=== PATIENT | female | born 1930 | race Caucasian/White ===

== ENCOUNTER 2016-02-28 04:04 | Inpatient (IN) ==
[2016-02-28] MEDS ORDERED: CATAPRES PO STA (04:45)
[2016-02-28] MEDS ORDERED: ZOFRAN 4 MG/2 ML IM STA (04:50)
[2016-02-28] MEDS ORDERED: MORPHINE 2 MG/ML SYRINGE IVP STA (04:50)
--- NOTE | 2016-02-28 04:54 | ED.PDOC ---
General ED Provider: Dr. KRZYSZTOF JONES Chief Complaint: Urinary Problem Stated Complaint: Been hurting in the lower back since saturday, the pain is getting gradually worse, no recent injury or falls, having problems with BM, today morning left arm tngling so she came for the evaluation Time Seen by Physician: 04:52 Mode of Arrival: Ambulance Information Source: Patient Primary Care Provider: RANDY ZAPATA Nursing and Triage Documentation Reviewed and Agree: Yes Musculoskeletal Complaint Exam - Back Pain Complaint/Exam Mechanism of Injury: Reports: No known trauma Symptoms Are: Still present Timing: Constant Episodes Lasting: Days Initial Severity: Moderate Current Severity: Moderate Location: Reports: Discrete Character: Reports: Aching, Throbbing Aggravating: Reports: Movements Alleviating: Reports: None Associated Signs and Symptoms: Denies: Swelling, Redness, Bruising, Fever, Weakness, Numbness, Tingling, Abdominal pain, Flank pain, Bladder incontinence, Bowel incontinence, Weight loss, Pain with weight bearing TAD Risk Factors: Reports: None AAA Risk Factors: Reports: None Cauda Equina Risk Factors: Reports: None Epidural Abcess Risk Factors: Reports: None Related Surgical History: Reports: None Focal Tenderness: Yes Paraspinal Muscle Tenderness: Yes Paraspinal Muscle Spasm: Yes Scoliosis: No Lordosis: No Kyphosis: No SLR Test: Right Negative, Left Negative Hip Motion Testing Pain: Right Negative, Left Negative Focal Weakness: Present: None Focal Sensory Loss: Present: None Gait: Present: Normal Differential Diagnoses: Fracture, Renal Colic, Strain, Sprain Review of Systems - Review Of Systems Constitutional: Reports: Malaise, Weakness Eyes: Reports: No symptoms Ears, Nose, Mouth, Throat: Reports: No symptoms Respiratory: Reports: No symptoms Cardiac: Reports: No symptoms GI: Reports: No symptoms : Reports: Pain Musculoskeletal: Reports: Back pain, Joint pain Skin: Reports: No symptoms Neurological: Reports: No symptoms Endocrine: Reports: No symptoms Hematologic/Lymphatic: Reports: No symptoms All Other Systems: Reviewed and Negative Past Medical History - Past Medical History Previously Healthy: No Endocrine: Reports: Dyslipidemia Cardiovascular: Reports: CAD, Hypertension, Other (PAD s/p left thigh Fem-pop) Respiratory: Reports: None Hematological: Reports: Anemia Gastrointestinal: Reports: GERD Genitourinary: Reports: None Neuro/Psych: Reports: None Musculoskeletal: Reports: Arthritis Cancer: Reports: None Last Menstrual Period: N/A - Surgical History General Surgical History: Reports: None, CABG (200, ), Other (CEA) - Family History Family History: Reports: None - Social History Smoking Status: Former smoker Hx Substance Use: No Alcohol Screening: None - Immunizations Tetanus Shot up to Date: No (2004) Physical Exam - Physical Exam Appearance: Ill-appearing, Thin Ill-appearing: Mild Eyes: Conjunctiva clear ENT: Ears normal, Nose normal, Oropharynx normal Respiratory: Airway patent, Breath sounds clear, Breath sounds equal, Respirations nonlabored Cardiovascular: RRR, Pulses normal, No rub, No murmur GI/: Soft, Nontender, No masses, Bowel sounds normal, No Organomegaly Musculoskeletal: Normal strength, ROM intact, No edema, No calf tenderness Skin: Warm (no rash in lower back), Dry, Normal color Neurological: Sensation intact, Motor intact, Reflexes intact, Cranial nerves intact, Alert, Oriented Psychiatric: Affect appropriate, Mood appropriate Interpretation - Radiology Interpretation Radiology Interpretation By: Radiologist Radiology Results: Negative Exam Interpreted: CT Scan Re-Evaluation - Re-Evaluation Time of Re-Evaluation: 06:50 (still hurting a lot in the lower back) Status: Unchanged Critical Care Note - Critical Care Note Total Time (mins): 0 Course - Course Hematology/Chemistry: 02/28/16 05:41 02/28/16 05:41 Orders, Labs, Meds: Lab Review 02/28/16 02/28/16 05:18 05:41 WBC 10.19 RBC 4.05 L Hgb 12.0 Hct 37.4 MCV 92.3 MCH 29.6 MCHC 32.1 RDW Coeff of Alyssa 14.1 Plt Count 281 Immature Gran % (Auto) 0.4 Neut % (Auto) 83.0 Lymph % (Auto) 8.9 L [place] % (Auto) 7.2 Eos % (Auto) 0.1 Baso % (Auto) 0.4 Immature Gran # (Auto) 0.0 Neut # 8.5 H Lymph # 0.9 [place] # 0.7 Eos # 0.0 Baso # 0.0 D-Dimer 1.30 Sodium 138 Potassium 4.0 Chloride 104 Carbon Dioxide 24 Anion Gap 14.0 BUN 18 Creatinine 1.08 Estimated GFR (MDRD) 48.00 BUN/Creatinine Ratio 16.66 Glucose 141 H Calcium 9.2 Total Bilirubin 0.50 AST 19 ALT 14 Alkaline Phosphatase 82 Total Creatine Kinase 46 Troponin I 0.0140 B-Natriuretic Peptide 228 H Total Protein 7.6 Albumin 3.4 Globulin 4.2 Albumin/Globulin Ratio 0.81 Urine Color Yellow Urine Clarity Clear Urine pH 5.0 Ur Specific Triangle 1.020 Urine Protein Negative Urine Glucose (UA) Negative Urine Ketones Negative Urine Blood Negative Urine Nitrite Negative Urine Bilirubin Negative Urine Urobilinogen 0.2 Ur Leukocyte Esterase 1+ Urine Microscopic WBC 2-5 Ur Squamous Epith Cells 2-5 Urine Bacteria 1+ Orders Category Date Time Status EKG-(ED ONLY) Stat CARDIO 02/28/16 04:51 Completed Bladder Scan [ED BLADDER SCAN] .ONCE EMERGENCY 02/28/16 04:46 Active Electrician Radio [ED HI RANGER OPERATOR APPLIED] .ONCE EMERGENCY 02/28/16 05:09 Active B-TYPE NATRIURETIC PEPTIDE Stat LAB 02/28/16 05:41 Completed CBC W/ AUTO DIFF Stat LAB 02/28/16 05:41 Completed COMPREHENSIVE METABOLIC PANEL Stat LAB 02/28/16 05:41 Completed CREATINE KINASE Stat LAB 02/28/16 05:41 Completed D-DIMER Stat LAB 02/28/16 05:41 Completed TROPONIN I Stat LAB 02/28/16 05:41 Completed URINALYSIS C & S IF INDICATED Stat LAB 02/28/16 05:18 Completed URINE CULTURE Stat LAB 02/28/16 05:53 Received Clonidine HCl [Catapres] MEDS 02/28/16 04:45 Discontinued 0.2 mg PO ONCE STA Morphine Sulfate [Morphine 2 mg/ml Syringe] MEDS 02/28/16 04:50 Discontinued 2 mg IVP ONCE STA Ondansetron HCl/Pf [Zofran 4 mg/2 ml] MEDS 02/28/16 04:50 Discontinued 4 mg IM ONCE STA CHEST, 1V AP ONLY Stat RADS 02/28/16 04:[address] ABDOMEN/PELVIS WO CONTRAST Stat RADS 02/28/16 04:[address] HEAD W/O CONTRAST Stat RADS 02/28/16 04:[address] LUMBAR SPINE W/O CONTRAST Stat RADS 02/28/16 04:50 Taken Medications Discontinued Medications Generic Name Dose Route Start Last Admin Trade Name Freq PRN Reason Stop Dose Admin Clonidine 0.2 mg 02/28/16 04:45 02/28/16 05:02 Catapres PO 02/28/16 04:46 0.2 mg ONCE STA Administration Morphine Sulfate 2 mg 02/28/16 04:50 02/28/16 05:33 Morphine 2 Mg/Ml Syringe IVP 02/28/16 04:51 2 mg ONCE STA Administration Ondansetron HCl 4 mg 02/28/16 04:50 02/28/16 05:33 Zofran 4 Mg/2 Ml IM 02/28/16 04:51 4 mg ONCE STA Administration Vital Signs: Temp Pulse Resp BP Pulse Ox 02/28/16 04:07 98 F 83 20 257/102 H 97 Departure - Departure Time of Disposition: 06:51 Disposition: ADMITTED INPATIENT Discharge Problem: Hypertension Qualifiers: Hypertension type: essential hypertension Qualifier Code: (I10) Essential ( primary) hypertension Back pain Qualifiers: Back pain location: low back pain Chronicity: acute Back pain laterality: right Sciatica presence: without sciatica Qualifier Code: (M54.5) Low back pain UTI (urinary tract infection) Qualifiers: Urinary tract infection type: acute cystitis Hematuria presence: without hematuria Qualifier Code: (N30.00) Acute cystitis without hematuria Instructions: Hypertension (ED) Condition: Stable Pt referred to PMD for follow-up: Yes Allergies/Adverse Reactions: Allergies brimonidine [From Alphagan P] Adverse Reaction (Verified 02/28/16 04:33) Home Medications: Ambulatory Orders Amlodipine Besylate/Benazepril [Lotrel 5-10 mg Capsule] 5 - 10 mg PO 2 TIMES PER WEEK 01/12/13 Ascorbic Acid [Vitamin C] 500 mg PO DAILY 01/12/13 Aspirin [Aspirin EC] 1 tab PO DAILY 01/12/13 Atorvastatin Calcium [Lipitor] 1 tab PO DAILY 01/12/13 Brimonidine Tartrate/Timolol [Combigan Eye Drops] 1 drop EACHEYE BID 01/12/13 Brinzolamide [Azopt] 1 drop EACHEYE TID 01/12/13 Carvedilol 6.25 mg PO BID 01/12/13 Chlordiazepoxide/Clidinium Br [Librax 2.5/5 mg] 1 cap PO BID 01/12/13 Cholecalciferol (Vitamin D3) [Vitamin D] 1 cap PO DAILY 01/12/13 Latanoprost [Xalatan] 1 drop EACHEYE BEDTIME 01/12/13 Montelukast Sodium [Singulair] 1 tab PO DAILY 01/12/13 Omeprazole Magnesium [Prilosec Otc] 1 tab PO DAILY 01/12/13 Vitamin E 1 cap PO DAILY 01/12/13 Clopidogrel Bisulfate [Plavix] 75 mg PO DAILY 02/28/16 Disposition Discussed With: Patient, Family
[2016-02-28 05:44] LABS: BASOPHILS % (AUTO) 0.4 % (0.0-3.0); EOSINOPHILS % (AUTO) 0.1 % (0.0-7.0); HEMATOCRIT 37.4 % (37.0-47.0); IMMATURE GRANULOCYTE % (AUTO) 0.4 % (0.0-5.0); LYMPHOCYTES # (AUTO) 0.9 K/uL (0.60-3.4); LYMPHOCYTES % (AUTO) 8.9 (10.0-50.0); MEAN CORPUSCULAR HEMOGLOBIN 29.6 pg (27.0-31.0); MEAN CORPUSCULAR HGB CONC 32.1 (31.8-35.4); MEAN CORPUSCULAR VOLUME 92.3 fl (81.0-99.0); MONOCYTES # (AUTO) 0.7 K/uL (0.4-2.0); MONOCYTES % (AUTO) 7.2 (0-10); NEUTROPHILS # (AUTO) 8.5 K/ul (2.0-6.9); PLATELET COUNT 281 10^3/uL (140-440); RED BLOOD COUNT 4.05 10^6/ul (4.20-5.40); WHITE BLOOD COUNT 10.19 K/ul (4.6-10.2)
[2016-02-28 05:46] LABS: BILIRUBIN,URINE Negative (NEGATIVE); KETONES,URINE Negative (NEGATIVE); LEUKOCYTE ESTERASE ,URINE 1+ (NEGATIVE); NITRITE,URINE Negative (NEGATIVE); PROTEIN,URINE Negative (NEGATIVE); URINE, BLOOD Negative (NEGATIVE)
[2016-02-28 05:52] LABS: ADD URINE MICROSCOPIC YES; BACTERIA,URINE 1+ (NOT PRESENT)
[2016-02-28 06:10] LABS: ALBUMIN 3.4 g/dL (3.4-5.0); ALBUMIN/GLOBULIN RATIO 0.81; BILIRUBIN,TOTAL 0.5 mg/dL (0.00-1.20); BUN/CREATININE RATIO 16.66; CALCIUM 9.2 mg/dL (8.2-10.2); CREATININE 1.08 mg/dL (0.60-1.30); TOTAL PROTEIN 7.6 g/dL (5.8-8.1); TROPONIN I 0.014 ng/ml (0.0000-0.4000)
--- NOTE | 2016-02-28 06:31 | CT ---
EXAM: CT scan brain without contrast HISTORY: Headache COMPARISON: None. FINDINGS: Contiguous axial images obtained from the skull base to the convexities without contrast utilizing 5-mm collimation. Sagittal and coronal reconstructions were imaged and reviewed. The wayne tricles and CSF spaces are prominent compatible with age appropriate atrophy. There is periventricu lar hypodensity noted compatible with chronic microvascular disease. Atherosclerotic changes are se en involving the bilateral vertebral and internal carotids at the level of the cavernous sinus. Vis ualized paranasal sinuses and mastoid air cells are clear. IMPRESSION: Age appropriate atrophy with chronic microvascular disease. ASVD.
--- NOTE | 2016-02-28 06:45 | CT ---
EXAM: CT scan abdomen pelvis without contrast HISTORY: Back and flank pain COMPARISON: None. FINDINGS: Contiguous axial images obtained through the abdomen pelvis without contrast utilizing 3- mm collimation. Sagittal and coronal reconstructions were imaged and reviewed.. There are bibasila r bronchiectatic changes. There is moderate sized hiatal hernia. The gallbladder is fluid filled w ithout cholelithiasis. There is dense ASVD involving the aorta and mesenteric vessels without aneur ysm. Benign granulomatous changes are seen within the spleen. The pancreas is atrophic.. The live r and adrenal glands have normal unenhanced CT appearance. Renovascular calcification is seen withi n both kidneys. There is normal appendix. There is extensive diverticulosis without diverticulitis . There is colonic fecal stasis. . There is lumbar dextroscoliosis with extensive degenerative arya nges throughout the visualized thoracolumbar spine bilateral hips. IMPRESSION: Bibasilar bronchiectatic changes. Moderate sized hiatal hernia. Extensive ASVD without aneurysm. Extensive diverticulosis without diverticulitis. Colonic fecal stasis without obstruction or free fluid. Normal appendix.
[2016-02-28] MEDS ORDERED: MORPHINE 2 MG/ML SYRINGE IVP PRN (06:53)
[2016-02-28] MEDS ORDERED: ZOFRAN 4 MG/2 ML IVP PRN (06:53)
[2016-02-28] MEDS ORDERED: DECADRON 4 MG/ML SDV IM STA (06:53)
--- NOTE | 2016-02-28 06:54 | CT ---
EXAM: CT scan lumbar spine HISTORY: Back pain COMPARISON: None. FINDINGS: Contiguous axial images obtained through the lumbar spine utilizing 3-mm collimation. Sa gittal and coronal reconstructions were imaged and reviewed.. There is moderate dextroscoliosis valerie tered at L2-L3. Marked degenerate disc disease with endplate degenerative changes are noted at T12- L1 through L4-L5. Moderate generalized osteopenia. Segmental analysis: T12-T1: Spondylitic bulge narrows the AP dimension of the central canal. Marginal spurring narrows both neur al foramen. L1-L2: There is moderate facet arthropathy with marginal spurring narrowing the left neural foramen L2-L3: Spondylitic bulge with facet arthropathy triangulate the central canal with bilateral neural foramin al narrowing left greater than right.. L3-L4: There is a moderate spondylitic bulge with moderate facet arthropathy. Central canal and right neur al foramen are patent. There is marked narrowing left neural foramen. L4-L5: Spondylitic bulge mildly narrows the central canal. Facet t arthropathy narrowing both neural forame n. L5-S1: There is mild spondylitic bulge with facet arthropathy. . There is moderate facet arthropathy with mild right neural foraminal narrowing. IMPRESSION: Moderate dextroscoliosis centered L2-L3. Extensive multilevel degenerate disc disease with multilevel central canal and foraminal stenosis as described.
--- NOTE | 2016-02-28 07:05 | DI ---
EXAM: CHEST FRONTAL VIEW HISTORY: Cough. COMPARISON: 01/12/2013 FINDINGS: Heart size is within normal limits. There is moderate aortic atherosclerosis. Sternotom y wires are present. There is diffuse, chronic appearing interstitial accentuation. Hyperinflation is noted. No definite consolidated pneumonia. IMPRESSION: A component chronic obstructive pulmonary disease is suggested radiographically. Correl ate clinically. No definite consolidated pneumonia.]
[2016-02-28 08:32] VITALS: BMI 15.3
[2016-02-28] MEDS ORDERED: TORADOL IVP STA (08:32)
[2016-02-28] MEDS ORDERED: TORADOL ONE (08:44)
[2016-02-28] MEDS ORDERED: VITAMIN E PO SCH (09:00)
[2016-02-28] MEDS ORDERED: ATORVASTATIN CALCIUM PO SCH (09:00)
[2016-02-28] MEDS ORDERED: NON-FORMULARY MEDICATION (Cholecalciferol (Vitamin D3) [Vitamin D3] 1 CAP) PO SCH ×22 (09:00)
[2016-02-28] MEDS ORDERED: ASCORBIC ACID 500 MG PO SCH (09:00)
[2016-02-28] MEDS ORDERED: NON-FORMULARY MEDICATION (Omeprazole Magnesium [Prilosec Otc] 1 TAB) PO SCH (09:00)
[2016-02-28] MEDS: ROCEPHIN 1 GM in SODIUM CHLORIDE 50 ML IV SCH (09:01)
[2016-02-28] MEDS: LIBRAX 2.5/5 MG PO SCH ×2 (09:01→20:08)
[2016-02-28] MEDS: ZESTRIL PO SCH (09:01)
[2016-02-28] MEDS: PRILOSEC PO SCH (09:01)
[2016-02-28] MEDS: VITAMIN C PO SCH (09:01)
[2016-02-28] MEDS: VITAMIN D PO SCH (09:01)
[2016-02-28] MEDS: PLAVIX PO SCH (09:02)
[2016-02-28] MEDS: COREG PO SCH ×2 (09:02→20:08)
[2016-02-28] MEDS: SINGULAIR PO SCH (09:02)
[2016-02-28] MEDS: LIPITOR PO SCH (09:02)
[2016-02-28] MEDS: LOVENOX SUBCUT SCH (09:02)
[2016-02-28] MEDS: VITAMIN E PO SCH (09:02)
[2016-02-28] MEDS: ASPIRIN EC PO SCH (09:02)
[2016-02-28 13:28] LABS: TROPONIN I 0.054 ng/ml (0.0000-0.4000)
[2016-02-28] MEDS: TIMOLOL EACHEYE SCH ×2 (14:57→20:19)
[2016-02-28] MEDS: [UNRECOGNIZED DRUG - OTHER] EACHEYE SCH ×2 (14:57→20:19)
[2016-02-28] MEDS: BRIMONIDINE TARTRATE EACHEYE SCH ×2 (14:57→20:19)
[2016-02-28] MEDS: BRINZOLAMIDE EACHEYE SCH ×3 (14:57→20:19)
[2016-02-28] MEDS: XALATAN OP SCH (20:09)
[2016-02-28 21:15] LABS: TROPONIN I 0.029 ng/ml (0.0000-0.4000)
[2016-02-29 05:24] LABS: BASOPHILS % (AUTO) 0.3 % (0.0-3.0); EOSINOPHILS % (AUTO) 0.2 % (0.0-7.0); HEMATOCRIT 34.6 % (37.0-47.0); HEMOGLOBIN 10.9 g/dl (12.0-16.0); IMMATURE GRANULOCYTE % (AUTO) 0.4 % (0.0-5.0); LYMPHOCYTES # (AUTO) 1.4 K/uL (0.60-3.4); MEAN CORPUSCULAR HEMOGLOBIN 29.4 pg (27.0-31.0); MEAN CORPUSCULAR HGB CONC 31.5 (31.8-35.4); MEAN CORPUSCULAR VOLUME 93.3 fl (81.0-99.0); MONOCYTES # (AUTO) 1.3 K/uL (0.4-2.0); MONOCYTES % (AUTO) 11.1 (0-10); PLATELET COUNT 261 10^3/uL (140-440); RED BLOOD COUNT 3.71 10^6/ul (4.20-5.40); WHITE BLOOD COUNT 11.85 K/ul (4.6-10.2)
[2016-02-29 05:41] LABS: ALBUMIN 2.9 g/dL (3.4-5.0); ALBUMIN/GLOBULIN RATIO 0.81; BILIRUBIN,TOTAL 0.31 mg/dL (0.00-1.20); BUN/CREATININE RATIO 23.07; CALCIUM 9.1 mg/dL (8.2-10.2); CREATININE 1.04 mg/dL (0.60-1.30); TOTAL PROTEIN 6.5 g/dL (5.8-8.1)
[2016-02-29] MEDS ORDERED: PEG EACHEYE PRN (09:16)
[2016-02-29] MEDS ORDERED: PROPYLENE GLYCOL EACHEYE PRN (09:16)
[2016-02-29] MEDS ORDERED: [UNRECOGNIZED DRUG - OTHER] EACHEYE PRN (09:16)
[2016-02-29] MEDS: ZESTRIL PO SCH (09:42)
[2016-02-29] MEDS: PRILOSEC PO SCH (09:42)
[2016-02-29] MEDS: PLAVIX PO SCH (09:42)
[2016-02-29] MEDS: VITAMIN D PO SCH (09:42)
[2016-02-29] MEDS: LIPITOR PO SCH (09:42)
[2016-02-29] MEDS: VITAMIN E PO SCH (09:43)
[2016-02-29] MEDS: COREG PO SCH ×2 (09:43→18:03)
[2016-02-29] MEDS: SINGULAIR PO SCH (09:43)
[2016-02-29] MEDS: LIBRAX 2.5/5 MG PO SCH ×2 (09:44→21:10)
[2016-02-29] MEDS: ASPIRIN EC PO SCH (09:44)
[2016-02-29] MEDS: VITAMIN C PO SCH (09:44)
[2016-02-29] MEDS: LOVENOX SUBCUT SCH (09:45)
[2016-02-29] MEDS: TIMOLOL EACHEYE SCH ×3 (09:47→20:30)
[2016-02-29] MEDS: BRIMONIDINE TARTRATE EACHEYE SCH ×3 (09:47→20:30)
[2016-02-29] MEDS: [UNRECOGNIZED DRUG - OTHER] EACHEYE SCH ×3 (09:47→20:30)
[2016-02-29] MEDS: BRINZOLAMIDE EACHEYE SCH ×4 (09:48→20:19)
[2016-02-29] MEDS: ROCEPHIN 1 GM in SODIUM CHLORIDE 50 ML IV SCH (10:05)
--- NOTE | 2016-02-29 10:38 | HP ---
DATE OF SERVICE: 02/28/16 REASON FOR HOSPITALIZATION: Back pain, lower right flank going to the right lower quadrant with duration of 24 hours. HISTORY OF PRESENT ILLNESS: The patient is an 85 year old white female was seen in the emergency with urinary tract infection type of symptoms. The patient's U/A was abnormal. Showed 1+ Leukocytes, +1 urine bacteria. The patient's blood pressure also was noted to be high at 257/102. The patient also had some possibility of back pain coming from her DJD of the spine. In the emergency room the patient was given Catapres 0.2mg one dose along with Morphine sulfate and Zofran. By the time the patient came to the floor her systolic blood pressure was 180. REVIEW OF SYSTEMS: CONSTITUTIONAL: No night sweats. Fatigue and weakness. No fever or chills. HEENT: Eyes: No visual changes. No eye pain. No eye discharge. ENT: No runny nose. No epistaxis. No sinus pain. No sore throat. No odynophagia. No ear pain. No congestion. RESPIRATORY: No cough, no congestion. No hemoptysis. CARDIOVASCULAR: No angina symptoms. No CHF symptoms. No atypical chest pain for CAD. No palpitations. No shortness of breath. Left arm tingling but no chest pain. No PND. No orthopnea. GASTROINTESTINAL: No abdominal pain. Mild Nausea lately. No diarrhea or constipation. No hematemesis. No hematochezia. Right flank pain going to the right upper quadrant rated as 3 to 4 on scale of 1 to 10. The patient says that she is feeling somewhat better. Normal appetite. GENITOURINARY: No urgency. No frequency. No dysuria. No hematuria. No obstructive symptoms. No discharge. No pain. No significant abnormal bleeding. MUSCULOSKELETAL: No musculoskeletal pain. No joint swelling. No arthritis. NEUROLOGICAL: No headache. No neck pain. No syncope. No seizures. No dizziness. PSYCHIATRIC: Not anxious. No depression. No suicidal thoughts. No homicidal thoughts. SKIN: No rash. No lesions. No wounds. ENDOCRINE: No unexplained weight loss. No weight gain. HEMATOLOGIC/LYMPHATIC: No anemia. No purpura. No petechiae. No prolonged or excessive bleeding. No palpable lymph nodes. PERSONAL/FAMILY/SOCIAL HISTORY: The patient is and lives with the help of the family. Non-smoker. No alcohol abuse. Does most of the activity of daily living. PAST MEDICAL/SURGICAL PROBLEMS: History of peripheral arterial disease with left Fem Pop bypass surgery Hypertension Coronary artery disease Dyslipidemia Coronary bypass surgery MEDICATIONS: Amlodipine Benazepril 5-10mg twice a day Ascorbic acid 500mg PO daily Aspirin 81mg PO daily Atorvastatin 40mg PO daily Carvedilol 6.25mg PO twice a day Librax twice a day Singulair 10mg PO daily Prilosec 20mg PO daily Plavix 75mg PO daily ALLERGIES: Alphagan P- adverse reaction eye drops likely PHYSICAL EXAMINATION: GENERAL: The patient is oriented to time, place and person. VITAL SIGNS: Temperature 98, pulse 83, respiratory rate 20, blood pressure 257/ 102 pulse ox 97%. HEENT: Head normocephalic, atraumatic. Eyes: Extraocular muscles are intact. Pupils are equal, round and reactive to light and accommodation. Ears: No lesions. Nose appeared normal. Throat: No exudate or erythema. Face: Symmetrical NECK: Supple. No JVP, no carotid bruit. No lymphadenopathy or thyromegaly. LUNGS: Decreased breath sounds but clear to auscultation. Percussion note normal. Chest symmetrical. HEART: S1, S2, no S3. No murmurs. No cyanosis or clubbing. No ascites. Pulses: Dorsalis pedis and posterior tibial pulses +1 to +2 both sides. ABDOMEN: Soft. Nontender. Bowel sounds active. No CVA tenderness. No mass felt. EXTREMITIES: No edema. Full range of motion of all extremities, equal. NEUROLOGIC: No focal deficit. Cranial nerves II through XII are grossly intact. No headache, no double vision or headache. SKIN: Not dry. Intact. Turgor - normal. LYMPHATIC: No palpable lymph nodes/no lymphedema. MUSCULOSKELETAL: Normal joints with no swelling. Muscle tone is normal. LABS: Hgb 12, hct 37, WBC 10,000 normal differential, creatinine 1, BUN 18, ALT AST normal, D-dimer negative, BNP 228 borderline high, U/A 1+ leukocyte esterase and 1+ bacteria and Troponin normal. EKG sinus rhythm, no acute changes. Chest x -ray chronic lung disease. CT scan of the lumbar spine moderate DJD of the spine , extensive DJD of the disc. CT scan of abdomen moderate size hiatal hernia, Extensive ASVD and Extensive diverticulosis. CT of the brain age appropriate atrophy. ASSESSMENT: 1. Severe Hypertension 2. Urinary Tract Infection 3. Coronary bypass surgery 4. Left Fem Pop bypass surgery 5. Peripheral arterial disease 6. Dyslipidemia 7. Generalized Osteoarthritis PLAN: 1. Admit regular telemetry 2. Monitor blood pressure 3. Continue all BP medications 4. Vasotec IV for blood pressure over 160 Q 12 5. Rocephin 1 gram Q 24 hours. 6. Toradol 30 IV for the pain 12 hourly 7. Continue the rest of the medication as before. CONDITION: Stable TIME SPENT: More than 70 minutes. MTDD
[2016-02-29] MEDS ORDERED: DECADRON 4 MG/ML SDV IM STA (10:50)
[2016-02-29] MEDS: TORADOL IVP SCH ×2 (11:58→21:12)
[2016-02-29] MEDS: XALATAN OP SCH (21:20)
[2016-03-01 06:18] LABS: BASOPHILS # (AUTO) 0.1 K/uL (0-0.2); BASOPHILS % (AUTO) 0.6 % (0.0-3.0); EOSINOPHILS % (AUTO) 0.2 % (0.0-7.0); HEMATOCRIT 33.1 % (37.0-47.0); HEMOGLOBIN 10.7 g/dl (12.0-16.0); IMMATURE GRANULOCYTE % (AUTO) 0.4 % (0.0-5.0); LYMPHOCYTES # (AUTO) 1.8 K/uL (0.60-3.4); MEAN CORPUSCULAR HEMOGLOBIN 29.7 pg (27.0-31.0); MEAN CORPUSCULAR HGB CONC 32.3 (31.8-35.4); MEAN CORPUSCULAR VOLUME 91.9 fl (81.0-99.0); MONOCYTES # (AUTO) 1.1 K/uL (0.4-2.0); MONOCYTES % (AUTO) 9.9 (0-10); NEUTROPHILS # (AUTO) 7.8 K/ul (2.0-6.9); NEUTROPHILS % (AUTO) 71.9; PLATELET COUNT 269 10^3/uL (140-440); WHITE BLOOD COUNT 10.81 K/ul (4.6-10.2)
[2016-03-01] MEDS ORDERED: PRILOSEC PO SCH (06:30)
[2016-03-01 06:43] LABS: ALBUMIN 2.9 g/dL (3.4-5.0); ALBUMIN/GLOBULIN RATIO 0.81; BILIRUBIN,TOTAL 0.27 mg/dL (0.00-1.20); BUN/CREATININE RATIO 30.63; CALCIUM 8.9 mg/dL (8.2-10.2); CREATININE 1.11 mg/dL (0.60-1.30); TOTAL PROTEIN 6.5 g/dL (5.8-8.1)
[2016-03-01] MEDS ORDERED: ASPIRIN EC PO SCH (08:00)
[2016-03-01] MEDS ORDERED: CIPRO PO SCH (08:30)
[2016-03-01] MEDS: TORADOL IVP SCH (09:00)
[2016-03-01] MEDS: VITAMIN D PO SCH (09:08)
[2016-03-01] MEDS: ZESTRIL PO SCH (09:10)
[2016-03-01] MEDS: BRIMONIDINE TARTRATE EACHEYE SCH (09:13)
[2016-03-01] MEDS: [UNRECOGNIZED DRUG - OTHER] EACHEYE SCH (09:13)
[2016-03-01] MEDS: TIMOLOL EACHEYE SCH (09:13)
[2016-03-01] MEDS: BRINZOLAMIDE EACHEYE SCH (09:14)
[2016-03-01] MEDS: LIPITOR PO SCH (09:15)
[2016-03-01] MEDS: VITAMIN E PO SCH (09:15)
[2016-03-01] MEDS: PLAVIX PO SCH (09:15)
[2016-03-01] MEDS: VITAMIN C PO SCH (09:16)
[2016-03-01] MEDS: LIBRAX 2.5/5 MG PO SCH (09:16)
[2016-03-01] MEDS: COREG PO SCH (09:17)
[2016-03-01] MEDS: LOVENOX SUBCUT SCH (09:17)
[2016-03-01] MEDS: SINGULAIR PO SCH (09:17)
--- NOTE | 2016-03-01 11:05 | PCM.PROG ---
Attending Provider: ATTENDING PROVIDER: Dr. RANDY ZAPATA DATE OF SERVICE: 03/01/16 SUBJECTIVE: This 85 year old WHITE/ F was hospitalized 02/28/16. The patient is hospitalized with back pain. The patient's pain has resolved and she is feeling better. Blood pressure is under control. UTI was treated with Rocephin and Cipro was added. REVIEW OF SYSTEMS: CONSTITUTIONAL: No night sweats. No fatigue, malaise, lethargy. No fever or chills. HEENT: Eyes: No visual changes. No eye pain. No eye discharge. ENT: No runny nose. No epistaxis. No sinus pain. No odynophagia. No congestion. RESPIRATORY: No cough, no congestion. No hemoptysis. CARDIOVASCULAR: No angina symptoms. No CHF symptoms. No atypical chest pain for CAD. No palpitations. No shortness of breath. GASTROINTESTINAL: No abdominal pain. No nausea or vomiting. No diarrhea or constipation. No hematemesis. No hematochezia. GENITOURINARY: No urgency. No frequency. No dysuria. No hematuria. No obstructive symptoms. No discharge. No pain. No significant abnormal bleeding. MUSCULOSKELETAL: No musculoskeletal pain; no joint swelling. NEUROLOGICAL: Awake, alert, oriented to time, place and person. No headache. No neck pain. No syncope. No seizures. No dizziness. PSYCHIATRIC: Not anxious. No depression. No suicidal thoughts. No homicidal thoughts. SKIN: No rash. No lesions. No wounds. ENDOCRINE: No unexplained weight loss. No weight gain. HEMATOLOGIC/LYMPHATIC: No anemia. No purpura. No petechiae. No prolonged or excessive bleeding. No palpable lymph nodes. PHYSICAL EXAMINATION: GENERAL: The patient is awake, alert and oriented, lying in bed in no distress. VITAL SIGNS: Temperature 97.7 F, Pulse 81, Respiratory Rate 20, BP 154/71, Pulse Ox 96% HEENT: Head normocephalic, atraumatic. Eyes: Extraocular muscles are intact. Pupils are equal, round and reactive to light and accommodation. Ears: No lesions. Nose appeared normal. Throat: No exudate or erythema. NECK: Supple. No JVD, no carotid bruit. No lymphadenopathy or thyromegaly. LUNGS: Decreased breath sounds. Clear to auscultation. Percussion note normal. Chest symmetrical. HEART: S1, S2, no S3. No murmurs. No cyanosis or clubbing. No ascites. Pulses: Dorsalis pedis and posterior tibial pulses +1 to +2 both sides. ABDOMEN: Soft. Non-tender. Bowel sounds active. No CVA tenderness. No mass felt. EXTREMITIES: No edema. Full range of motion of all extremities, equal. NEUROLOGIC: No focal deficit. Cranial nerves II through XII are grossly intact. No headache, no double vision or headache. SKIN: Not dry. Intact. Turgor-normal. LYMPHATIC: No palpable lymph nodes/no lymphedema. MUSCULOSKELETAL: Normal joints with no swelling. Muscle tone is normal. LAB REVIEW: 03/01/16 05:45 03/01/16 05:45 03/01/16 05:45: WBC 10.81 H, RBC 3.60 L, Hgb 10.7 L, Hct 33.1 L, MCV 91.9, MCH 29.7, MCHC 32.3, RDW Coeff of Alyssa 14.2, Plt Count 269, Immature Gran % (Auto) 0.4, Neut % (Auto) 71.9, Lymph % (Auto) 17.0, [place] % (Auto) 9.9, Eos % (Auto) 0.2, Baso % (Auto) 0.6, Immature Gran # (Auto) 0.0, Neut # 7.8 H, Lymph # 1.8, [place] # 1.1, Eos # 0.0, Baso # 0.1, Sodium 138, Potassium 4.0, Chloride 106, Carbon Dioxide 23, Anion Gap 13.0, BUN 34 H, Creatinine 1.11, Estimated GFR ( MDRD) 47.00, BUN/Creatinine Ratio 30.63, Glucose 80 L, Calcium 8.9, Total Bilirubin 0.27, AST 21, ALT 16, Alkaline Phosphatase 74, Total Protein 6.5, Albumin 2.9 L, Globulin 3.6, Albumin/Globulin Ratio 0.81 ASSESSMENT: 1. Back pain/radiculopathy resolving 2. Hypertension controlled 3. UTI controlled 4. Cardiovascular status stable PLAN: 1. Discharge home. 2. Echo to evaluate LV function. 3. Will see back in 5 to 7 days. 4. Advised Tylenol Arthritis 650 mg two twice a day. 5. May take Ibuprofen only once in awhile; to take with meal. 6. Change Lotrel to 5/10 mg one a day. 7. Discontinue Rocephin. 8. Start Cipro 250 mg b.i.d. for 3 days. Plan and coordination of the patient's care discussed in the presence of Yeast Stacker and nurse. EDUCATION: Discussed discharge plans with the patient. Discussed medications and their side effects. The patient voiced understanding and is agreeable. CONDITION: Stable SCRIBED BY: CELSO PALAFOX Stars Coordinator scribed while in presence of service performed by Dr. RANDY ZAPATA on 03/01/16 ([id number])
--- NOTE | 2016-03-01 11:07 | DS ---
DATE OF SERVICE: 03/01/16 FINAL DIAGNOSIS: 1. HYPERTENSION 2. BACK PAIN 3. MULTILEVEL DDD LUMBAR SPINE 4. UTI 5. CAD 6. PAD WITH LEFT FEMORAL-POPLITEAL BYPASS 7. DYSLIPIDEMIA 8. CABG 9. CAROTID ENDARTERECTOMY, BILATERAL 10. OSTEOARTHRITIS DISCHARGE INSTRUCTIONS: Followup appointment has been made with Dr. Hawkins on 03/06/2016 at 11:15 a.m. MEDICATIONS AT DISCHARGE: 1. Brinzolamide (Azopt) 15 mL drops one drop each eye b.i.d. 2. Brimonidine/Timolol one drop each eye b.i.d. 3. Omeprazole (Prilosec) one tab p.o. daily 4. Cholecalciferol (Vitmain D3) one cap p.o. daily 5. Vitamin E one cap p.o. daily 6. Ascorbic Acid (Vitamin C) 500 mg p.o. daily 7. Aspirin 81 mg one tablet p.o. daily 8. Carvedilol 6.25 mg p.o. b.i.d. 9. Chlordiazepoxide/Clidinium one cap p.o. b.i.d. 10. Atorvastatin one tab p.o. daily 40 mg 11. Montelukast (Singulair) 10 mg one tab p.o. daily 12. Latanoprost (Xalatan) one drop each eye at bedtime 13. Clopidogrel (Plavix) 75 mg p.o. daily 14. Systane eyedrops one drop each eye p.r.n. MEDICATION CHANGE: 1 Take Lotrel 5-10 mg daily for hypertension 2. May take Tylenol Arthritis 2 tablets every 12 hours for pain 3. May take Ibuprofen for severe back pain but take only with food 4. May take stool softener (Colace) 1-2 daily for constipation NEW PRESCRIPTIONS: Cipro 250 mg b.i.d. for 3 days DIET INSTRUCTIONS: Regular as tolerated ACTIVITY: Gradually resume activity as tolerated. Use walker with ambulation in and out of home when needed. SMOKING: Non applicable DISEASE SPECIFIC EDUCATION: Back pain, pain medication, Lotrel administration, activity and appointment. HOSPITAL COURSE: The patient is hospitalized with severe hypertension, UTI, back pain and right flank pain. The patient's condition has improved with Toradol IV 30 mg along with Morphine. UTI was questionable and was treated with Rocephin. The patient is going to be discharged on Cipro. Blood pressure has been under control with borderlne systolic hypertension. The patient is advised to take Lotrel every day (she was taking only twice a week). Cardiovascular status is stable. CONDITION: Stable. TIME SPENT: More than 60 minutes. MTDD
--- NOTE | 2016-03-01 12:16 | CM.DICTOOL ---
ADMISSION: 02/28/16 07:46 DISCHARGE: 2016 DATE OF SERVICE: 03/01/16 FINAL DIAGNOSIS Hypertension Back pain Multi-level DDD Lumbar Spine UTI CAD PAD with Left Femoral-Popliteal Bypass Dyslipidemia CABG Carotid Endarterectomy, bilateral Osteoarthritis LAST VITALS Temp Pulse Resp BP Pulse Ox 97.7 F 81 20 154/71 H 96 03/01/16 05:25 03/01/16 05:25 03/01/16 05:25 03/01/16 05:25 03/01/16 05:25 ACTIVE MEDICATIONS Ascorbic Acid (Vitamin C) 500 mg PO DAILY [facility] Last Admin: 03/01/16 09:16 Dose: 500 mg Aspirin (Aspirin Ec) 81 mg PO DAILYWM [facility] Last Admin: 03/01/16 09:16 Dose: 81 mg Atorvastatin Calcium (Lipitor) 40 mg PO DAILY [facility] Last Admin: 03/01/16 09:15 Dose: 40 mg Carvedilol (Coreg) 6.25 mg PO BIDWM [facility] Last Admin: 03/01/16 09:17 Dose: 6.25 mg Chlordiazepoxide/Clidinium (Librax 2.5/5 Mg) 1 cap PO BID [facility] Last Admin: 03/01/16 09:16 Dose: 1 cap Cholecalciferol (Vitamin D) 1,000 unit PO DAILY [facility] Last Admin: 03/01/16 09:08 Dose: 1,000 unit Ciprofloxacin (Cipro) 250 mg PO BIDCIPRO [facility] Last Admin: 03/01/16 09:16 Dose: 250 mg ( new prescription) Clopidogrel Bisulfate (Plavix) 75 mg PO DAILY [facility] Last Admin: 03/01/16 09:15 Dose: 75 mg Latanoprost (Xalatan) 1 drop OP BEDTIME [facility] Last Admin: 02/29/16 21:20 Dose: 1 drop Amlodipine/Benazepril (Lotrel 5-10 mg) 1 Daily Last Admin: Montelukast Sodium (Singulair) 10 mg PO DAILY [facility] Last Admin: 03/01/16 09:17 Dose: 10 mg Non-Formulary Medication (Brimonidine Tartrate/Timolol [Combigan 0.2%-0.5% Eye Drops]) 1 drop EACHEYE BID [facility] Last Admin: 03/01/16 09:13 Dose: 1 drop Non-Formulary Medication (Brinzolamide [Azopt]) 1 drop EACHEYE TID [facility] Last Admin: 03/01/16 09:14 Dose: 1 drop Non-Formulary Medication (Propylene Glycol/Peg 400 [Systane Ultra 0.4-0.3% Eye Drp]) 1 drop EACHEYE PRN PRN PRN Reason: DRY EYES Omeprazole (Prilosec) 20 mg PO QDAC [facility] Last Admin: 03/01/16 07:51 Dose: 20 mg Vitamin E (Vitamin E) 400 unit PO DAILY [facility] Last Admin: 03/01/16 09:15 Dose: 400 unit ALLERGIES brimonidine [From Alphagan P] Adverse Reaction (Verified 02/28/16 04:33) NEW PRESCRIPTIONS: Cipro 250 mg BID for 3 days SMOKING: Not Applicable DISEASE SPECIFIC EDUCATION: Back Pain Pain Medication Lotrel Administration Activity Appointment LAB REVIEW: 03/01/16 05:45 03/01/16 05:45 03/01/16 05:45: WBC 10.81 H, RBC 3.60 L, Hgb 10.7 L, Hct 33.1 L, MCV 91.9, MCH 29.7, MCHC 32.3, RDW Coeff of Alyssa 14.2, Plt Count 269, Immature Gran % (Auto) 0.4, Neut % (Auto) 71.9, Lymph % (Auto) 17.0, [place]pson % (Auto) 9.9, Eos % (Auto) 0.2, Baso % (Auto) 0.6, Immature Gran # (Auto) 0.0, Neut # 7.8 H, Lymph # 1.8, Upson # 1.1, Eos # 0.0, Baso # 0.1, Sodium 138, Potassium 4.0, Chloride 106, Carbon Dioxide 23, Anion Gap 13.0, BUN 34 H, Creatinine 1.11, Estimated GFR ( MDRD) 47.00, BUN/Creatinine Ratio 30.63, Glucose 80 L, Calcium 8.9, Total Bilirubin 0.27, AST 21, ALT 16, Alkaline Phosphatase 74, Total Protein 6.5, Albumin 2.9 L, Globulin 3.6, Albumin/Globulin Ratio 0.81 PLAN: Discharge home Diet: Regular as tolerated Activity: Gradually resume as activity as tolerated. Use Walker with ambulation in and out of the home when needed. An appointment has been arranged with Dr. Hawkins on 2016 at 11:15 am. Medication change: Take Lotrel 5-10 mg daily for hypertension May take Tylenol Arthritis 2 tablets every 12 hours for pain. May take ibuprofen for severe back pain, but take only with food. May take stool softener (colace) 1-2 daily for constipation. Ms. Marquez is alert and oriented x 3. She is able to transfer from the bed to the chair without assistance. She is independent with bed mobility. She is ambulatory in the room with use of a rolling walker. Meal intakes are good at 75% of a regular diet. No abdominal pain or nausea is reported. She denies pain or burning with urination. No open areas, rashes or decubitus ulcers are present. Skin is intact. Myles Hawkins MD
--- NOTE | 2016-03-01 13:44 | PN ---
DATE OF SERVICE: 02/29/16 SUBJECTIVE: The patient is an 85 year old white female hospitalized with back pain, right flank pain and hypertension. The patient's condition has improved and the back pain is much less after considering her history it seems to be that patient has mostly back pain. Her UTI is questionably but again she is being treated for UTI. The patient's blood pressure has been brought under control and the patient 's blood pressure is now 145/61. Toradol and Decadron has helped the patient. REVIEW OF SYSTEMS: CONSTITUTIONAL: No night sweats. No fatigue, malaise, lethargy. No fever or chills. HEENT: Eyes: No visual changes. No eye pain. No eye discharge. ENT: No runny nose. No epistaxis. No sinus pain. No sore throat. No odynophagia. No congestion. RESPIRATORY: No cough, no congestion. No hemoptysis. CARDIOVASCULAR: No angina symptoms. No CHF symptoms. No atypical chest pain for CAD. No palpitations. No shortness of breath. No PND. No orthopnea. GASTROINTESTINAL: No abdominal pain. No nausea or vomiting. No diarrhea or constipation. No hematemesis. No hematochezia. Appetite has improved and she is feeling better. GENITOURINARY: No urgency. No frequency. No dysuria. No hematuria. No obstructive symptoms. No discharge. No pain. No significant abnormal bleeding. MUSCULOSKELETAL: No musculoskeletal pain; no joint swelling. Midback pain. The patient has severe DJD of the spine. NEUROLOGICAL: No headache. No neck pain. No syncope. No seizures. No dizziness. PSYCHIATRIC: Not anxious. No depression. No suicidal thoughts. No homicidal thoughts. SKIN: No rash. No lesions. No wounds. ENDOCRINE: No unexplained weight loss. No weight gain. HEMATOLOGIC/LYMPHATIC: No anemia. No purpura. No petechiae. No prolonged or excessive bleeding. No palpable lymph nodes. PHYSICAL EXAMINATION: GENERAL: The patient is oriented to time, place and person. VITAL SIGNS: Temperature 97.5, pulse 70, respiratory 16, blood pressure 145/60 and pulse ox 97%. HEENT: Head normocephalic, atraumatic. Eyes: Extraocular muscles are intact. Pupils are equal, round and reactive to light and accommodation. Ears: No lesions. Nose appeared normal. Throat: No exudate or erythema. NECK: Supple. No JVD, no carotid bruit. No lymphadenopathy or thyromegaly. LUNGS: Decreased breath sounds but clear to auscultation. Percussion note normal. Chest symmetrical. HEART: S1, S2, no S3. No murmurs. No cyanosis or clubbing. No ascites. Pulses: Dorsalis pedis and posterior tibial pulses bilaterally. ABDOMEN: Soft. Nontender. Bowel sounds active. No CVA tenderness. No mass felt. EXTREMITIES: No edema. Full range of motion of all extremities, equal. NEUROLOGIC: No focal deficit. Cranial nerves II through XII are grossly intact. No headache, no double vision or headache. SKIN: Not dry. Intact. Turgor - normal. LYMPHATIC: No palpable lymph nodes/no lymphedema. MUSCULOSKELETAL: Normal joints with no swelling. Muscle tone is normal. LABS: hgb 10.9, hct 34, WBC 11,800 normal differential, creatinine 1, BUN 24, potassium 4 and glucose 84. ASSESSMENT: 1. Back pain seems to be resolved with radiculopathy 2. Possible UTI treated with antibiotics 3. Severe hypertension, under control now. 4. Bilateral carotid and arterectomy 5. Coronary artery bypass surgery, left Fem Pop bypass PLAN: 1. The patient is advised to walk according to the son she is sedentary. 2. Continue all the medications and antibiotics. CONDITION: Stable TIME SPENT: More than 30 minutes. Plan and coordination of the patient's care discussed in the presence of nurse. CHIDI
[2016-03-01 14:41] VITALS: BP 123/57; TEMP 97.3
--- NOTE | 2016-03-05 13:35 | ECHO2D ---
Date of Exam: 03/01/16 Ordering Physician: RANDY ZAPATA Reason for Echo: HTN, HYPERLIPIDEMIA, CAD, PAD M-Mode Normal Adult Results LV Dimensions Normal Adult Results AoV Opening excursions >1.6 >1.6 LVEDD-base- 3.5-5.8 3.9 Ao root dimensions 2.0-3.7 2.7 LVESD-base- 3.1-4.6 L. Atrium dimensions 1.9-3.8 3.3 Post. Wall thickness 0.8-1.1 1.0 IV septum (thickness) 0.7-1.2 1.0 Post. Wall excursion 0.72-1.3 NORMAL Septal motion NORMAL Systolic motion R. Ventricular cavity 1.5-2.0 NORMAL LVEF 60% 72% Paradoxical septal wall motion NORMAL 2-D : 2-D M Mode Echocardiogram was performed using apical four chamber and left parasternal long and short axis views. Mitral, tricuspid and aortic valves appear to be normal. Contractility of the left ventricle seems to be normal, so is the cavity size. Left atrial cavity size and aortic root appear to be normal. There is no pericardial effusion. There is no thrombus noted in the left ventricular or left aortic cavity. No mitral valve prolapse noted. M-MODE: MV: NORMAL AV: NORMAL TV: NORMAL PV: CHAMBER SIZE: NORMAL WALL MOTION: NORMAL PERICARDIUM: NORMAL INTERPRETATION: 1. NORMAL 2 "D" "M" MODE ECHO MTDD
== END 2016-03-01 14:40 | disposition home or self-care (01) | DRG 690 ==
LOC: ED 04:04 → MEDSURG A 07:46
PROVIDERS: ADMIT Internal Medicine; ATTEND Internal Medicine
DX: N30.00 Acute cystitis without hematuria (principal); I10 Essential (primary) hypertension; M54.5 Low back pain; M51.36 Other intervertebral disc degeneration, lumbar region; I25.10 Atherosclerotic heart disease of native coronary artery without angina pectoris; I73.9 Peripheral vascular disease, unspecified; E78.5 Hyperlipidemia, unspecified; M19.90 Unspecified osteoarthritis, unspecified site; Z95.1 Presence of aortocoronary bypass graft; Z95.820 Peripheral vascular angioplasty status with implants and grafts; Z79.899 Other long term (current) drug therapy
CPT/HCPCS: 36415; 51798; 80053; 81001; 82550; 83880; 84484; 85025; 85379; 87086; 93005; 93010; 96372; 96374; 99284

== ENCOUNTER 2016-08-23 21:14 | Emergency (ER) ==
[2016-08-23 21:33] VITALS: BP 148/41; TEMP 97.8; BMI 20.1
--- NOTE | 2016-08-23 21:40 | ED.PDOC ---
General ED Provider: Dr. SCOTTY HERNÁNDEZ Chief Complaint: Dizziness Stated Complaint: patient is an 86 year old female who is brought to ER per [facility]. Pt. c/o dizziness/light headedness with onset at 7:15 pm Denies any nausea states that she has some bluring of vision. Time Seen by Physician: 21:37 Mode of Arrival: Ambulance Information Source: Patient, EMT Exam Limitations: No limitations Primary Care Provider: RANDY ZAPATA Nursing and Triage Documentation Reviewed and Agree: Yes Neurological Complaint Exam - Dizziness Complaint/Exam Last Known Well: Onset: Gradual Duration: 1 day Symptoms Are: Still present (mild) Timing: Intermittent (with position changes) Initial Severity: Moderate Current Severity: Mild Character: Reports: Lightheaded Aggravating: Reports: Position change Alleviating: Reports: Lying down Associated Signs and Symptoms: Denies: Nausea, Vomiting, Diaphoresis, Tinnitus, Chest pain, Short of air, Palpitations, Unsteady gait, GI blood loss, Visual changes, Decreased oral intake, Change in medication, Change in diet, OTC meds, Loss of balance Cardiac Risk Factors: Reports: Hypertension CVA Risk Factors: Reports: Hypertension, PVD Related Surgical History: Reports: None JVD Present: No Carotid Bruit Present: No Rectal Heme Positive: No Glascow Coma Scale (see protocol): 15 Nystagmus Present: No Gag Reflex Present: No Meningeal Signs Positive: No Focal Weakness: Present: None Focal Sensory Loss: Present: None Gait: Normal [id number]-xa-[id number]: Normal Findings Romberg Test Positive: No Babinski Sign: Negative Right, Negative Left Heel to Toe Normal: Yes Magnolia-Hallpike Test Positive: No Differential Diagnoses: Anxiety, CAD, WA, BPPV, Hypovolemia Quality Indicators for Cardiac Chest Pain: EKG in 10min. Quality Indicators for AMI: EKG in 10min. Quality Indicator For Non-Traumatic Chest Pain/Syncope: EKG Performed Review of Systems - Review Of Systems Constitutional: Reports: Weakness (mild), Loss of appetite Eyes: Reports: No symptoms Ears, Nose, Mouth, Throat: Reports: No symptoms Respiratory: Reports: No symptoms Cardiac: Reports: Lightheadedness. Denies: Chest pain, Syncope GI: Reports: No symptoms : Reports: No symptoms Musculoskeletal: Reports: No symptoms Skin: Reports: No symptoms Neurological: Reports: Anxiety Endocrine: Reports: Unexplained weight loss All Other Systems: Reviewed and Negative Past Medical History - Past Medical History Endocrine: Reports: Dyslipidemia Cardiovascular: Reports: CAD, Hypertension, Other (PAD s/p left thigh Fem-pop) Respiratory: Reports: COPD Hematological: Reports: Anemia Gastrointestinal: Reports: GERD Genitourinary: Reports: None Neuro/Psych: Reports: None Musculoskeletal: Reports: Arthritis Cancer: Reports: None Last Menstrual Period: at 45 y/o - Surgical History General Surgical History: Reports: None, CABG (1999, ), Other (CEA) - Family History Family History: Reports: None - Social History Smoking Status: Former smoker Hx Substance Use: No Alcohol Screening: None - Immunizations Tetanus Shot up to Date: No Physical Exam - Physical Exam Appearance: Ill-appearing, No pain distress, Thin Ill-appearing: Mild Eyes: SO, EOMI, Conjunctiva clear ENT: Ears normal, Nose normal, Oropharynx normal Neck: Supple Respiratory: Airway patent, Breath sounds clear, Breath sounds equal, Respirations nonlabored, Rhonchi (Anteriorly, clear posterioly ) Cardiovascular: RRR, Pulses normal, No rub, No murmur GI/: Soft, Nontender, No masses, Bowel sounds normal, No Organomegaly Musculoskeletal: Normal strength, ROM intact, No edema, No calf tenderness Skin: Warm, Dry, Normal color Neurological: Sensation intact, Motor intact, Reflexes intact, Cranial nerves intact, Alert, Oriented Psychiatric: Affect appropriate, Mood appropriate Interpretation - EKG Interpretation Time of EKG #1: 22:00 Rate: Balaji Rhythm: Sinus [place]: NL ST Segment: Normal Interpretation: old septal infact Critical Care Note - Critical Care Note Total Time (mins): 0 Course - Course Hematology/Chemistry: 08/23/16 22:00 08/23/16 22:00 Orders, Labs, Meds: Lab Review 08/23/16 22:00 WBC 7.22 RBC 3.43 L Hgb 9.2 L Hct 29.5 L MCV 86.0 MCH 26.8 L MCHC 31.2 L RDW Coeff of Alyssa 15.9 H Plt Count 289 Immature Gran % (Auto) 0.3 Neut % (Auto) 63.4 Lymph % (Auto) 21.3 [place] % (Auto) 11.2 H Eos % (Auto) 3.0 Baso % (Auto) 0.8 Immature Gran # (Auto) 0.0 Neut # 4.6 Lymph # 1.5 [place] # 0.8 Eos # 0.2 Baso # 0.1 Sodium 140 Potassium 3.4 L Chloride 107 Carbon Dioxide 24 Anion Gap 12.4 BUN 17 Creatinine 0.94 Estimated GFR (MDRD) 56.00 BUN/Creatinine Ratio 18.08 Glucose 127 H Lactic Acid 6.3 Calcium 8.6 Total Bilirubin 0.24 AST 18 ALT 12 Alkaline Phosphatase 80 Troponin I 0.0150 Total Protein 6.4 Albumin 2.7 L Globulin 3.7 Albumin/Globulin Ratio 0.73 Procalcitonin < 0.05 Orders Category Date Time Status EKG-(ED ONLY) Stat CARDIO 08/23/16 21:40 Completed Telemetry [TELEMETRY MONITORING] TELE CARE 08/23/16 21:41 Active BLOOD CULTURE Stat LAB 08/23/16 22:00 Received CBC W/ AUTO DIFF Stat LAB 08/23/16 22:00 Completed COMPREHENSIVE METABOLIC PANEL Stat LAB 08/23/16 22:00 Completed LACTIC ACID Stat LAB 08/23/16 22:00 Completed PROCALCITONIN Stat LAB 08/23/16 22:00 Completed TROPONIN I Stat LAB 08/23/16 22:00 Completed CHEST, 1V AP ONLY Stat RADS 08/23/16 22:[address] HEAD W/O CONTRAST Stat RADS 08/23/16 21:40 Completed Vital Signs: Temp Pulse Resp BP Pulse Ox 08/23/16 21:16 97.8 F 65 25 H 148/41 H 100 Departure - Departure Time of Disposition: 23:14 Disposition: HOME SELF-CARE Discharge Problem: Dizziness, Dehydration symptoms, Hypokalemia Anemia Qualifiers: Anemia type: other cause Other causes of anemia: chronic disease, other Qualifier Code: (D63.8) Anemia in other chronic diseases classified elsewhere Instructions: Dehydration (ED), Dizziness (ED) Condition: Stable Pt referred to PMD for follow-up: Yes Additional Instructions: Push fluids Follow up with PCP in 3 days Return if worse Allergies/Adverse Reactions: Allergies brimonidine [From Alphagan P] Adverse Reaction (Verified 08/23/16 21:27) Home Medications: Ambulatory Orders Ascorbic Acid [Vitamin C] 500 mg PO DAILY 01/12/13 Aspirin [Aspirin EC] 1 tab PO DAILY 01/12/13 Atorvastatin Calcium [Lipitor] 1 tab PO DAILY 01/12/13 Brimonidine Tartrate/Timolol [Combigan Eye Drops] 1 drop EACHEYE BID 01/12/13 Brinzolamide [Azopt] 1 drop EACHEYE TID 01/12/13 Carvedilol 6.25 mg PO BID 01/12/13 Cholecalciferol (Vitamin D3) [Vitamin D] 1 cap PO DAILY 01/12/13 Latanoprost [Xalatan] 1 drop EACHEYE BEDTIME 01/12/13 Montelukast Sodium [Singulair] 1 tab PO DAILY 01/12/13 Omeprazole Magnesium [Prilosec Otc] 1 tab PO DAILY 01/12/13 Vitamin E 1 cap PO DAILY 01/12/13 Clopidogrel Bisulfate [Plavix] 75 mg PO DAILY 02/28/16 Propylene Glycol/Peg 400 [Systane Ultra 0.4-0.3% Eye Drp] 1 drop EACHEYE PRN PRN 02/29/16 Atorvastatin Calcium 40 mg PO DAILY 08/23/16 Chlordiazepoxide HCl [Librium] 5 mg PO BID 08/23/16 Disposition Discussed With: Patient, Family
[2016-08-23 22:11] LABS: BASOPHILS # (AUTO) 0.1 K/uL (0-0.2); BASOPHILS % (AUTO) 0.8 % (0.0-3.0); EOSINOPHILS # (AUTO) 0.2 K/ul (0.0-0.7); HEMATOCRIT 29.5 % (37.0-47.0); HEMOGLOBIN 9.2 g/dl (12.0-16.0); IMMATURE GRANULOCYTE % (AUTO) 0.3 % (0.0-5.0); LYMPHOCYTES # (AUTO) 1.5 K/uL (0.60-3.4); LYMPHOCYTES % (AUTO) 21.3 (10.0-50.0); MEAN CORPUSCULAR HEMOGLOBIN 26.8 pg (27.0-31.0); MEAN CORPUSCULAR HGB CONC 31.2 (31.8-35.4); MONOCYTES # (AUTO) 0.8 K/uL (0.4-2.0); MONOCYTES % (AUTO) 11.2 (0-10); NEUTROPHILS # (AUTO) 4.6 K/ul (2.0-6.9); NEUTROPHILS % (AUTO) 63.4; PLATELET COUNT 289 10^3/uL (140-440); RED BLOOD COUNT 3.43 10^6/ul (4.20-5.40); WHITE BLOOD COUNT 7.22 K/ul (4.6-10.2)
[2016-08-23 22:36] LABS: ALBUMIN 2.7 g/dL (3.4-5.0); ALBUMIN/GLOBULIN RATIO 0.73; ANION GAP 12.4; BILIRUBIN,TOTAL 0.24 mg/dL (0.00-1.20); BUN/CREATININE RATIO 18.08; CALCIUM 8.6 mg/dL (8.2-10.2); CREATININE 0.94 mg/dL (0.60-1.30); POTASSIUM 3.4 mmol/L (3.5-5.10); TOTAL PROTEIN 6.4 g/dL (5.8-8.1); TROPONIN I 0.015 ng/ml (0.0000-0.4000)
--- NOTE | 2016-08-23 22:42 | CT ---
EXAM: CT head without contrast 08/23/2016. Sagittal and coronal reformatted images obtained HISTORY: Dizziness COMPARISON: 02/28/2016 FINDINGS: There is no evidence of intracranial hemorrhage. The midline is maintained. There is no hydrocephalus. Generalized atrophy. Chronic microvascular ischemic changes. No cerebellar tonsill ar ectopia. Evaluation of the calvarium shows no fracture. The mastoid air cells are normally pneu matized. IMPRESSION: No acute intracranial abnormality.
[2016-08-23] MEDS ORDERED: K-DUR PO STA (23:12)
--- NOTE | 2016-08-24 07:40 | DI ---
EXAM: Chest one view, frontal view only. HISTORY: Dizziness. COMPARISON: 02/28/2016. FINDINGS: Median sternotomy wires are present. Heart size at the upper limits of normal. Increase d interstitial markings noted throughout both lungs which are stable. There is mild left basilar co nsolidation. No large pleural effusion or pneumothorax identified. No acute osseous abnormality de tected. IMPRESSION: Some left basilar atelectasis or pneumonia.
== END 2016-08-23 23:30 | disposition home or self-care (01) ==
LOC: ED 21:14
DX: R42 Dizziness and giddiness (principal); E87.6 Hypokalemia; E86.0 Dehydration; D64.9 Anemia, unspecified; I25.810 Atherosclerosis of coronary artery bypass graft(s) without angina pectoris; E78.5 Hyperlipidemia, unspecified; I73.9 Peripheral vascular disease, unspecified; I11.9 Hypertensive heart disease without heart failure; Z79.899 Other long term (current) drug therapy
CPT/HCPCS: 36415; 80053; 83605; 84145; 84484; 85025; 87040; 93005; 93010; 99284

== ENCOUNTER 2016-12-23 01:48 | Emergency (ER) ==
--- NOTE | 2016-12-23 01:54 | ED.PDOC ---
General ED Provider: Dr. SCOTTY HERNÁNDEZ Chief Complaint: Wound Check Stated Complaint: Nuha gallo she had a skin biopsy 2 days ago on the dorsum of left hand. Since the bandage came off today, it has been bleeding and pressure has not stopped it. Also report some mild pain. Time Seen by Physician: 01:45 Mode of Arrival: Wheelchair Information Source: Patient, Family Exam Limitations: No limitations Primary Care Provider: RANDY ZAPATA Seen Within Last 72 Hours for Same Complaint By: PCP (for biopsy surgery ) Nursing and Triage Documentation Reviewed and Agree: Yes Skin Complaint Exam - Laceration/Abrasion/Hand Complaint/Exam Location of Injury: Left, Hand Mechanism of Injury: Puncture (biopsy ) Onset/Duration: 3 days Symptoms Are: Still present Initial Severity: Moderate Current Severity: Moderate Aggravating: Movement Alleviating: Compression Associated Signs and Symptoms: Denies: Fever, Chills, Erythema, Numbness, Tingling Related History: Reports: Right hand dominant Hand Picture: 1 - 1 cm round wound bleeding. Differential Diagnoses: Laceration Review of Systems - Review Of Systems Constitutional: Reports: No symptoms Eyes: Reports: No symptoms Ears, Nose, Mouth, Throat: Reports: No symptoms Respiratory: Reports: No symptoms Cardiac: Reports: No symptoms GI: Reports: No symptoms : Reports: No symptoms Musculoskeletal: Reports: No symptoms Skin: Reports: Other (Left hand bleeding. ) Neurological: Reports: No symptoms Endocrine: Reports: No symptoms Hematologic/Lymphatic: Reports: No symptoms All Other Systems: Reviewed and Negative Past Medical History - Past Medical History Endocrine: Reports: Dyslipidemia Cardiovascular: Reports: CAD, Hypertension, Other (PAD s/p left thigh Fem-pop) Respiratory: Reports: COPD Hematological: Reports: Anemia Gastrointestinal: Reports: GERD Genitourinary: Reports: None Neuro/Psych: Reports: None Musculoskeletal: Reports: Arthritis Cancer: Reports: None - Surgical History General Surgical History: Reports: None, CABG (1999, ), Other (CEA) - Family History Family History: Reports: None - Social History Smoking Status: Former smoker Hx Substance Use: No Alcohol Screening: None Physical Exam - Physical Exam Appearance: No pain distress, Well-nourished, Thin Ill-appearing: Mild Pain Distress: Moderate Eyes: SO, EOMI, Conjunctiva clear ENT: Oropharynx normal Neck: Supple Respiratory: Airway patent, Breath sounds clear, Breath sounds equal, Respirations nonlabored Cardiovascular: RRR, Pulses normal, No rub, No murmur GI/: No Organomegaly Musculoskeletal: Normal strength, ROM intact, No edema, No calf tenderness Skin: Warm, Dry Neurological: Sensation intact, Motor intact, Alert, Oriented Psychiatric: Anxious Procedures - Additional Procedures Additional Procedures: Other (Left bleeding wound on the dorsum of hand controlled with use of surgiceal and wrapped with 2 x 2 and coband) Critical Care Note - Critical Care Note Total Time (mins): 0 Course - Course Orders, Labs, Meds: Orders Category Date Time Status Acetaminophen [Tylenol] MEDS 12/23/16 02:00 Discontinued 1,000 mg PO ONCE STA Medications Discontinued Medications Generic Name Dose Route Start Last Admin Trade Name Freq PRN Reason Stop Dose Admin Acetaminophen 1,000 mg 12/23/16 02:00 12/23/16 02:04 Tylenol PO 12/23/16 02:01 1,000 mg ONCE STA Administration Vital Signs: Temp Pulse Resp BP Pulse Ox 12/23/16 01:50 98.5 F 64 20 178/73 H 95 Departure - Departure Time of Disposition: 02:00 Disposition: HOME SELF-CARE Discharge Problem: Bleeding from wound Instructions: Acute Wound Care (ED) Condition: Fair Pt referred to PMD for follow-up: Yes Additional Instructions: Do not touch the dressing for at least 2 days Follow up with PCP in 2 days Allergies/Adverse Reactions: Allergies brimonidine [From Alphagan P] Adverse Reaction (Verified 12/23/16 01:59) Home Medications: Ambulatory Orders Ascorbic Acid [Vitamin C] 500 mg PO DAILY 01/12/13 Aspirin [Aspirin EC] 1 tab PO DAILY 01/12/13 Atorvastatin Calcium [Lipitor] 1 tab PO DAILY 01/12/13 Brimonidine Tartrate/Timolol [Combigan Eye Drops] 1 drop EACHEYE BID 01/12/13 Brinzolamide [Azopt] 1 drop EACHEYE TID 01/12/13 Carvedilol 6.25 mg PO BID 01/12/13 Cholecalciferol (Vitamin D3) [Vitamin D] 1 cap PO DAILY 01/12/13 Latanoprost [Xalatan] 1 drop EACHEYE BEDTIME 01/12/13 Montelukast Sodium [Singulair] 1 tab PO DAILY 01/12/13 Omeprazole Magnesium [Prilosec Otc] 1 tab PO DAILY 01/12/13 Vitamin E 1 cap PO DAILY 01/12/13 Clopidogrel Bisulfate [Plavix] 75 mg PO DAILY 02/28/16 Propylene Glycol/Peg 400 [Systane Ultra 0.4-0.3% Eye Drp] 1 drop EACHEYE PRN PRN 02/29/16 Atorvastatin Calcium 40 mg PO DAILY 08/23/16 Chlordiazepoxide HCl [Librium] 5 mg PO BID 08/23/16 Disposition Discussed With: Patient, Family
[2016-12-23 01:57] VITALS: BP 178/73; TEMP 98.5; BMI 19.5
[2016-12-23] MEDS ORDERED: TYLENOL PO STA (02:00)
== END 2016-12-23 02:19 | disposition home or self-care (01) ==
LOC: ED 01:48
DX: L76.22 Postprocedural hemorrhage of skin and subcutaneous tissue following other procedure (principal)
CPT/HCPCS: 99282

== ENCOUNTER 2018-09-14 02:50 | Emergency (ER) | payer OTHER ==
[2018-09-14] MEDS ORDERED: TRANDATE IVP STA (03:01)
[2018-09-14] MEDS ORDERED: SODIUM CHLORIDE 1,000 ML IV STA (03:01)
[2018-09-14 03:06] VITALS: BMI 20.7
--- NOTE | 2018-09-14 03:21 | ED.PDOC ---
General ED Provider: Dr. SCOTTY HERNÁNDEZ Chief Complaint: Dizziness Stated Complaint: Patient states she has been dizzy for the last few hours. Thought that she had some palpiations. Has been taking her home medications including lotrel and Coreg twice a day. Time Seen by Physician: 03:00 Mode of Arrival: Ambulance Information Source: Patient, EMT Primary Care Provider: RANDY ZAPATA Nursing and Triage Documentation Reviewed and Agree: Yes Does patient meet sepsis criteria?: No System Inflammatory Response Syndrome: Not Applicable Sepsis Protocol: For patient's 13 years and over: Temp is 96.8 and below OR 101 and greater Pulse >90 BPM Resp >20/minute Acutely Altered Mental Status Are patient's symptoms suggestive of a new infection, such as: -Pneumonia -Skin, Soft Tissue -Endocarditis -UTI -Bone, Joint Infection -Implantable Device -Acute Abdominal Infection -Wound Infection -Meningitis -Blood Stream Catheter Infection -Unknown Review of Systems - Review Of Systems Constitutional: Reports: No symptoms Eyes: Reports: No symptoms Ears, Nose, Mouth, Throat: Reports: No symptoms Respiratory: Reports: No symptoms Cardiac: Reports: Lightheadedness, Palpitations GI: Reports: No symptoms : Reports: No symptoms Musculoskeletal: Reports: No symptoms Skin: Reports: No symptoms Neurological: Reports: Anxiety Endocrine: Reports: No symptoms Hematologic/Lymphatic: Reports: No symptoms All Other Systems: Reviewed and Negative Past Medical History - Past Medical History Endocrine: Reports: Dyslipidemia Cardiovascular: Reports: CAD, Hypertension, Other (PAD s/p left thigh Fem-pop) Respiratory: Reports: COPD Hematological: Reports: Anemia Gastrointestinal: Reports: GERD Genitourinary: Reports: None Neuro/Psych: Reports: None Musculoskeletal: Reports: Arthritis Cancer: Reports: Skin Last Menstrual Period: post menopausal - Surgical History General Surgical History: Reports: CABG (1999, ), Stent Placement (on lower extremities ), Other (CEA) - Family History Family History: Reports: None - Social History Smoking Status: Former smoker Hx Substance Use: No Alcohol Screening: None - Immunizations Tetanus Shot up to Date: No Physical Exam - Physical Exam Appearance: Ill-appearing, Thin Ill-appearing: Moderate Pain Distress: None Eyes: SO, EOMI, Conjunctiva clear Neck: Supple Respiratory: Breath sounds diminished, Rhonchi (scartterd ) Musculoskeletal: Normal strength, ROM intact, No edema, No calf tenderness Skin: Warm, Dry, Normal color Neurological: Alert, Oriented Psychiatric: Anxious Interpretation - Radiology Interpretation Radiology Interpretation By: Radiologist Radiology Results: Positive (interstital Infiltrate, chronic changes.) Exam Interpreted: Portable CXR Radiology Interpretation By: Radiologist Radiology Results: No acute changes Exam Interpreted: CT Scan - EKG Interpretation Rate: Normal Rhythm: Sinus Ectopy: None Interpretation: no ischemic changes Re-Evaluation - Re-Evaluation Time of Re-Evaluation: 07:03 Status: Improved Vital Signs Stable: Yes (blood pressure improved. less dizzy. ) Critical Care Note - Critical Care Note Total Time (mins): 36 Course - Course Hematology/Chemistry: 09/14/18 03:22 09/14/18 03:22 Orders, Labs, Meds: Lab Review 09/14/18 09/14/18 03:22 03:22 WBC 5.91 RBC 3.79 L Hgb 10.5 L Hct 33.7 L MCV 88.9 MCH 27.7 MCHC 31.2 L RDW Coeff of Alyssa 16.9 H Plt Count 278 Immature Gran % (Auto) 0.2 Neut % (Auto) 55.9 Lymph % (Auto) 30.1 [place] % (Auto) 10.7 H Eos % (Auto) 2.4 Baso % (Auto) 0.7 Immature Gran # (Auto) 0.0 Neut # (Auto) 3.3 Lymph # (Auto) 1.8 [place] # (Auto) 0.6 Eos # (Auto) 0.1 Baso # (Auto) 0.0 Sodium 140.0 Potassium 4.06 Chloride 103.9 Carbon Dioxide 28.5 Anion Gap 11.66 BUN 20.9 H Creatinine 0.93 Estimated GFR (MDRD) 57.00 BUN/Creatinine Ratio 22.47 Glucose 110.8 H Calcium 8.90 Total Bilirubin 0.42 AST 32.1 ALT 19.0 Alkaline Phosphatase 82.0 Total Creatine Kinase 26.6 L Troponin I < 0.012 Total Protein 7.23 Albumin 3.77 Globulin 3.46 Albumin/Globulin Ratio 1.08 Orders Category Date Time Status EKG-(ED ONLY) Stat CARDIO 09/14/18 03:01 Completed ED CERTIFIED NURSES AIDE APPLIED .ONCE EMERGENCY 09/14/18 03:01 Active ED IV/MEDIPORT/POWERPORT .ONCE EMERGENCY 09/14/18 03:01 Active Orthostatic [ED ORTHOSTATIC VITAL SIGNS] .ONCE EMERGENCY 09/14/18 03:22 Active CBC W/ AUTO DIFF Stat LAB 09/14/18 03:22 Completed COMPREHENSIVE METABOLIC PANEL Stat LAB 09/14/18 03:22 Completed CREATINE KINASE Stat LAB 09/14/18 03:22 Completed TROPONIN I Stat LAB 09/14/18 03:22 Completed 0.9 % Sodium Chloride [Saline Flush] MEDS 09/14/18 03:01 Active 1 syr IVF PRN PRN Labetalol HCl [Trandate] MEDS 09/14/18 03:01 Discontinued 20 mg IVP ONCE STA Sodium Chloride 0.9% [Sodium Chloride] 1,000 ml MEDS 09/14/18 03:01 Active IV 125 mls/hr CHEST, 1V AP ONLY Stat RADS 09/14/18 03:[address] HEAD W/O CONTRAST Stat RADS 09/14/18 03:01 Completed Medications Generic Name Dose Route Start Last Admin Trade Name Freq PRN Reason Stop Dose Admin Sodium Chloride 1,000 mls @ 125 mls/hr 09/14/18 03:01 09/14/18 03:28 Sodium Chloride IV 09/14/18 11:00 125 mls/hr .Q8H STA Administration Sodium Chloride 1 syr 09/14/18 03:01 09/14/18 03:27 Saline Flush IVF 1 syr PRN PRN Administration To flush IV Discontinued Medications Generic Name Dose Route Start Last Admin Trade Name Freq PRN Reason Stop Dose Admin Labetalol HCl 20 mg 09/14/18 03:01 09/14/18 03:28 Trandate IVP 09/14/18 03:02 20 mg ONCE STA Administration Vital Signs: Temp Pulse Resp BP Pulse Ox 09/14/18 06:29 97.5 F L 82 16 191/67 H 97 09/14/18 04:00 78 139/68 09/14/18 02:52 97.4 F L 75 20 220/88 H 96 Departure - Departure Time of Disposition: 07:01 Disposition: HOME SELF-CARE Discharge Problem: Dizziness, Hypovolemia, Malignant hypertension Instructions: Lightheadedness (ED), Dizziness (ED), Hypertension (ED) Condition: Stable Pt referred to PMD for follow-up: Yes IPMP verified?: No Additional Instructions: Push fluids Follow up with PCP in 2-3 days Allergies/Adverse Reactions: Allergies brimonidine [From Alphagan P] Adverse Reaction (Verified 09/14/18 03:40) Home Medications: Ambulatory Orders Aspirin [Aspirin EC] 1 tab PO DAILY 01/12/13 Brimonidine Tartrate/Timolol [Combigan Eye Drops] 1 drop EACHEYE BID 01/12/13 Brinzolamide [Azopt] 1 drop EACHEYE TID 01/12/13 Carvedilol 6.25 mg PO BID 01/12/13 Cholecalciferol (Vitamin D3) [Vitamin D] 1 cap PO DAILY 01/12/13 Latanoprost [Xalatan] 1 drop EACHEYE BEDTIME 01/12/13 Montelukast Sodium [Singulair] 10 mg PO DAILY 01/12/13 Omeprazole Magnesium [Prilosec Otc] 20 mg PO DAILY PRN 01/12/13 Vitamin E 400 unit PO DAILY 01/12/13 Clopidogrel Bisulfate [Plavix] 75 mg PO DAILY 02/28/16 Propylene Glycol/Peg 400 [Systane Ultra 0.4-0.3% Eye Drp] 1 drop EACHEYE PRN PRN 02/29/16 Atorvastatin Calcium 40 mg PO DAILY 08/23/16 Chlordiazepoxide HCl [Librium] 5 mg PO BID 08/23/16 Beta-Carotene(A)-Vits C,E/Mins [Vision Vitamins] 1 tab PO DAILY 09/14/18
--- NOTE | 2018-09-14 04:25 | CT ---
EXAM: CT head without contrast 09/14/2018. Sagittal and coronal reformatted images obtained HISTORY: Dizziness COMPARISON: 08/23/2016 FINDINGS: There is no evidence of intracranial hemorrhage. The midline is maintained. There is no h ydrocephalus. Generalized atrophy. Chronic small vessel ischemic changes. No cerebellar tonsillar ectopia. Evaluation of the calvarium shows no fracture. The mastoid air cells are normally pneumati zed. IMPRESSION: No acute intracranial abnormality.
--- NOTE | 2018-09-14 04:40 | DI ---
EXAM: Chest, single view 09/14/2018 HISTORY: Dizziness COMPARISON: 08/23/2016 FINDINGS / IMPRESSION: Emphysematous configuration of the chest. Postoperative changes of the media stinum. Atherosclerotic vascular disease. Interstitial infiltrate within both lungs. This may relate to areas of chronic atelectasis and scarr ing. Bronchitis/bronchiolitis not excluded. Blunting of the lateral costophrenic angles. Trace pleural effusions not excluded. This could also be due to atelectasis/scarring. No pneumothorax.
[2018-09-14 06:29] VITALS: BP 191/67; TEMP 97.5
== END 2018-09-14 08:15 | disposition home or self-care (01) ==
LOC: ED 02:50
DX: R42 Dizziness and giddiness (principal); E86.1 Hypovolemia; I10 Essential (primary) hypertension; I25.810 Atherosclerosis of coronary artery bypass graft(s) without angina pectoris; D64.9 Anemia, unspecified; E78.5 Hyperlipidemia, unspecified; Z79.899 Other long term (current) drug therapy; Z95.5 Presence of coronary angioplasty implant and graft; J44.9 Chronic obstructive pulmonary disease, unspecified
CPT/HCPCS: 36415; 80053; 81001; 82550; 84484; 85025; 93005; 93010; 96361; 96374; 99283

== ENCOUNTER 2019-11-09 09:48 | Inpatient (IN) ==
[2019-11-09 11:10] LABS: ABG BASE EXCESS 2 (-2.0-2.0); ABG HCO3 26.8 (22.0-26.0); ABG PCO2 42.1 mmHg (35-45); ABG PH 7.42 (7.35-7.45); ABG TCO2 28 (22.0-28.0)
--- NOTE | 2019-11-09 11:23 | ED.PDOC ---
General ED Provider: Dr. MEI SANCHEZ MD Chief Complaint: Shortness of Air Stated Complaint: shortness of breath Time Seen by Physician: 11:18 Mode of Arrival: Wheelchair Information Source: Patient and Family Primary Care Provider: RANDY ZAPATA Nursing and Triage Documentation Reviewed and Agree: Yes Does patient meet sepsis criteria?: No System Inflammatory Response Syndrome: Not Applicable Sepsis Protocol: For patient's 13 years and over: Temp is 96.8 and below OR 101 and greater Pulse >90 BPM Resp >20/minute Acutely Altered Mental Status Are patient's symptoms suggestive of a new infection, such as: -Pneumonia -Skin, Soft Tissue -Endocarditis -UTI -Bone, Joint Infection -Implantable Device -Acute Abdominal Infection -Wound Infection -Meningitis -Blood Stream Catheter Infection -Unknown Respiratory Complaint Exam Shortness of Air Complaint/Exam Onset/Duration: 3-4 days Symptoms Are: Worse Timing: Intermittent Initial Severity: Mild Current Severity: Moderate Character: Reports Dyspnea at rest Aggravating: Denies None (worse in the morning) Alleviating: Reports None Associated Signs and Symptoms: Reports Cough; Denies Fever, Chills, Diaphoresis and Nasal congestion Related History: Denies Similar episode and Obesity History of Healthcare-Acquired Pneumonia: No Pulmonary Embolism Risk Factors: Reports None Cardiac Risk Factors: Reports None Pseudomonas Risk Factors: Reports None Tuberculosis Risk Factors: Reports None Home Oxygen Use: No Respiratory Distress: None Stridor Present: No Tracheal Deviation: No Subcutaneous Emphysema: No Accessory Muscle Use: No Retractions: Not Present Diminished Breath Sounds: No Prolonged Expiratory Phase: No Unable to Speak Full Sentences: No Leg Swelling: No Review of Systems Review Of Systems Constitutional: Reports No symptoms All Other Systems: Reviewed and Negative [facility] Medical History (Updated 11/09/19 @ 14:49 by FESTUS MCKEON RN) COPD (chronic obstructive pulmonary disease) Coronary artery disease Degenerative disk disease Depression Dyslipidemia GERD (gastroesophageal reflux disease) Glaucoma Hiatal hernia Hypertension Hypertension Iron deficiency anemia Osteoarthritis Peripheral artery disease Family History (Updated 11/09/19 @ 14:49 by FESTUS MCKEON RN) Mother Heart attack UNCLE Heart attack BROTHER Heart problem Social History Smoking and tobacco status: Former smoker Female Reproductive History Menstrual Hx Hysterectomy: No Hx Tubal Ligation: No Physical Exam Physical Exam Appearance: Reports Well-appearing Interpretation EKG Interpretation Time of EKG #1: 10:50 Rate: Normal (68) Rhythm: Sinus Ectopy: None [place]: Right ST Segment: Other (non-specific ST abnormality) Interpretation: nothing acute Critical Care Note Critical Care Note Total Time (mins): 0 Course Course Hematology/Chemistry: 11/10/19 04:50 11/10/19 04:50 Orders, Labs, Meds: Lab Review 11/09/19 11/09/19 11/09/19 10:30 10:30 10:30 WBC 6.66 RBC 3.19 L Hgb 9.0 L Hct 30.1 L MCV 94.4 MCH 28.2 MCHC 29.9 L RDW Coeff of Alyssa 15.6 H Plt Count 390 Immature Gran % (Auto) 0.3 Neut % (Auto) 72.9 Lymph % (Auto) 15.5 [place] % (Auto) 8.6 Eos % (Auto) 1.8 Baso % (Auto) 0.9 Neut # (Auto) 4.9 Lymph # (Auto) 1.0 [place] # (Auto) 0.6 Eos # (Auto) 0.1 Baso # (Auto) 0.1 Immature Gran # (Auto) 0.0 ESR Puncture Site O2 Saturation ABG pH ABG pCO2 ABG pO2 ABG HCO3 ABG Total CO2 ABG Base Excess John Test O2 Delivery Device FiO2 % Sodium 138.2 Potassium 3.71 Chloride 102.3 Carbon Dioxide 32.9 H Anion Gap 6.71 BUN 10.5 Creatinine 0.72 Estimated GFR (MDRD) 76.00 BUN/Creatinine Ratio 14.58 Glucose 109.3 H Lactic Acid Calcium 9.06 Magnesium 2.07 Total Bilirubin 0.19 L AST 42.7 H ALT 15.4 Alkaline Phosphatase 80.6 Total Creatine Kinase 32.1 Troponin I 0.015 NT-Pro-B Natriuret Pep Total Protein 6.97 Albumin 3.64 Globulin 3.33 Albumin/Globulin Ratio 1.09 Procalcitonin Urine Color Urine Clarity Urine pH Ur Specific [place] Urine Protein Urine Glucose (UA) Urine Ketones Urine Blood Urine Nitrite Urine Bilirubin Urine Urobilinogen Ur Leukocyte Esterase Urine Microscopic WBC Ur Squamous Epith Cells Influ A Molecular Assay Negative by naat Influ B Molecular Assay Negative by naat RSV Antigen Negative by naat 11/09/19 11/09/19 11/09/19 10:30 10:30 10:30 WBC RBC Hgb Hct MCV MCH MCHC RDW Coeff of Alyssa Plt Count Immature Gran % (Auto) Neut % (Auto) Lymph % (Auto) [place] % (Auto) Eos % (Auto) Baso % (Auto) Neut # (Auto) Lymph # (Auto) [place] # (Auto) Eos # (Auto) Baso # (Auto) Immature Gran # (Auto) ESR 22 H Puncture Site O2 Saturation ABG pH ABG pCO2 ABG pO2 ABG HCO3 ABG Total CO2 ABG Base Excess John Test O2 Delivery Device FiO2 % Sodium Potassium Chloride Carbon Dioxide Anion Gap BUN Creatinine Estimated GFR (MDRD) BUN/Creatinine Ratio Glucose Lactic Acid 1.46 Calcium Magnesium Total Bilirubin AST ALT Alkaline Phosphatase Total Creatine Kinase Troponin I NT-Pro-B Natriuret Pep Total Protein Albumin Globulin Albumin/Globulin Ratio Procalcitonin < 0.05 Urine Color Urine Clarity Urine pH Ur Specific [place] Urine Protein Urine Glucose (UA) Urine Ketones Urine Blood Urine Nitrite Urine Bilirubin Urine Urobilinogen Ur Leukocyte Esterase Urine Microscopic WBC Ur Squamous Epith Cells Influ A Molecular Assay Influ B Molecular Assay RSV Antigen 11/09/19 11/09/19 11/09/19 10:30 11:09 12:25 WBC RBC Hgb Hct MCV MCH MCHC RDW Coeff of Alyssa Plt Count Immature Gran % (Auto) Neut % (Auto) Lymph % (Auto) [place] % (Auto) Eos % (Auto) Baso % (Auto) Neut # (Auto) Lymph # (Auto) [place] # (Auto) Eos # (Auto) Baso # (Auto) Immature Gran # (Auto) ESR Puncture Site R rad O2 Saturation 93.0 L ABG pH 7.42 ABG pCO2 42.1 ABG pO2 68.0 L ABG HCO3 26.8 H ABG Total CO2 28 ABG Base Excess 2 John Test + O2 Delivery Device Ra FiO2 % 21.0 Sodium Potassium Chloride Carbon Dioxide Anion Gap BUN Creatinine Estimated GFR (MDRD) BUN/Creatinine Ratio Glucose Lactic Acid Calcium Magnesium Total Bilirubin AST ALT Alkaline Phosphatase Total Creatine Kinase Troponin I NT-Pro-B Natriuret Pep 1180.000 H Total Protein Albumin Globulin Albumin/Globulin Ratio Procalcitonin Urine Color Yellow Urine Clarity Clear Urine pH 6.0 Ur Specific [place] 1.020 Urine Protein Negative Urine Glucose (UA) Negative Urine Ketones Negative Urine Blood Negative Urine Nitrite Negative Urine Bilirubin Negative Urine Urobilinogen 0.2 Ur Leukocyte Esterase 1+ H Urine Microscopic WBC 2-5 Ur Squamous Epith Cells 0-2 Influ A Molecular Assay Influ B Molecular Assay RSV Antigen Orders Category Date Time Status ABG DRAW REQUEST Stat CARDIO 11/09/19 11:08 Completed EKG-(ED ONLY) Stat CARDIO 11/09/19 11:07 Completed ABG Stat LAB 11/09/19 11:07 Ordered ABG Stat LAB 11/09/19 11:09 Completed BLOOD CULTURE (ED ONLY) Stat LAB 11/09/19 10:30 Stop Req C-REACTIVE PROTEIN Stat LAB 11/09/19 10:30 Received CBC W/ AUTO DIFF Stat LAB 11/09/19 10:30 Completed COMPREHENSIVE METABOLIC PANEL Stat LAB 11/09/19 10:30 Completed COVID19, PCR IDPH Stat LAB 11/09/19 10:30 Received CREATINE KINASE Stat LAB 11/09/19 10:30 Completed ESR Stat LAB 11/09/19 10:30 Completed FLU A/B MOLECULAR Stat LAB 11/09/19 10:30 Completed LACTIC ACID Stat LAB 11/09/19 10:30 Completed MAGNESIUM Stat LAB 11/09/19 10:30 Completed MOLECULAR GROUP A STREP Stat LAB 11/09/19 10:30 Completed NT-PROBNP Stat LAB 11/09/19 10:30 Completed PROCALCITONIN Stat LAB 11/09/19 10:30 Completed RSV Stat LAB 11/09/19 10:30 Completed TROPONIN I Stat LAB 11/09/19 10:30 Completed CHEST, 1V AP ONLY Stat RADS 11/09/19 11:07 Completed Medications Generic Name Dose Route Start Last Admin Trade Name Freq PRN Reason Stop Dose Admin Aspirin 81 mg 11/10/19 08:30 Aspirin Ec PO DAILYWM [facility] Atorvastatin Calcium 40 mg 11/10/19 09:00 Lipitor PO DAILY [facility] Azithromycin 500 mg 11/09/19 15:03 11/09/19 15:23 Zithromax PO 11/11/19 15:02 500 mg DAILY KARTIK Administration Carvedilol 12.5 mg 11/09/19 17:00 11/09/19 17:27 Coreg PO 12.5 mg BIDWM KARTIK Administration Chlordiazepoxide HCl 5 mg 11/09/19 21:00 11/09/19 20:16 Librium PO 5 mg BID KARTIK Administration Cholecalciferol 1,000 unit 11/10/19 09:00 Vitamin D PO DAILY KARTIK Clopidogrel Bisulfate 75 mg 11/10/19 09:00 Plavix PO DAILY KARTIK Dexamethasone Sodium Phosphate 4 mg 11/10/19 09:00 Decadron 4 Mg/Ml Sdv IM DAILY KARTIK Ferrous Sulfate 324 mg 11/10/19 09:00 Ferrous Sulfate PO DAILY KARTIK Sodium Chloride 1,000 mls @ 83 mls/hr 11/09/19 14:00 11/10/19 04:18 Sodium Chloride IV 83 mls/hr .Q12H3M KARTIK Administration CEFTRIAXONE/D5W 1 GM PREMIX 1 gm in 50 mls @ 75 mls/hr 11/10/19 09:00 Rocephin 1 Gm/50 Ml D5w IV 11/13/19 08:59 DAILY KARTIK Latanoprost 1 drop 11/09/19 21:00 11/09/19 20:16 Xalatan EACHEYE 1 drop BEDTIME KARTIK Administration Montelukast Sodium 10 mg 11/10/19 09:00 Singulair PO DAILY KARTIK Non-Formulary Medication 1 drop 11/09/19 17:00 11/09/19 17:37 Brimonidine-Timolol [Combigan] EACHEYE Not Given 0800,1700 KARTIK Non-Formulary Medication 1 drop 11/09/19 17:00 11/09/19 17:37 Brinzolamide [Azopt] EACHEYE Not Given 0800,1200,1700 KARTIK Non-Formulary Medication 1 drop 11/09/19 15:56 Peg 400-Propylene Glycol [Systane Ultra] EACHEYE PRN PRN dry eyes Non-Formulary Medication 1 tab 11/10/19 09:00 Vitamin A-Vitamin C-Vit E-Min [Vision] PO DAILY KARTIK Omeprazole 20 mg 11/09/19 16:21 Prilosec PO QDAC PRN HEARTBURN Vitamin E 400 unit 11/10/19 09:00 Vitamin E PO DAILY KARTIK Discontinued Medications Generic Name Dose Route Start Last Admin Trade Name Freq PRN Reason Stop Dose Admin Dexamethasone Sodium Phosphate 4 mg 11/09/19 13:40 11/09/19 13:54 Decadron 4 Mg/Ml Sdv IM 11/09/19 13:41 4 mg ONCE STA Administration CEFTRIAXONE/D5W 1 GM PREMIX 1 gm in 50 mls @ 75 mls/hr 11/09/19 13:38 11/09/19 13:54 Rocephin 1 Gm/50 Ml D5w IV 11/09/19 14:17 75 mls/hr ONCE STA Administration Labs/ECG/Radiographs posted. Patient's PCP is Dr Zapata. The workup was relayed to her PCP, who admitted her (full) for pneumonia. She was in good condition when transported from the ED to the floor. Vital Signs: Temp Pulse Resp BP Pulse Ox 11/09/19 09:49 98.1 F 81 24 177/90 H 96 Discharge Plan Discharge Patient Disposition: ADMITTED INPATIENT Discharge Problem: Pneumonia ED Provider: MEI SANCHEZ Condition: Stable
[2019-11-09 11:25] LABS: BASOPHILS # (AUTO) 0.1 K/uL (0-0.2); BASOPHILS % (AUTO) 0.9 % (0.0-3.0); EOSINOPHILS # (AUTO) 0.1 K/ul (0.0-0.7); EOSINOPHILS % (AUTO) 1.8 % (0.0-7.0); HEMATOCRIT 30.1 % (37.0-47.0); IMMATURE GRANULOCYTE % (AUTO) 0.3 % (0.0-5.0); LYMPHOCYTES % (AUTO) 15.5 (10.0-50.0); MEAN CORPUSCULAR HGB CONC 29.9 (31.8-35.4); MEAN CORPUSCULAR VOLUME 94.4 fl (81.0-99.0); MONOCYTES # (AUTO) 0.6 K/uL (0.4-2.0); MONOCYTES % (AUTO) 8.6 (0-10); NEUTROPHILS # (AUTO) 4.9 K/ul (2.0-6.9); NEUTROPHILS % (AUTO) 72.9 % (42.2-75.2); PLATELET COUNT 390 10^3/uL (140-440); RDW COEFFICIENT OF VARIATION 15.6 % (11.6-14.8); RED BLOOD COUNT 3.19 10^6/ul (4.20-5.40); WHITE BLOOD COUNT 6.66 K/ul (4.6-10.2)
[2019-11-09 11:28] LABS: ALANINE AMINOTRANSFERASE 15.4 U/L (0-35); ALBUMIN 3.64 g/dL (3.5-5.0); ALKALINE PHOSPHATASE 80.6 U/L (53-141); ASPARTATE AMINO TRANSFERASE 42.7 U/L (14-36); BILIRUBIN,TOTAL 0.19 mg/dL (0.2-1.3); BLOOD UREA NITROGEN 10.5 mg/dL (7-17); CALCIUM 9.06 mg/dL (8.4-10.2); CARBON DIOXIDE 32.9 mmol/L (22-30.0); CHLORIDE 102.3 mmol/L (98-107); CREATINE KINASE 32.1 U/L (30-135); CREATININE 0.72 mg/dL (0.60-1.30); GLUCOSE 109.3 mg/dL (74-106); MAGNESIUM 2.07 mg/dL (1.6-2.3); SODIUM 138.2 mmol/L (134.5-145); TOTAL PROTEIN 6.97 g/dL (6.3-8.2)
--- NOTE | 2019-11-09 11:36 | DI ---
EXAM: Chest one view, frontal view only. HISTORY: Shortness of breath. COMPARISON: 09/25/2018, 09/14/2018 the. FINDINGS: Post CABG changes noted. The heart size is normal. Peribronchial thickening noted with r eticulonodular opacities throughout both lungs, most notably in the right upper and left lower lungs which appears similar to the 09/14/2018 examination. No pleural effusion or pneumothorax identified. No acute osseous abnormalities seen. IMPRESSION: Stable appearance of the chest suggesting chronic airways inflammation. Difficult to exclude superim posed pneumonia.
[2019-11-09 11:59] LABS: ERYTHROCYTE SEDIMENTATION RATE 22 mm/hr (0-20)
[2019-11-09 12:08] LABS: MOLECULAR FLU A NEGATIVE BY NAAT (NEGATIVE); MOLECULAR FLU B NEGATIVE BY NAAT (NEGATIVE); RSV MOLECULAR NEGATIVE BY NAAT (NEGATIVE)
[2019-11-09] MEDS ORDERED: ROCEPHIN 1 GM/50 ML D5W 1 GM/50 ML BAG IV STA (13:38)
[2019-11-09] MEDS ORDERED: DECADRON 4 MG/ML SDV IM STA (13:40)
[2019-11-09 15:01] VITALS: BMI 17.6
[2019-11-09] MEDS: ZITHROMAX PO SCH (15:23)
[2019-11-09] MEDS: SODIUM CHLORIDE 1,000 ML IV SCH (15:25)
[2019-11-09] MEDS ORDERED: NON-FORMULARY MEDICATION (Omeprazole Magnesium [Prilosec Otc] 20 MG) PO PRN (15:56)
[2019-11-09] MEDS ORDERED: PRILOSEC PO PRN (16:21)
[2019-11-09] MEDS: COREG PO SCH (17:27)
[2019-11-09] MEDS: NON-FORMULARY MEDICATION (Brimonidine-Timolol [Combigan] 1 DROP) EACHEYE SCH (17:37)
[2019-11-09] MEDS: BRINZOLAMIDE EACHEYE SCH (17:37)
[2019-11-09 17:44] LABS: BILIRUBIN,URINE Negative (NEGATIVE); CLARITY,URINE Clear (CLEAR); COLOR,URINE Yellow (YELLOW); GLUCOSE, URINE (UA) Negative (NEGATIVE); KETONES,URINE Negative (NEGATIVE); LEUKOCYTE ESTERASE ,URINE 1+ (NEGATIVE); NITRITE,URINE Negative (NEGATIVE); URINE, BLOOD Negative (NEGATIVE); UROBILINOGEN,URINE 0.2 (0.2)
[2019-11-09 17:47] LABS: SQUAMOUS EPITHELIAL CELL,UR 0-2 (0-5)
[2019-11-09] MEDS: LIBRIUM PO SCH (20:16)
[2019-11-09] MEDS ORDERED: COREG PO SCH (21:00)
[2019-11-09] MEDS ORDERED: XALATAN EACHEYE SCH (21:00)
[2019-11-10] MEDS: SODIUM CHLORIDE 1,000 ML IV SCH (04:18)
[2019-11-10 04:59] LABS: HEMATOCRIT 27.2 % (37.0-47.0); MEAN CORPUSCULAR HGB CONC 29.4 (31.8-35.4); MEAN CORPUSCULAR VOLUME 95.1 fl (81.0-99.0); PLATELET COUNT 321 10^3/uL (140-440); RDW COEFFICIENT OF VARIATION 15.9 % (11.6-14.8); RED BLOOD COUNT 2.86 10^6/ul (4.20-5.40); WHITE BLOOD COUNT 6.41 K/ul (4.6-10.2)
[2019-11-10 05:10] LABS: ALANINE AMINOTRANSFERASE 13.4 U/L (0-35); ALBUMIN 3.05 g/dL (3.5-5.0); ALKALINE PHOSPHATASE 70.1 U/L (53-141); ASPARTATE AMINO TRANSFERASE 39.5 U/L (14-36); BILIRUBIN,TOTAL 0.14 mg/dL (0.2-1.3); BLOOD UREA NITROGEN 16.2 mg/dL (7-17); CALCIUM 8.41 mg/dL (8.4-10.2); CARBON DIOXIDE 32.1 mmol/L (22-30.0); CHLORIDE 105.3 mmol/L (98-107); CREATININE 0.71 mg/dL (0.60-1.30); GLUCOSE 120.4 mg/dL (74-106); SODIUM 137.8 mmol/L (134.5-145); TOTAL PROTEIN 6.03 g/dL (6.3-8.2)
[2019-11-10 05:11] LABS: ANISOCYTOSIS NOT PRESENT (NOT PRESENT)
[2019-11-10 05:13] LABS: HYPOCHROMASIA 1+ (NOT PRESENT); MICROCYTOSIS 1+ (NOT PRESENT)
[2019-11-10] MEDS: PEG PROPYLENE GLYCOL EACHEYE PRN ×2 (07:45→16:58)
--- NOTE | 2019-11-10 08:02 | HP ---
DATE OF SERVICE: 11/09/19 HISTORY OF PRESENT ILLNESS: 89-year-old white female who presented to the emergency room with shortness and breath and cough. PAST MEDICAL HISTORY: Generalized weakness Dizziness Anemia Hypertension Allergic rhinitis Diabetes mellitus Type 2 (last A1C was 5.5 on 07/14) Coronary artery disease Peripheral arterial disease Cervical radiculopathy COPD Dyslipidemia Forgetfulness Glaucoma - sees Dr. Hernandez Polyarthritis History of pulmonary nodules, seeing Dr. Brown Chronic anemia - she states she is unable to take iron PAST SURGICAL HISTORY: CABG, status post FEM/POP bypass by Dr. Capone Bilateral carotid endarterectomy, 1999 REVIEW OF SYSTEMS: CONSTITUTIONAL: Weakness. No night sweats. No fatigue, malaise, lethargy. No fever or chills. HEENT: Eyes: No visual changes. No eye pain. No eye discharge. ENT: No runny nose. No epistaxis. No sinus pain. No sore throat. No odynophagia. No ear pain. No congestion. Pallor positive. RESPIRATORY: Cough, shortness of breath. No hemoptysis. CARDIOVASCULAR: No angina symptoms. No CHF symptoms. No atypical chest pain for CAD. No palpitations. No PND. No orthopnea. GASTROINTESTINAL: No abdominal pain. No nausea or vomiting. No diarrhea or constipation. No hematemesis. No hematochezia. GENITOURINARY: No urgency. No frequency. No dysuria. No hematuria. No obstructive symptoms. No discharge. No pain. No significant abnormal bleeding. MUSCULOSKELETAL: No musculoskeletal pain. No joint swelling. No arthritis. NEUROLOGICAL: No headache. No neck pain. No syncope. No seizures. No dizziness. PSYCHIATRIC: Not anxious. No depression. No suicidal thoughts. No homicidal thoughts. SKIN: No rash. No lesions. No wounds. ENDOCRINE: No unexplained weight loss. No weight gain. HEMATOLOGIC/LYMPHATIC: Anemia. No purpura. No petechiae. No prolonged or excessive bleeding. No palpable lymph nodes. PERSONAL/FAMILY/SOCIAL HISTORY: She is , lives at home by herself however she lives close to both of her sons which visit her on a daily basis. She is a nonsmoker. No alcohol or illicit drug use. MEDICATIONS: (Home) Brinzolamide (Azopt) one drop ophthalmic Omeprazole 20 mg p.o. daily p.r.n. Cholecalciferol one cap p.o. daily Vitamin E 400 unit p.o. daily Aspirin 81 mg one p.o. daily Carvedilol 12.5 mg p.o. b.i.d. Montelukast 10 mg p.o. daily Latanoprost one drop ophthalmic bedtime Clopidogrel 75 mg p.o. daily Peg 400-propylene glycol one drop ophthalmic eye Chlordiazepoxide 5 mg p.o. b.i.d. Atorvastatin 40 mg p.o. daily Vitamin A-Vitamin C-Vitamin E-min one tablet p.o. daily Ferrous Sulfate 325 mg p.o. daily ALLERGIES: BRIMONIDINE (METHAPLAMED) PHYSICAL EXAMINATION: VITAL SIGNS: Temperature 98.1, heart rate 81, respirations 24, BP 177/90, pulse ox 96% on 2L. HEENT: Pallor. Head normocephalic, atraumatic. Eyes: Extraocular muscles are intact. Pupils are equal, round and reactive to light and accommodation. Ears: No lesions. Nose appeared normal. Throat: No exudate or erythema. NECK: Supple. No JVD, no carotid bruit. No lymphadenopathy or thyromegaly. LUNGS: Diminished breath sounds bilaterally. Clear to auscultation. Percussion note normal. Chest symmetrical. HEART: S1, S2, no S3. No murmur. No cyanosis or clubbing. No ascites. Pulses: Dorsalis pedis and posterior tibial pulses +1 to +2 bilaterally. ABDOMEN: Soft. Nontender. Bowel sounds active. No CVA tenderness. No mass felt. EXTREMITIES: No leg edema. Full range of motion of all extremities, equal. NEUROLOGIC: No focal deficit. Cranial nerves II through XII are grossly intact. No headache, no double vision or headache. SKIN: Not dry. Intact. Turgor - normal. LYMPHATIC: No palpable lymph nodes/no lymphedema. MUSCULOSKELETAL: Normal joints with no swelling. Muscle tone is normal. IMAGING/LABS: Chest x-ray shows stable appearance of the chest suggesting chronic airway inflammation, possible superimposed pneumonia, reticulonodular opacities throughout both lungs, most notably in right upper and left lower. White count 6.66, hemoglobin 9.0, hematocrit 30.1, platelets 390. ABGs on room air: pH 7.42, pc02 42, p02 68, base excess of 2, bicarb 26.8, TC02 28, 02 sat 93. Sodium 138, potassium 3.7, BUN 10.5, creatinine 0.72. Covid test is pending. ASSESSMENT: 1. SHORTNESS OF BREATH 2. BILATERAL PNEUMONIA 3. CHRONIC ANEMIA 4. CORONARY ARTERY DISEASE 5. SEVERE PERIPHERAL ARTERIAL DISEASE 6. GENERALIZED WEAKNESS. PLAN: 1. We will admit. 2. Routine telemetry orders. 3. Covid test is pending. The patient is in isolation until results are received. 4. Oxygen at 1 to 2L as needed per nasal cannula. 5. Zithromax 500 mg p.o. daily for three days. 6. 1 cc Decadron IM today and then daily. 7. CBC, CMP daily. 8. Rocephin 1 gm IV daily. 9. Regular diet. 10. Anemia profile. 11. Normal Saline at 75 cc/hr. 12. Albuterol inhaler two puffs t.i.d. 13. Continue all home medications. 14. Will follow closely. TIME SPENT: More than 70 minutes. MTDD
--- NOTE | 2019-11-10 08:04 | PCM.PROG ---
Attending Provider: ATTENDING PROVIDER: Dr. RANDY ZAPATA This patient is seen with Melody Deleon, Nurse Practitioner. DATE OF SERVICE: 11/10/19 SUBJECTIVE: This 89 year old /WHITE F was hospitalized 11/09/19. The patient is resting comfortably in bed. She has been up with assist of one. She has con tinued to complain of shortness of breath and cough with productive yellow sputum. COVID test is pending. No fevers. REVIEW OF SYSTEMS: CONSTITUTIONAL: No night sweats. No fatigue, malaise, lethargy. No fever or chills. Weakness. HEENT: Eyes: No visual changes. No eye pain. No eye discharge. ENT: No runny nose. No epistaxis. No sinus pain. No odynophagia. No congestion. RESPIRATORY: Cough, no congestion. No hemoptysis. Shortness of breath. CARDIOVASCULAR: No angina symptoms. No CHF symptoms. No atypical chest pain for CAD. No palpitations. No orthopnea.. GASTROINTESTINAL: No abdominal pain. No nausea or vomiting. No diarrhea or constipation. No hematemesis. No hematochezia. GENITOURINARY: No urgency. No frequency. No dysuria. No hematuria. No obstructive symptoms. No discharge. No pain. No significant abnormal bleeding. MUSCULOSKELETAL: No musculoskeletal pain; no joint swelling. NEUROLOGICAL: Awake, alert, oriented to time, place and person. No headache. No neck pain. No syncope. No seizures. No dizziness. PSYCHIATRIC: Not anxious. No depression. No suicidal thoughts. No homicidal thoughts. SKIN: No rash. No lesions. No wounds. ENDOCRINE: No unexplained weight loss. No weight gain. HEMATOLOGIC/LYMPHATIC: No anemia. No purpura. No petechiae. No prolonged or excessive bleeding. No palpable lymph nodes. PHYSICAL EXAMINATION: GENERAL: The patient is awake, alert and oriented, sitting in bed in no distress. VITAL SIGNS: Temperature 97.6 F, Pulse 69, Respiratory Rate 20, BP 136/52, Pulse Ox 100% HEENT: Head normocephalic, atraumatic. Eyes: Extraocular muscles are intact. Pupils are equal, round and reactive to light and accommodation. Ears: No lesions. Nose appeared normal. Throat: No exudate or erythema. NECK: Supple. No JVD, no carotid bruit. No lymphadenopathy or thyromegaly. LUNGS: Diminished breath sounds, inspiratory rales. Clear to auscultation. Percussion note normal. Chest symmetrical. HEART: S1, S2, no S3. No murmurs. No cyanosis or clubbing. No ascites. Pulses: Dorsalis pedis and posterior tibial pulses +1 to +2 both sides. ABDOMEN: Soft. Non-tender. Bowel sounds active. No CVA tenderness. No mass felt. EXTREMITIES: No edema. Full range of motion of all extremities, equal. NEUROLOGIC: No focal deficit. Cranial nerves II through XII are grossly intact. No headache, no double vision or headache. SKIN: Not dry. Intact. Turgor-normal. LYMPHATIC: No palpable lymph nodes/no lymphedema. MUSCULOSKELETAL: Normal joints with no swelling. Muscle tone is normal. LAB REVIEW: 11/10/19 04:50 11/10/19 04:50 11/10/19 04:50: Sodium 137.8, Potassium 4.07, Chloride 105.3, Carbon Dioxide 32.1 H, Anion Gap 4.47, BUN 16.2, Creatinine 0.71, Estimated GFR (MDRD) 78.00, BUN/Creatinine Ratio 22.81, Glucose 120.4 H, Calcium 8.41, Total Bilirubin 0.14 L, AST 39.5 H, ALT 13.4, Alkaline Phosphatase 70.1, Total Protein 6.03 L, Albumin 3.05 L, Globulin 2.98, Albumin/Globulin Ratio 1.02 11/10/19 04:50: WBC 6.41, RBC 2.86 L, Hgb 8.0 L, Hct 27.2 L, MCV 95.1, MCH 28.0, MCHC 29.4 L, RDW Coeff of Alyssa 15.9 H, Plt Count 321, Neutrophils % (Manual) 92.0 H, Lymphocytes % (Manual) 3.0 L, Monocytes % (Manual) 5.0, Hypochromasia 1+, Anisocytosis Not present, Microcytosis 1+ 11/09/19 12:25: Urine Color Yellow, Urine Clarity Clear, Urine pH 6.0, Ur Specific [place] 1.020, Urine Protein Negative, Urine Glucose (UA) Negative, Urine Ketones Negative, Urine Blood Negative, Urine Nitrite Negative, Urine Doug irubin Negative, Urine Urobilinogen 0.2, Ur Leukocyte Esterase 1+ H, Urine Microscopic WBC 2-5, Ur Squamous Epith Cells 0-2 11/09/19 11:09: Puncture Site R rad, O2 Saturation 93.0 L, ABG pH 7.42, ABG pCO2 42.1, ABG pO2 68.0 L, ABG HCO3 26.8 H, ABG Total CO2 28, ABG Base Excess 2, John Test +, O2 Delivery Device Ra, FiO2 % 21.0 11/09/19 10:30: NT-Pro-B Natriuret Pep 1180.000 H 11/09/19 10:30: Procalcitonin < 0.05 11/09/19 10:30: C-Reactive Prot, Quant < 1 11/09/19 10:30: Lactic Acid 1.46 11/09/19 10:30: ESR 22 H 11/09/19 10:30: Influ A Molecular Assay Negative by naat, Influ B Molecular Assay Negative by naat, RSV Antigen Negative by naat 11/09/19 10:30: Sodium 138.2, Potassium 3.71, Chloride 102.3, Carbon Dioxide 32.9 H, Anion Gap 6.71, BUN 10.5, Creatinine 0.72, Estimated GFR (MDRD) 76.00, BUN/Creatinine Ratio 14.58, Glucose 109.3 H, Calcium 9.06, Magnesium 2.07, Total Bilirubin 0.19 L, AST 42.7 H, ALT 15.4, Alkaline Phosphatase 80.6, Total Creatine Kinase 32.1, Troponin I 0.015, Total Protein 6.97, Albumin 3.64, Globulin 3.33, Albumin/Globulin Ratio 1.09 11/09/19 10:30: WBC 6.66, RBC 3.19 L, Hgb 9.0 L, Hct 30.1 L, MCV 94.4, MCH 28.2, MCHC 29.9 L, RDW Coeff of Alyssa 15.6 H, Plt Count 390, Immature Gran % (Auto) 0.3, Neut % (Auto) 72.9, Lymph % (Auto) 15.5, [place] % (Auto) 8.6, Eos % (Auto) 1.8, Baso % (Auto) 0.9, Neut # (Auto) 4.9, Lymph # (Auto) 1.0, [place] # (Auto) 0.6, Eos # (Auto) 0.1, Baso # (Auto) 0.1, Immature Gran # (Auto) 0.0 ASSESSMENT: Please see below. 1. Shortness of breath 2. Bilateral pneumonia 3. Chronic anemia 4. Coronary artery disease 5. Severe peripheral arterial disease 6. Generalized weakness. PLAN: 1. Discontinue IV fluids 2. Albuterol inhaler TID scheduled 3. Continue IV antibiotics 4. CBC and CMP in the morning 5. Fall precautions. SCRIBED BY: JAVON KIRAN, [employer] scribed while in presence of service performed by Dr. Zapata/Melody Deleon APRN on 11/10/19 ([id number])
[2019-11-10 08:28] LABS: RETICULOCYTE % 2.8 %; RETICULOCYTE HEMOGLOBIN 33.2
[2019-11-10 08:35] LABS: IRON 23.2 ug/dL (37-170)
[2019-11-10] MEDS: NON-FORMULARY MEDICATION (Brimonidine-Timolol [Combigan] 1 DROP) EACHEYE SCH ×2 (08:41→17:22)
[2019-11-10] MEDS: VITAMIN A VITAMIN C VIT E MIN PO SCH (08:48)
[2019-11-10] MEDS: ROCEPHIN 1 GM/50 ML D5W 1 GM/50 ML BAG IV SCH (08:50)
[2019-11-10] MEDS: ZITHROMAX PO SCH (08:51)
[2019-11-10] MEDS: ASPIRIN EC PO SCH (08:51)
[2019-11-10] MEDS: LIBRIUM PO SCH ×2 (08:51→20:56)
[2019-11-10] MEDS: LIPITOR PO SCH (08:51)
[2019-11-10] MEDS: SINGULAIR PO SCH (08:52)
[2019-11-10] MEDS: FERROUS SULFATE PO SCH (08:52)
[2019-11-10] MEDS: PLAVIX PO SCH (08:52)
[2019-11-10] MEDS: VITAMIN E PO SCH (08:52)
[2019-11-10] MEDS: COREG PO SCH ×2 (08:52→17:23)
[2019-11-10] MEDS: DECADRON 4 MG/ML SDV IM SCH (08:53)
[2019-11-10] MEDS: VITAMIN D PO SCH (08:53)
[2019-11-10] MEDS: BRINZOLAMIDE EACHEYE SCH ×3 (08:54→17:27)
[2019-11-10] MEDS ORDERED: NON-FORMULARY MEDICATION (Ferrous Sulfate [Iron (Ferrous Sulfate)] 325 MG) PO SCH (09:00)
[2019-11-10] MEDS ORDERED: NON-FORMULARY MEDICATION (Vitamin E 400 UNIT) PO SCH (09:00)
[2019-11-10 09:10] LABS: FERRITIN 42.4 ng/mL (11.1-264.0)
[2019-11-10 09:41] LABS: FOLATE 12.2 ng/mL
[2019-11-10] MEDS: VENTOLIN HFA (PER PUFF-WITH SPACER) IH SCH ×2 (14:12→20:38)
[2019-11-10] MEDS: XALATAN EACHEYE SCH (20:57)
[2019-11-11 04:50] LABS: BASOPHILS % (AUTO) 0.3 % (0.0-3.0); HEMATOCRIT 24.5 % (37.0-47.0); HEMOGLOBIN 7.4 g/dl (12.0-16.0); IMMATURE GRANULOCYTE # (AUTO) 0.1 (0.0-1.0); IMMATURE GRANULOCYTE % (AUTO) 0.5 % (0.0-5.0); LYMPHOCYTES # (AUTO) 1.1 K/uL (0.60-3.4); LYMPHOCYTES % (AUTO) 11.4 (10.0-50.0); MEAN CORPUSCULAR HGB CONC 30.2 (31.8-35.4); MONOCYTES # (AUTO) 0.9 K/uL (0.4-2.0); MONOCYTES % (AUTO) 9.6 (0-10); NEUTROPHILS # (AUTO) 7.4 K/ul (2.0-6.9); NEUTROPHILS % (AUTO) 78.2 % (42.2-75.2); PLATELET COUNT 302 10^3/uL (140-440); RDW COEFFICIENT OF VARIATION 16.5 % (11.6-14.8); RED BLOOD COUNT 2.58 10^6/ul (4.20-5.40); WHITE BLOOD COUNT 9.48 K/ul (4.6-10.2)
[2019-11-11] MEDS: VENTOLIN HFA (PER PUFF-WITH SPACER) IH SCH ×3 (04:50→19:15)
[2019-11-11 05:02] LABS: ALANINE AMINOTRANSFERASE 12.4 U/L (0-35); ALBUMIN 2.83 g/dL (3.5-5.0); ALKALINE PHOSPHATASE 59.9 U/L (53-141); ASPARTATE AMINO TRANSFERASE 30.7 U/L (14-36); BLOOD UREA NITROGEN 19.7 mg/dL (7-17); CARBON DIOXIDE 31.7 mmol/L (22-30.0); CHLORIDE 106.7 mmol/L (98-107); CREATININE 0.79 mg/dL (0.60-1.30); GLUCOSE 107.9 mg/dL (74-106); SODIUM 139.2 mmol/L (134.5-145); TOTAL PROTEIN 5.68 g/dL (6.3-8.2)
[2019-11-11 05:03] LABS: BILIRUBIN,TOTAL < 0.10 mg/dL (0.2-1.3)
[2019-11-11] MEDS: PEG PROPYLENE GLYCOL EACHEYE PRN ×2 (05:39→18:25)
[2019-11-11] MEDS: ROCEPHIN 1 GM/50 ML D5W 1 GM/50 ML BAG IV SCH (08:06)
[2019-11-11] MEDS: DECADRON 4 MG/ML SDV IM SCH (08:06)
[2019-11-11] MEDS: FERROUS SULFATE PO SCH (08:06)
[2019-11-11] MEDS: SINGULAIR PO SCH (08:06)
[2019-11-11] MEDS: LIBRIUM PO SCH ×2 (08:07→20:14)
[2019-11-11] MEDS: VITAMIN E PO SCH (08:07)
[2019-11-11] MEDS: ASPIRIN EC PO SCH (08:07)
[2019-11-11] MEDS: ZITHROMAX PO SCH (08:07)
[2019-11-11] MEDS: LIPITOR PO SCH (08:07)
[2019-11-11] MEDS: BRINZOLAMIDE EACHEYE SCH ×3 (08:08→16:36)
[2019-11-11] MEDS: PLAVIX PO SCH (08:08)
[2019-11-11] MEDS: COREG PO SCH ×2 (08:08→16:35)
[2019-11-11] MEDS: NON-FORMULARY MEDICATION (Brimonidine-Timolol [Combigan] 1 DROP) EACHEYE SCH ×2 (08:09→16:34)
[2019-11-11] MEDS: VITAMIN A VITAMIN C VIT E MIN PO SCH (08:10)
[2019-11-11] MEDS: VITAMIN D PO SCH (08:18)
[2019-11-11] MEDS ORDERED: PEPTO-BISMOL SUSP PO PRN (14:14)
--- NOTE | 2019-11-11 16:20 | RS.SLPCNOT ---
Speech Case Note Date of Note: 11/11/19 Title: Swallow consult Note: RN called CENTRAL SUPPLY WORKER at lunchtime. She reported pt was getting choked on meal. Pt recovered, but required assistance and verbal education. CENTRAL SUPPLY WORKER discussed with RN about swallow education, and RN requested CENTRAL SUPPLY WORKER discuss safe swallowing with pt at the bedside. CENTRAL SUPPLY WORKER began discussing safe swallowing, medication administration, and pt had multiple questions and concerns. CENTRAL SUPPLY WORKER determined pt could be a candidate for skilled ST due to pt living independent at home, hx of frequent pneumonia episodes, current weakness/fatigue, and dentition status. CENTRAL SUPPLY WORKER provided pt with verbal education on mechanical soft diet texture, medication administration techniques, universal choking sign, and Heimlich maneuver. MD to determine if MBSS vs BSE is required to begin skilled therapy.
[2019-11-11 18:44] LABS: HEMATOCRIT 35.9 % (37.0-47.0)
[2019-11-11 18:45] LABS: HEMOGLOBIN 11.4 g/dl (12.0-16.0)
[2019-11-11] MEDS: XALATAN EACHEYE SCH (20:12)
[2019-11-11] MEDS: MULTIVITAMIN WITH MINERALS PO SCH (20:13)
[2019-11-11] MEDS ORDERED: MULTIVITAMIN WITH MINERALS PO SCH (21:00)
[2019-11-12] MEDS: PEG PROPYLENE GLYCOL EACHEYE PRN ×3 (05:14→22:16)
[2019-11-12] MEDS: VENTOLIN HFA (PER PUFF-WITH SPACER) IH SCH (05:15)
[2019-11-12 05:21] LABS: BASOPHILS % (AUTO) 0.2 % (0.0-3.0); HEMATOCRIT 38.7 % (37.0-47.0); HEMOGLOBIN 12.2 g/dl (12.0-16.0); IMMATURE GRANULOCYTE % (AUTO) 0.3 % (0.0-5.0); LYMPHOCYTES # (AUTO) 0.9 K/uL (0.60-3.4); LYMPHOCYTES % (AUTO) 8.5 (10.0-50.0); MEAN CORPUSCULAR HGB CONC 31.5 (31.8-35.4); MEAN CORPUSCULAR VOLUME 93.7 fl (81.0-99.0); MONOCYTES # (AUTO) 0.9 K/uL (0.4-2.0); MONOCYTES % (AUTO) 8.9 (0-10); NEUTROPHILS # (AUTO) 8.3 K/ul (2.0-6.9); NEUTROPHILS % (AUTO) 82.1 % (42.2-75.2); PLATELET COUNT 283 10^3/uL (140-440); RDW COEFFICIENT OF VARIATION 15.4 % (11.6-14.8); RED BLOOD COUNT 4.13 10^6/ul (4.20-5.40); WHITE BLOOD COUNT 10.14 K/ul (4.6-10.2)
[2019-11-12 05:34] LABS: ALANINE AMINOTRANSFERASE 17.7 U/L (0-35); ALBUMIN 3.16 g/dL (3.5-5.0); ALKALINE PHOSPHATASE 68.8 U/L (53-141); ASPARTATE AMINO TRANSFERASE 35.4 U/L (14-36); BILIRUBIN,TOTAL 0.49 mg/dL (0.2-1.3); CALCIUM 8.54 mg/dL (8.4-10.2); CARBON DIOXIDE 30.5 mmol/L (22-30.0); CHLORIDE 103.3 mmol/L (98-107); CREATININE 0.71 mg/dL (0.60-1.30); GLUCOSE 111.4 mg/dL (74-106); TOTAL PROTEIN 6.22 g/dL (6.3-8.2)
[2019-11-12] MEDS ORDERED: PROTONIX PO PRN (08:18)
[2019-11-12] MEDS ORDERED: LASIX IVP STA (08:19)
[2019-11-12] MEDS: PLAVIX PO SCH (08:41)
[2019-11-12] MEDS: ASPIRIN EC PO SCH (08:42)
[2019-11-12] MEDS: LIPITOR PO SCH (08:42)
[2019-11-12] MEDS: DECADRON 4 MG/ML SDV IM SCH (08:42)
[2019-11-12] MEDS: SINGULAIR PO SCH (08:42)
[2019-11-12] MEDS: VITAMIN D PO SCH (08:43)
[2019-11-12] MEDS: COREG PO SCH ×2 (08:43→16:40)
[2019-11-12] MEDS: LIBRIUM PO SCH ×2 (08:43→20:21)
[2019-11-12] MEDS: FERROUS SULFATE PO SCH (08:43)
[2019-11-12] MEDS: VITAMIN E PO SCH (08:43)
[2019-11-12] MEDS: BRINZOLAMIDE EACHEYE SCH ×3 (08:44→16:40)
[2019-11-12] MEDS: NON-FORMULARY MEDICATION (Brimonidine-Timolol [Combigan] 1 DROP) EACHEYE SCH ×2 (08:44→16:40)
[2019-11-12] MEDS: PROTONIX PO SCH (08:48)
[2019-11-12] MEDS: ROCEPHIN 1 GM/50 ML D5W 1 GM/50 ML BAG IV SCH (08:48)
[2019-11-12] MEDS: MULTIVITAMIN WITH MINERALS PO SCH ×2 (09:27→20:21)
--- NOTE | 2019-11-12 09:32 | PCM.PROG ---
Attending Provider: ATTENDING PROVIDER: Dr. RANDY ZAPATA This patient is seen with Melody Deleon, Nurse Practitioner. DATE OF SERVICE: 11/12/19 SUBJECTIVE: This 89 year old /WHITE F was hospitalized 11/09/19. The patient is in the bed resting comfortably. The patient is still complaining of cough and weakness. She reports having difficulty with eating. Speech saw the patient and recommended mechanical soft diet and further evaluation. We will followup on that today. Physical therapy is consulted for weakness. Continue IV antibiotics. We will start DUO NEBS today scheduled. Hgb is stable today and will continue to monitor. REVIEW OF SYSTEMS: CONSTITUTIONAL: No night sweats. No fatigue, malaise, lethargy. No fever or chills. Weakness. HEENT: Eyes: No visual changes. No eye pain. No eye discharge. ENT: No runny nose. No epistaxis. No sinus pain. No odynophagia. No congestion. RESPIRATORY:Cough, no congestion. No hemoptysis. Shortness of breath. CARDIOVASCULAR: No angina symptoms. No CHF symptoms. No atypical chest pain for CAD. No palpitations. No orthopnea.. GASTROINTESTINAL: No abdominal pain. No nausea or vomiting. No diarrhea or constipation. No hematemesis. No hematochezia. GENITOURINARY: No urgency. No frequency. No dysuria. No hematuria. No obstr uctive symptoms. No discharge. No pain. No significant abnormal bleeding. MUSCULOSKELETAL: No musculoskeletal pain; no joint swelling. NEUROLOGICAL: Awake, alert, oriented to time, place and person. No headache. No neck pain. No syncope. No seizures. No dizziness. PSYCHIATRIC: Not anxious. No depression. No suicidal thoughts. No homicidal thoughts. SKIN: No rash. No lesions. No wounds. ENDOCRINE: No unexplained weight loss. No weight gain. HEMATOLOGIC/LYMPHATIC: No anemia. No purpura. No petechiae. No prolonged or excessive bleeding. No palpable lymph nodes. PHYSICAL EXAMINATION: GENERAL: The patient is awake, alert and oriented, lying in bed in no distress. VITAL SIGNS: Temperature 98.1 F, Pulse 65, Respiratory Rate 20, BP 154/59, Pulse Ox 99% HEENT: Head normocephalic, atraumatic. Eyes: Extraocular muscles are intact. Pupils are equal, round and reactive to light and accommodation. Ears: No lesions. Nose appeared normal. Throat: No exudate or erythema. NECK: Supple. No JVD, no carotid bruit. No lymphadenopathy or thyromegaly. LUNGS: Diminished breath sounds with coarse bilaterally. Clear to auscultation. Percussion note normal. Chest symmetrical. HEART: S1, S2, no S3. No murmurs. No cyanosis or clubbing. No ascites. Pulses: Dorsalis pedis and posterior tibial pulses +1 to +2 both sides. ABDOMEN: Soft. Non-tender. Bowel sounds active. No CVA tenderness. No mass felt. EXTREMITIES: No edema. Full range of motion of all extremities, equal. NEUROLOGIC: No focal deficit. Cranial nerves II through XII are grossly intact. No headache, no double vision or headache. SKIN: Not dry. Intact. Turgor-normal. LYMPHATIC: No palpable lymph nodes/no lymphedema. MUSCULOSKELETAL: Normal joints with no swelling. Muscle tone is normal. LAB REVIEW: 11/12/19 05:00 11/12/19 05:00 11/12/19 05:00: Sodium 136.0, Potassium 4.02, Chloride 103.3, Carbon Dioxide 30.5 H, Anion Gap 6.22, BUN 18.0 H, Creatinine 0.71, Estimated GFR (MDRD) 78.00, BUN/Creatinine Ratio 25.35, Glucose 111.4 H, Calcium 8.54, Total Bilirubin 0.49, AST 35.4, ALT 17.7, Alkaline Phosphatase 68.8, Total Protein 6.22 L, Albumin 3.16 L, Globulin 3.06, Albumin/Globulin Ratio 1.03 11/12/19 05:00: WBC 10.14, RBC 4.13 L D, Hgb 12.2, Hct 38.7, MCV 93.7, MCH 29.5, MCHC 31.5 L, RDW Coeff of Alyssa 15.4 H, Plt Count 283, Immature Gran % (Auto) 0.3, Neut % (Auto) 82.1 H, Lymph % (Auto) 8.5 L, [place] % (Auto) 8.9, Eos % (Auto) 0.0, Baso % (Auto) 0.2, Neut # (Auto) 8.3 H, Lymph # (Auto) 0.9, [place] # (Auto) 0.9, Eos # (Auto) 0.0, Baso # (Auto) 0.0, Immature Gran # (Auto) 0.0 11/11/19 18:37: Hgb 11.4 L D, Hct 35.9 L D 11/11/19 09:32: Blood Type AB POSITIVE, Antibody Screen Negative, Crossmatch (AHG) See Detail 11/11/19 04:41: Blood Type AB POSITIVE ASSESSMENT: Please see below. 1. Shortness of breath 2. Bilateral pneumonia 3. Chronic anemia 4. Coronary artery disease 5. Severe peripheral arterial disease 6. Generalized weakness. PLAN: 1. DUO NEBS Scheduled TID 2. Continue IV Rocephin 2. Speech for swallow evaluation 4. [employer] soft diet per speech recommendation 5. Physical therapy. Plan and coordination of the patient's care discussed in the presence of Office Worker and nurse. SCRIBED BY: JAVON KIRAN Sql Tech scribed while in presence of service performed by Dr. Zapata/Melody Deleon APRN on 11/12/19 ([id number])
--- NOTE | 2019-11-12 12:47 | RS.BEDDYS ---
Subjective Date of Evaluation: 11/12/19 Diagnosis: pneumonia, SOB Current Level of Function: This 89 year old female lives in her home. She has no previous medical hx of swallowing difficulty. She has reported multiple episodes of pneumonia and increased general weakness. She has risk for aspirat ion/penetration due to pnuemonia, low hemoglobin, age, and general weakness. Current Diet: Thin liquids and regular diet upon admit. Changed to chopped meats after difficulty observed from nursing staff. Current Subjective/complaints:: Nursing referred pt for BSE due to choking incident at dinner yesterday this date. AIR COMPRESSOR MECHANIC had consulted with nursing and patient about possible risks for aspiration. Pt was provided education and safe swallow precautions, however still had an episode with dinner. She reported, "feels like I breathed some of the crust down." she went on to discuss "i've been very careful about what I try to eat." She discussed having a poor appetite and did not consume but a few bites of breakfast due weakness and fear with swallowing. She went on to report that she feels, "very weak, and I could not eat much." She also reported having loose BM and frequent movements that are interferring with her PO intake. She also discussed concerns with her SOB, and wearing her nasal cannula due to ear feeling sore. She was however cooperative to wear the nasal cannula and compelte breathing exercises to decrease SOB sensation. Medical History Comments:: COPD, HTN, pneumonia, GERD. per pt report hiatal hernia Hx Home Medications: Refer to medications for complete list. Patient's Goals: To increase safety with PO intake. AIR COMPRESSOR MECHANIC to provide pt with safest and least restrictive diet. AIR COMPRESSOR MECHANIC to improve pt's swallow strength. General Information - General Denture Type: Full- Upper, Partial- Lower (Pt does not have lower partial at this time due to recent brake of tooth.) Patient Orientation: Person, Place, Time, Situation Ability to Follow Directions: Excellent Is Patient able to Repeat Directions?: Yes Oral-Facial Assessment - Face Facial Symmetry: Left Droop (Slight, but AIR COMPRESSOR MECHANIC noticed.) - Dental/Labial Teeth Characteristics: Missing Teeth Comment: Dentition impacts mastication. Lip Protrusion: Weak - Lingual Protrusion: Weak Retraction: Weak Tip Lateralization: Weak Repeated Tip Lateralization: Weak Tip Elevation: Weak Repeated Tip Elevation: Weak Comments: Right deviation with protrusion. Over-exageration with lateralization, but weak. Pt stated, tongue feels weak. Food Presentation - Solids Food Presented: Mechanical Soft (finger foods, pt self fed.) Behaviors/Comments: Pt demonstrated prolonged mastication. She reported yun cracker was dry and difficult to manipulate bolus. Bolus formation was uncoordinated, but pt verbalized sensation of lingual residuals. Resiude on top denture plate and under denture plate was verbalized and observed. Pt required liquid wash to clear oral cavity. No overt s/s of aspiration. Food Presented: Chopped (Meat with gravy via spoon.) Behaviors/Comments: Pt self-fed. Pt had prolonged mastication and moderate difficulty with bolus manipulation. AIR COMPRESSOR MECHANIC provided verbal cues with bolus formation and effortful swallow technqiue. AIR COMPRESSOR MECHANIC also verbalized use of liquid wash and read pt safe swallow precautions and compensatory swallow techniques listed in room. No overt s/s of aspiration. - Liquids Liquid Presented: Thin (Via straw and open cup.) Behaviors/Comments: Pt had delayed swallow initation, audible swallow, watery eyes, and vocal change. Post swallow throat clear or immediate cough was demonstrated. Pt reported feeling need to cough with thin water. Pt has risks for aspiration/penetration. Liquid Presented: [place] (Via straw and open cup.) Behaviors/Comments: Pt took liquids via straw and reported difficulty with pulling liquids into oral cavity. Open cup was presented. Pt demonstrated no difficulty with cup to mouth, no leakage of liquids and no overt s/s of aspiration. Pt took multiple sips without verbal cues to swallow. - Recommendations: Dysphagia Evaluation Dietary Recommendations: Dysphagia Mechanical Soft, [place]- thick liquids Comments:: All mechanical soft items need to be extra soft. No bread or bread textures provided to pt. All items on plate need to be fork mashable. No skins on fruits or vegetables. All meats covered in gravy or condiments. [place] thick liquids with all PO intake and between meals. Open cup only. Dysphagia Swallow Precautions/Strategies: Sitting Upright (90 deg), No Straw, Liquids from Cup, Small Bites and Sips, Alternate Liquids/Solids Comments:: Pt has a list of recommended strategies and safe swallow precautions by the bedside. All staff/family whom feeds or assists with PO intake is required to follow instructions for safest swallow and to decrease aspiration risks. - Summary Dysphagia Evaluation Summary: Pt presents with moderate oropharyngeal dysphagia. She presents with lingual and labial weakness and discoordination. Difficulty with bolus formation, clearing oral cavity residuals, as well as poor fitting dentures all attribute to risks for aspiration of PO intake. Pharyngeal phase is characterized with swallow delay, and overt s/s of aspiration with thin liquids including eyes watering, vocal change, throat clear and coughing. Pt has a risk for aspiration/penetration and aspiration pneumonia. Further Therapy Indicated?: Yes Comments: AIR COMPRESSOR MECHANIC to provide pt with education re-education and strengthening to improve swallow function and safety with PO intake. Rehab Potential: Good Functional Reporting G Codes: n/a Severity Impairment Rationale: n/a Short Term Goals Problem: Oral weakness Goal #1: Complete 10/10 lingual strength exercises given verbal/written cues. Goal to be met by: 11/19/19 Problem: Laryngeal elevation Goal #2: Complete 10/10 reps of high /e/ sustain 10 secs w/ verbal/written cues. Goal to be met by: 11/19/19 Problem: Safety awareness Goal #3: Pt verbalize and demonstrate safe swallow precautions 100% Goal to be met by: 11/19/19 Problem: swallow strength Goal #4: Pt complete effortful swallow 10x over 5 trials independently. Goal to be met by: 11/19/19 Coding And Reimbursement Specialist Goals Problem: Aspiration risks Goal #1: Pt to consume thin liquids w/o overt s/s of aspiration 12/04. Goal to be met by: 11/19/19 Problem: Aspiration risk Goal #2: Consume mechanical soft diet texture w/ compen. swallow strat 12/04. Goal to be met by: 11/19/19 Plan Duration of Treatment: 1 Week Frequency of Treatment: 2-3x/week Anticipated Discharge Destination: Home (Pt plans to go home alone with intermittent supervision from son during meal times.) Comments: AIR COMPRESSOR MECHANIC recommends pt be able to demonstrate safe swallowing and improve swallow strength prior to d/c home. If pt can not improve swallowing function with skilled ST; diet and liquid modifications needs to be continued in the home environment. - Treatment Code (1) Oropharyngeal dysphagia Code(s): R13.12 - Dysphagia, oropharyngeal phase
--- NOTE | 2019-11-12 13:57 | PN ---
DATE OF SERVICE: 11/09/2019 SUBJECTIVE: The patient was hospitalized to [facility]. When she came to the emergency room complaining of shortness of breath and cough with possible pneumonia. She was tested for COVID. She is going to be on antibiotics Rocephin, Zithromax and steroids. The patient is up and about. She is oriented to time, place and person. Saturation is more than 90% on room air. Condition seems to be stable. The patient's history and physical was done with Nursing Practitioner which she is going to do it later one. TIME SPENT: More than 30 minutes. Plan and coordination of the patient's care discussed in the presence of nurse. CHIDI
[2019-11-12] MEDS: DUONEB NEB SCH ×2 (14:10→19:00)
--- NOTE | 2019-11-12 16:04 | RS.PTINEVL ---
Subjective - Patient information Date of Evaluation: 11/12/19 Date of Arrival on Unit: 11/09/19 Admitted From:: Home Diagnosis: B pneumonia, chronic anemia, Usual Living Arrangement: Alone Living Arrangement Comments: lives alone, family is very supportive and help with groceries, meals, transportation etc. Home Environment: House, Stairs (few), Rail Medical History: Hypertension, COPD, Diabetes Medical History Comments:: PAD, CAD, Cervical radiculopathy, LATEX ALLERGY?: No Surgical History: CABG Surgical History Comments:: fem/pop bypass Medications: see chart Subjective Information/ Patient Comments:: pt states that she is tired but she would like to try to walk. pt reports that she has been up and down to bathroom several times today. - Level of function Prior to this admission, the patient could do the following:: Independent Selfcare, Independent Ambulation Current Level of Function: Partially Dependent Current Equipment Used at Home: TeleCommunication Systems NECKLACE, ROLLATOR WALKER, CANE, WHEELCHAIR Interventions - Objective Patient Orientation: Person, Place, Time, Situation Current Interventions: IV's, Oxygen (2 liters), Telemetry Observation: pt with increased thoracic kyphosis, rounded shlds, forward head. Range of Motion - ROM Right Upper Extremity AROM: WFL's Left Upper Extremity AROM: WFL's Right Lower Extremity AROM: WFL's Left Lower Extremity AROM: WFL's Muscle Strength - Muscle Strength Right Upper Extremity Strength: Mild Weakness (shld flex 3+/5, elbow flex/ext 4- /5) Left Upper Extremity Strength: Mild Weakness (shld flex 3+/5, elbow flex/ext 4- /5) Right Lower Extremity Strength: Mild Weakness (hip flex 3+/5, knee flex/ext 4- /5, ankle DF/PF 4-/5) Left Lower Extremity Strength: Mild Weakness (hip flex 3+/5, knee flex/ext 4-/5, ankle DF/PF 4-/5) Sensation - Sensation Right Upper Extremity Sensation: Intact/Normal Left Upper Extremity Sensation: Intact/Normal Right Lower Extremity Sensation: Intact/Normal Left Lower Extremity Sensation: Intact/Normal Palpation Palpation Findings: None/Normal Balance - Sitting Balance and Reactions Static Sitting Balance: Good Dynamic Sitting Balance: Good - Standing Balance and Reactions Static Standing Balance: Good Dynamic Standing Balance: Fair Functional Mobility - Bed Mobility Scooting: CGA Sit to Supine: CGA - Transfers Sit to Stand: CGA Stand to Sit: CGA - Safety Awareness Safety Awareness: Fair JAVIER INDEX SCORE: n/a Ambulation - Ambulation Assistive Device Used: Rolling Walker Orthotic/Prosthetic Device: No Distance: 44ft Assistance needed with Ambulation: CGA Quality of Ambulation: pt amb with decreased step length, flexed posture. pt amb with 2 liters O2. Gait Deviations: Forward posture, Short stride Factors Affecting Ambulation: Decreased Balance, Breathing/O2 Saturation, Weakness, Decreased Safety Treatment time - Time with patient Length of Evaluation: 22 Total treatment time: 27 Patient Education - Education Patient Education: Activity Modification, Education of Plan of Care Teaching Recipient: Patient Teaching Methods: Discussion, Demonstration Comments: discussion regarding POC and safety. Assessment - Assessment Problem List:: Decreased level of function, Requires training/education, Decreased safety/Risk of falls, Weakness Rehab Potential: Good Further Therapy Indicated?: Yes Evaluation Complexity: HISTORY: Medium, EXAM OF BODY SYSTEMS: Medium, CLINICAL PRESENTATION: Medium, CLINICAL DECISION MAKING: Medium Patient's Goal(s): get stronger and go home Short Term Goals GOAL #1: pt transfer sup to/from sit SBA Goal to be met by: 11/14/19 GOAL #2: pt transfer sit to stand with SBA Goal to be met by: 11/14/19 GOAL #3: pt amb with rwx 70ft with CGA and O2. Goal to be met by: 11/14/19 GOAL #4: Improve BLE strength 4 /5 Goal to be met by: 11/14/19 Longterm Goals GOAL #1: pt transferred sup to/from sit to/from stand independently Goal to be met by: 11/17/19 GOAL #2: pt amb with rwx functional household distances independently. Goal to be met by: 11/17/19 GOAL #3: ascend/descend 2-3 steps with HR CGA Goal to be met by: 11/17/19 Plan Plan of Care: Therapeutic EX, Therapeutic Activity, Self-Care/Home Management Frequency of Treatment: 1-2 X day, as tolerated Duration of Treatment: 5 days Anticipated Discharge Destination: Home (with home health) Treatment Diagnosis (ICD 10 Codes): difficulty walking R26.2. balance impaired R 26.81. falls Z91.81 Has the Physician been added for Co-signature?: Yes
[2019-11-12] MEDS: XALATAN EACHEYE SCH (20:21)
[2019-11-13] MEDS: DUONEB NEB SCH ×2 (05:18→14:06)
[2019-11-13] MEDS: PROTONIX PO SCH (05:31)
[2019-11-13] MEDS: PEG PROPYLENE GLYCOL EACHEYE PRN ×2 (05:32→09:04)
[2019-11-13 05:45] LABS: BASOPHILS % (AUTO) 0.1 % (0.0-3.0); EOSINOPHILS % (AUTO) 0.1 % (0.0-7.0); HEMATOCRIT 39.1 % (37.0-47.0); HEMOGLOBIN 12.6 g/dl (12.0-16.0); IMMATURE GRANULOCYTE % (AUTO) 0.3 % (0.0-5.0); LYMPHOCYTES % (AUTO) 11.3 (10.0-50.0); MEAN CORPUSCULAR HGB CONC 32.2 (31.8-35.4); MONOCYTES # (AUTO) 0.9 K/uL (0.4-2.0); MONOCYTES % (AUTO) 10.4 (0-10); NEUTROPHILS # (AUTO) 6.9 K/ul (2.0-6.9); NEUTROPHILS % (AUTO) 77.8 % (42.2-75.2); PLATELET COUNT 283 10^3/uL (140-440); RDW COEFFICIENT OF VARIATION 15.6 % (11.6-14.8); RED BLOOD COUNT 4.25 10^6/ul (4.20-5.40); WHITE BLOOD COUNT 8.88 K/ul (4.6-10.2)
[2019-11-13 05:56] LABS: ALBUMIN 3.05 g/dL (3.5-5.0); ALKALINE PHOSPHATASE 68.8 U/L (53-141); ASPARTATE AMINO TRANSFERASE 30.5 U/L (14-36); BILIRUBIN,TOTAL 0.44 mg/dL (0.2-1.3); CALCIUM 8.71 mg/dL (8.4-10.2); CARBON DIOXIDE 33.6 mmol/L (22-30.0); CREATININE 0.66 mg/dL (0.60-1.30); GLUCOSE 91.7 mg/dL (74-106); SODIUM 135.4 mmol/L (134.5-145); TOTAL PROTEIN 6.1 g/dL (6.3-8.2)
--- NOTE | 2019-11-13 08:19 | PCM.PROG ---
Attending Provider: ATTENDING PROVIDER: Dr. RANDY ZAPATA This patient is seen with Melody Deleon, Nurse Practitioner. DATE OF SERVICE: 11/13/19 SUBJECTIVE: This 89 year old /WHITE F was hospitalized 11/09/19. The patient is resting in the bed comfortably. The patient is feeling some better. Continues to complain of cough. She was evaluated again by speech therapy. They did document some weakness with her swallowing which will need further education training. They changed her diet to mechanical soft necture thick. Still complaining of weakness up with assist. Physical therapy is working with her. The patient would benefit greatly from swing bed placement for therapy. REVIEW OF SYSTEMS: CONSTITUTIONAL: No night sweats. No fatigue, malaise, lethargy. No fever or c hills. Weakness HEENT: Eyes: No visual changes. No eye pain. No eye discharge. ENT: No runny nose. No epistaxis. No sinus pain. No odynophagia. No congestion. RESPIRATORY: Cough, no congestion. No hemoptysis. Shortness of breath, improved. CARDIOVASCULAR: No angina symptoms. No CHF symptoms. No atypical chest pain for CAD. No palpitations. No orthopnea.. GASTROINTESTINAL: No abdominal pain. No nausea or vomiting. No diarrhea or constipation. No hematemesis. No hematochezia. GENITOURINARY: No urgency. No frequency. No dysuria. No hematuria. No obstructive symptoms. No discharge. No pain. No significant abnormal bleeding. MUSCULOSKELETAL: No musculoskeletal pain; no joint swelling. NEUROLOGICAL: Awake, alert, oriented to time, place and person. No headache. No neck pain. No syncope. No seizures. No dizziness. PSYCHIATRIC: Not anxious. No depression. No suicidal thoughts. No homicidal tho ughts. SKIN: No rash. No lesions. No wounds. ENDOCRINE: No unexplained weight loss. No weight gain. HEMATOLOGIC/LYMPHATIC: No anemia. No purpura. No petechiae. No prolonged or excessive bleeding. No palpable lymph nodes. PHYSICAL EXAMINATION: GENERAL: The patient is awake, alert and oriented, lying in bed in no distress. VITAL SIGNS: Temperature 98.0 F, Pulse 61, Respiratory Rate 18, BP 162/70, Pulse Ox 95% HEENT: Head normocephalic, atraumatic. Eyes: Extraocular muscles are intact. Pupils are equal, round and reactive to light and accommodation. Ears: No le sions. Nose appeared normal. Throat: No exudate or erythema. NECK: Supple. No JVD, no carotid bruit. No lymphadenopathy or thyromegaly. LUNGS: Diminished breath sounds with coarse bilaterally. Clear to auscultation. Percussion note normal. Chest symmetrical. HEART: S1, S2, no S3. No murmurs. No cyanosis or clubbing. No ascites. Pulses: Dorsalis pedis and posterior tibial pulses +1 to +2 both sides. ABDOMEN: Soft. Non-tender. Bowel sounds active. No CVA tenderness. No mass felt. EXTREMITIES: No edema. Full range of motion of all extremities, equal. NEUROLOGIC: No focal deficit. Cranial nerves II through XII are grossly intact. No headache, no double vision or headache. SKIN: Not dry. Intact. Turgor-normal. LYMPHATIC: No palpable lymph nodes/no lymphedema. MUSCULOSKELETAL: Normal joints with no swelling. Muscle tone is normal. LAB REVIEW: 11/13/19 05:15 11/13/19 05:15 11/13/19 05:15: Sodium 135.4, Potassium 3.50, Chloride 100.0, Carbon Dioxide 33.6 H, Anion Gap 5.30, BUN 16.0, Creatinine 0.66, Estimated GFR (MDRD) 84.00, BUN/Creatinine Ratio 24.24, Glucose 91.7, Calcium 8.71, Total Bilirubin 0.44, AST 30.5, ALT 19.0, Alkaline Phosphatase 68.8, Total Protein 6.10 L, Albumin 3.05 L, Globulin 3.05, Albumin/Globulin Ratio 1.00 11/13/19 05:15: WBC 8.88, RBC 4.25, Hgb 12.6, Hct 39.1, MCV 92.0, MCH 29.6, MCHC 32.2, RDW Coeff of Alyssa 15.6 H, Plt Count 283, Immature Gran % (Auto) 0.3, Neut % (Auto) 77.8 H, Lymph % (Auto) 11.3, Keith % (Auto) 10.4 H, Eos % (Auto) 0.1, Baso % (Auto) 0.1, Neut # (Auto) 6.9, Lymph # (Auto) 1.0, Keith # (Auto) 0.9, Eos # (Auto) 0.0, Baso # (Auto) 0.0, Immature Gran # (Auto) 0.0 ASSESSMENT: Please see below. 1. Shortness of breath 2. Bilateral pneumonia 3. Chronic anemia 4. Coronary artery disease 5. Severe peripheral arterial disease 6. Generalized weakness. PLAN: 1. Consult for swing bed 2. Continue Rocephin IV 3. Prednisone 20mg daily 4. Continue physical therapy 5. Continue speech therapy 6. Fall precautions 7. Norvasc 2.5mg twice a day Plan and coordination of the patient's care discussed in the presence of Household Manager and nurse. SCRIBED BY: JAVON KIRAN District Manager scribed while in presence of service performed by Dr. Zapata/Melody Deleon APRN on 11/13/19 ([id number])
[2019-11-13] MEDS ORDERED: PREDNISONE PO SCH (08:30)
[2019-11-13] MEDS: ROCEPHIN 1 GM/50 ML D5W 1 GM/50 ML BAG IV SCH (08:56)
[2019-11-13] MEDS: PLAVIX PO SCH (08:57)
[2019-11-13] MEDS: VITAMIN E PO SCH (08:57)
[2019-11-13] MEDS: LIPITOR PO SCH (08:57)
[2019-11-13] MEDS: LIBRIUM PO SCH (08:57)
[2019-11-13] MEDS: ASPIRIN EC PO SCH (08:57)
[2019-11-13] MEDS: COREG PO SCH (08:57)
[2019-11-13] MEDS: FERROUS SULFATE PO SCH (08:57)
[2019-11-13] MEDS: SINGULAIR PO SCH (08:58)
[2019-11-13] MEDS ORDERED: NORVASC PO SCH (09:00)
[2019-11-13] MEDS: VITAMIN D PO SCH (09:00)
[2019-11-13] MEDS: MULTIVITAMIN WITH MINERALS PO SCH (09:00)
[2019-11-13] MEDS: BRINZOLAMIDE EACHEYE SCH ×2 (09:03→13:15)
[2019-11-13] MEDS: NON-FORMULARY MEDICATION (Brimonidine-Timolol [Combigan] 1 DROP) EACHEYE SCH (09:04)
--- NOTE | 2019-11-13 11:13 | PN ---
DATE OF SERVICE: 11/11/2019 SUBJECTIVE: 89 year old white female hospitalized with pneumonia and weakness. The patient was COVID negative so she has been moved out to the floor. REVIEW OF SYSTEMS: CONSTITUTIONAL: No night sweats. No fatigue, malaise, lethargy. No fever or chills. Mild weakness. HEENT: Eyes: No visual changes. No eye pain. No eye discharge. ENT: No runny nose. No epistaxis. No sinus pain. No sore throat. No odynophagia. No congestion. RESPIRATORY: No cough, no congestion. No hemoptysis. No shortness of breath. CARDIOVASCULAR: No angina symptoms. No CHF symptoms. No atypical chest pain for CAD. No palpitations. No PND. No orthopnea. GASTROINTESTINAL: No abdominal pain. No nausea or vomiting. No diarrhea or constipation. No hematemesis. No hematochezia. Appetite seems to be improving. GENITOURINARY: No urgency. No frequency. No dysuria. No hematuria. No obstructive symptoms. No discharge. No pain. No significant abnormal bleeding. MUSCULOSKELETAL: No musculoskeletal pain; no joint swelling. NEUROLOGICAL: No headache. No neck pain. No syncope. No seizures. No dizziness. PSYCHIATRIC: Not anxious. No depression. No suicidal thoughts. No homicidal thoughts. SKIN: No rash. No lesions. No wounds. ENDOCRINE: No unexplained weight loss. No weight gain. HEMATOLOGIC/LYMPHATIC: No anemia. No purpura. No petechiae. No prolonged or excessive bleeding. No palpable lymph nodes. PHYSICAL EXAMINATION: VITAL SIGNS: Temperature 97.4, pulse 56, respiratory rate 16, blood pressure 150/60 and pulse ox 100%. HEENT: Head normocephalic, atraumatic. Eyes: Extraocular muscles are intact. Pupils are equal, round and reactive to light and accommodation. Ears: No lesions. Nose appeared normal. Throat: No exudate or erythema. NECK: Supple. No JVD, no carotid bruit. No lymphadenopathy or thyromegaly. LUNGS: Decreased breath sounds. Clear to auscultation. Percussion note normal. Chest symmetrical. HEART: S1, S2, no S3. No murmurs. No cyanosis or clubbing. No ascites. Pulses: Dorsalis pedis and posterior tibial pulses +1 to +2 bilaterally. ABDOMEN: Soft. Nontender. Bowel sounds active. No CVA tenderness. No mass felt. EXTREMITIES: No edema. Full range of motion of all extremities, equal. NEUROLOGIC: No focal deficit. Cranial nerves II through XII are grossly intact. No headache, no double vision or headache. SKIN: Not dry. Intact. Turgor - normal. Looks pale. LYMPHATIC: No palpable lymph nodes/no lymphedema. MUSCULOSKELETAL: Normal joints with no swelling. Muscle tone is normal. LABS: Hgb 7.4, hct 24, WBC 9,400 normal differential, creatinine 0.7, BUN 19, potassium 4. PRO BNP 1180. Anemia profile shows anemia of chronic with serum iron level low. ASSESSMENT: 1. Pneumonia, clinically seems to be resolving 2. Anemia, no evidence of active GI bleed PLAN: 1. Type and cross match two units and transfuse them slowly. Transfusion is because the patient has symptomatic anemia with shortness of breath on minimal exertion with poor appetite and failure to thrive. The patient is living by herself and she says that she has no plan of changing it. The patient would be better off with blood transfusion. The patient's son lives three blocks from patient, Missael and two daughters live nearby within few miles. Missael does the cooking. CONDITION: Stable. TIME SPENT: More than 30 minutes. Plan and coordination of the patient's care discussed in the presence of nurse. CHIDI
--- NOTE | 2019-11-13 13:56 | PN ---
DATE OF SERVICE: 11/13/2019 SUBJECTIVE: The patient was seen and examined with the Nurse Practitioner. The patient's condition is stable and improving. She is going to be in swing bed because of further antibiotic treatment and physical therapy and swallowing also needs to be worked on with thickened liquids. CONDITION: Stable, Improving. TIME SPENT: More than 30 minutes. Plan and coordination of the patient's care discussed in the presence of nurse. CHIDI
[2019-11-13 14:07] VITALS: BP 153/53; TEMP 98.6
--- NOTE | 2019-11-13 15:31 | CM.DICTOOL ---
ADMISSION: 11/09/19 13:30 FINAL DIAGNOSIS BILATERAL PNEUMONIA- SERRATIA MARCESCENS OROPHARYNGEAL DYSPHAGIA CHRONIC ANEMIA CORONARY ARTERY DISEASE SEVERE PERIPHERAL ARTERIAL DISEASE GENERALIZED WEAKNESS DIFFICULTY WALKING BALANCE IMPAIRED FALLS MEDICAL HISTORY: GENERALIZED WEAKNESS DIZZINESS ANEMIA HYPERTENSION ALLERGIC RHINITIS DIABETES MELLITUS TYPE 2 ( A1C -5.5 ON 07/14) CORONARY ARTERY DISEASE PERIPHERAL ARTERY DISEASE CERVICAL RADICULOPATHY COPD DYSLIPIDEMIA FORGETFULNESS GLAUCOMA - SEES DR. JOE POLYARTHRITIS PULMONARY NODULES, SEES DR. ASENCIO CHRONIC ANEMIA - HAS REPORTED UNABLE TO TAKE IRON IN THE PAST PROCEDURES: CABG FEM/POP BYPASS - DR. TAN BILATERAL CAROTID ENDARTERECTOMY, 1999 LAST VITALS Temp Pulse Resp BP Pulse Ox 98.0 F 61 16 162/70 H 98 11/13/19 05:49 11/13/19 05:49 11/13/19 08:00 11/13/19 05:49 11/13/19 14:00 TAKE THESE MEDICATIONS AT HOME Albuterol/Ipratropium (Ipratropium/Albuterol Vial.Neb) 3 ml NEB RTTID [facility] Last Admin: 11/13/19 05:18 Dose: 3 ml Documented by: Amlodipine Besylate (Amlodipine Besylate 5 Mg Tablet) 2.5 mg PO DAILY [facility] -- ( NEW) Last Admin: 11/13/19 08:58 Dose: 2.5 mg Documented by: Aspirin (Aspirin Ec) 81 mg PO DAILYWM [facility] Last Admin: 11/13/19 08:57 Dose: 81 mg Documented by: Atorvastatin Calcium (Lipitor) 40 mg PO DAILY [facility] Last Admin: 11/13/19 08:57 Dose: 40 mg Documented by: Bismuth Subsalicylate (Bismuth Subsalicylate Susp 30 Ml/524 Mg Btl) 30 ml PO Q30MIN PRN PRN Reason: UPSET STOMACH Last Admin: 11/11/19 15:07 Dose: 30 ml Documented by: Carvedilol (Coreg) 12.5 mg PO BIDWM [facility] Last Admin: 11/13/19 08:57 Dose: 12.5 mg Documented by: Chlordiazepoxide HCl (Librium) 5 mg PO BID [facility] Last Admin: 11/13/19 08:57 Dose: 5 mg Documented by: Cholecalciferol (Vitamin D) 1,000 unit PO DAILY [facility] Last Admin: 11/13/19 09:00 Dose: 1,000 unit Documented by: Clopidogrel Bisulfate (Plavix) 75 mg PO DAILY [facility] Last Admin: 11/13/19 08:57 Dose: 75 mg Documented by: Ferrous Sulfate (Ferrous Sulfate) 324 mg PO DAILY [facility] Last Admin: 11/13/19 08:57 Dose: 324 mg Documented by: CEFTRIAXONE/D5W 1 GM PREMIX (Rocephin 1 Gm/50 Ml D5w) 1 gm in 50 mls @ 75 mls/hr IV DAILY [facility] Stop: 11/16/19 10:00 Last Admin: 11/13/19 08:56 Dose: 75 mls/hr Documented by: Latanoprost (Latanoprost 2.5 Ml Opth Luisa) 1 drop EACHEYE BEDTIME [facility] Last Admin: 11/12/19 20:21 Dose: 1 drop Documented by: Montelukast Sodium (Singulair) 10 mg PO DAILY [facility] Last Admin: 11/13/19 08:58 Dose: 10 mg Documented by: Non-Formulary Medication (Brimonidine-Timolol [Combigan]) 1 drop EACHEYE 0800,1700 [facility] Last Admin: 11/13/19 09:04 Dose: 1 drop Documented by: Non-Formulary Medication (Brinzolamide [Azopt]) 1 drop EACHEYE 0800,1200,1700 [facility] Last Admin: 11/13/19 13:15 Dose: 1 drop Documented by: Non-Formulary Medication (Peg 400-Propylene Glycol [Systane Ultra]) 1 drop EACHEYE PRN PRN PRN Reason: dry eyes Last Admin: 11/13/19 09:04 Dose: 1 drop Documented by: Non-Formulary Medication (Multivitamin With Minerals) 1 tab PO BID [facility] Last Admin: 11/13/19 09:00 Dose: 1 tab Documented by: Omeprazole (Prilosec) 20 mg PO QDAC PRN PRN Reason: HEARTBURN Pantoprazole Sodium (Pantoprazole Sodium 40 Mg Tablet.Dr) 40 mg PO QDAC [facility] Last Admin: 11/13/19 05:31 Dose: 40 mg Documented by: Prednisone (Prednisone 20 Mg Tablet) 20 mg PO DAILYWM [facility] Last Admin: 11/13/19 08:57 Dose: 20 mg Documented by: Sodium Chloride (0.9% Sodium Chloride 10 Ml Disp.Syrin) 1 syr IVF Q8HR [facility] Last Admin: 11/13/19 05:32 Dose: 1 syr Documented by: Sodium Chloride (0.9% Sodium Chloride 10 Ml Disp.Syrin) 1 syr IVF PRN PRN PRN Reason: MAINTAIN IV PATENCY Last Admin: 11/12/19 08:49 Dose: 1 syr Documented by: Vitamin E (Vitamin E) 400 unit PO DAILY [facility] Last Admin: 11/13/19 08:57 Dose: 400 unit Documented by: ALLERGIES brimonidine [From Alphagan P] Adverse Reaction (Verified 11/09/19 16:09) METHAPLAMED Adverse Reaction (Uncoded 11/09/19 16:10) DISCONTINUED MEDICATIONS NONE NEW PRESCRIPTIONS: NONE SMOKING: NON- APPLICABLE LAB REVIEW: 11/13/19 05:15 11/13/19 05:15 11/13/19 05:15: Sodium 135.4, Potassium 3.50, Chloride 100.0, Carbon Dioxide 33.6 H, Anion Gap 5.30, BUN 16.0, Creatinine 0.66, Estimated GFR (MDRD) 84.00, BUN/Creatinine Ratio 24.24, Glucose 91.7, Calcium 8.71, Total Bilirubin 0.44, AST 30.5, ALT 19.0, Alkaline Phosphatase 68.8, Total Protein 6.10 L, Albumin 3.05 L, Globulin 3.05, Albumin/Globulin Ratio 1.00 11/13/19 05:15: WBC 8.88, RBC 4.25, Hgb 12.6, Hct 39.1, MCV 92.0, MCH 29.6, MCHC 32.2, RDW Coeff of Alyssa 15.6 H, Plt Count 283, Immature Gran % (Auto) 0.3, Neut % (Auto) 77.8 H, Lymph % (Auto) 11.3, [place] % (Auto) 10.4 H, Eos % (Auto) 0.1, Baso % (Auto) 0.1, Neut # (Auto) 6.9, Lymph # (Auto) 1.0, [place] # (Auto) 0.9, Eos # (Auto) 0.0, Baso # (Auto) 0.0, Immature Gran # (Auto) 0.0 PLAN: DISCHARGE TO [facility] 2019 CONTINUE SAME MEDICATIONS CBC AND CMP EVERY 3 DAYS, START 11/16/2019 WEIGH EVERY 3 DAYS, START 11/16/2019 NO TELEMETRY V/S EVERY 12 HOURS ACTIVITY: UP WITH ASSIST OF ONE AND WALKER PT AND OT TO FOLLOW UP DIET: MECHANICAL SOFT WITH NECTAR THICKENED LIQUIDS BRIDGE MECHANIC EVAL AND TREAT DR. ZAPATA/BERNIE PHELPS APRN/ SASHA DUNNE APRN WILL SEE ON ROUNDS CODE STATUS: DO NOT INTUBATE, CPR ONLY MRS HINES IS ALERT AND ORIENTED X 4. SHE REMAINS PLEASANT. SHE HAS BEEN TREATED FOR PNEUMONIA AND WEAKNESS. SHE IS BREATHING BETTER AND NOW HER LUNG SOUNDS ARE COURSE. SHE IS COUGHING UP CLEAR SPUTUM NOW. SHE DOES GET OUT OF BREATH WITH MINIMAL EXERTION. SHE HAS BEEN UTILIZING OXYGEN AT 2 L/M PER N/C. NEEDS TO CONTINUE IV ANTIBIOTICS DUE TO SPUTUM C/S REPORTING SERRATIA MARCESCENS AND WILL SWING FOR THIS PURPOSE. SHE REMAINS WEAK BUT ABLE TO GET UP WITH ASSIST OF ONE AND AT TIMES SBA. SHE DOES REQUIRE A WHEELED WALKER. WILL CONTINUE PHYSICAL THERAPY. HAS HAD PROBLEMS COUGHING WITH MEALS AND SWALLOWING DIFFICULTY. BRIDGE MECHANIC DID EVAL AND CHANGED HER DIET TO MECHANICAL SOFT AND TO NECTAR THICK LIQUIDS. NUTRITIONAL AND FLUID INTAKE HAS BEEN POOR TO FAIR. SHE HAS BEEN CONSUMING ENSURE 5 OZ TID. SHE WEARS PADS DUE TO DRIBBLING OF URINE, CONTINENT OF BOWELS. LAST BM 11/13/2019. SHE IS PALE AND HER HEELS HAVE BEEN RED. CONTINUE TO ELEVATE HER FEET ON PILLOWS. SHE HAS A SMALL SKIN TEAR TO HER LT UPPER ARM. NUTRITIONAL AND FLUID INTAKE HAS BEEN FAIR. DISCHARGE TO SWING BED. HAS FAMILY THAT VISITS FREQUENTLY. MD BERNIE HINES APRN ALYCE HANNAN, APRN
--- NOTE | 2019-11-16 08:55 | DS ---
DATE OF SERVICE: 11/13/2019 FINAL DIAGNOSIS: BILATERAL PNEUMONIA- SERRATIA MARCESCENS OROPHARYNGEAL DYSPHAGIA CHRONIC ANEMIA CORONARY ARTERY DISEASE SEVERE PERIPHERAL ARTERIAL DISEASE GENERALIZED WEAKNESS DIFFICULTY WALKING BALANCE IMPAIRED FALLS MEDICAL HISTORY: GENERALIZED WEAKNESS DIZZINESS ANEMIA HYPERTENSION ALLERGIC RHINITIS DIABETES MELLITUS TYPE 2 ( A1C -5.5 ON 07/14) CORONARY ARTERY DISEASE PERIPHERAL ARTERY DISEASE CERVICAL RADICULOPATHY COPD DYSLIPIDEMIA FORGETFULNESS GLAUCOMA - SEES DR. JOE POLYARTHRITIS PULMONARY NODULES, SEES DR. ASENCIO CHRONIC ANEMIA - HAS REPORTED UNABLE TO TAKE IRON IN THE PAST PROCEDURES: CABG FEM/POP BYPASS - DR. TAN BILATERAL CAROTID ENDARTERECTOMY, 1999 LAST VITALS: Temp Pulse Resp BP Pulse Ox 98.0 F 61 16 162/70 H 98 11/13/19 05:49 11/13/19 05:49 11/13/19 08:00 11/13/19 05:49 11/13/19 14:00 DISCHARGE INSTRUCTIONS: DISCHARGE TO SWING BED @ [facility] 2019. CONTINUE SAME MEDICATIONS, CBC AND CMP EVERY 3 DAYS, START 11/16/2019, WEIGH EVERY 3 DAYS, STAR T 11/16/2019, NO TELEMETRY and V/S EVERY [address] HAWKINS/BERNIE PHELPS APRN/ SASHA DUNNE APRN WILL SEE ON ROUNDS. CODE STATUS: DO NOT INTUBATE, CPR ONLY. TAKE THESE MEDICATIONS AT HOME: Albuterol/Ipratropium (Ipratropium/Albuterol Vial.Neb) 3 ml NEB RTTID [facility] Last Admin: 11/13/19 05:18 Dose: 3 ml Documented by: Amlodipine Besylate (Amlodipine Besylate 5 Mg Tablet) 2.5 mg PO DAILY [facility] -- ( NEW) Last Admin: 11/13/19 08:58 Dose: 2.5 mg Documented by: Aspirin (Aspirin Ec) 81 mg PO DAILYWM [facility] Last Admin: 11/13/19 08:57 Dose: 81 mg Documented by: Atorvastatin Calcium (Lipitor) 40 mg PO DAILY [facility] Last Admin: 11/13/19 08:57 Dose: 40 mg Documented by: Bismuth Subsalicylate (Bismuth Subsalicylate Susp 30 Ml/524 Mg Btl) 30 ml PO Q30MIN PRN PRN Reason: UPSET STOMACH Last Admin: 11/11/19 15:07 Dose: 30 ml Documented by: Carvedilol (Coreg) 12.5 mg PO BIDWM [facility] Last Admin: 11/13/19 08:57 Dose: 12.5 mg Documented by: Chlordiazepoxide HCl (Librium) 5 mg PO BID [facility] Last Admin: 11/13/19 08:57 Dose: 5 mg Documented by: Cholecalciferol (Vitamin D) 1,000 unit PO DAILY [facility] Last Admin: 11/13/19 09:00 Dose: 1,000 unit Documented by: Clopidogrel Bisulfate (Plavix) 75 mg PO DAILY [facility] Last Admin: 11/13/19 08:57 Dose: 75 mg Documented by: Ferrous Sulfate (Ferrous Sulfate) 324 mg PO DAILY [facility] Last Admin: 11/13/19 08:57 Dose: 324 mg Documented by: CEFTRIAXONE/D5W 1 GM PREMIX (Rocephin 1 Gm/50 Ml D5w) 1 gm in 50 mls @ 75 mls/hr IV DAILY [facility] Stop: 11/16/19 10:00 Last Admin: 11/13/19 08:56 Dose: 75 mls/hr Documented by: Latanoprost (Latanoprost 2.5 Ml Opth Luisa) 1 drop EACHEYE BEDTIME [facility] Last Admin: 11/12/19 20:21 Dose: 1 drop Documented by: Montelukast Sodium (Singulair) 10 mg PO DAILY [facility] Last Admin: 11/13/19 08:58 Dose: 10 mg Documented by: Non-Formulary Medication (Brimonidine-Timolol [Combigan]) 1 drop EACHEYE 0800,1700 [facility] Last Admin: 11/13/19 09:04 Dose: 1 drop Documented by: Non-Formulary Medication (Brinzolamide [Azopt]) 1 drop EACHEYE 0800,1200,1700 [facility] Last Admin: 11/13/19 13:15 Dose: 1 drop Documented by: Non-Formulary Medication (Peg 400-Propylene Glycol [Systane Ultra]) 1 drop EACHEYE PRN PRN PRN Reason: dry eyes Last Admin: 11/13/19 09:04 Dose: 1 drop Documented by: Non-Formulary Medication (Multivitamin With Minerals) 1 tab PO BID [facility] Last Admin: 11/13/19 09:00 Dose: 1 tab Documented by: Omeprazole (Prilosec) 20 mg PO QDAC PRN PRN Reason: HEARTBURN Pantoprazole Sodium (Pantoprazole Sodium 40 Mg Tablet.) 40 mg PO QDAC [facility] Last Admin: 11/13/19 05:31 Dose: 40 mg Documented by: Prednisone (Prednisone 20 Mg Tablet) 20 mg PO DAILYWM [facility] Last Admin: 11/13/19 08:57 Dose: 20 mg Documented by: Sodium Chloride (0.9% Sodium Chloride 10 Ml Disp.Syrin) 1 syr IVF Q8HR [facility] Last Admin: 11/13/19 05:32 Dose: 1 syr Documented by: Sodium Chloride (0.9% Sodium Chloride 10 Ml Disp.Syrin) 1 syr IVF PRN PRN PRN Reason: MAINTAIN IV PATENCY Last Admin: 11/12/19 08:49 Dose: 1 syr Documented by: Vitamin E (Vitamin E) 400 unit PO DAILY [facility] Last Admin: 11/13/19 08:57 Dose: 400 unit Documented by: ALLERGIES: brimonidine [From Alphagan P] Adverse Reaction (Verified 11/09/19 16:09) METHAPLAMED Adverse Reaction (Uncoded 11/09/19 16:10) DISCONTINUED MEDICATIONS: NONE NEW PRESCRIPTIONS: NONE SMOKING: NON- APPLICABLE LAB REVIEW: 11/13/19 05:15 11/13/19 05:15 11/13/19 05:15: Sodium 135.4, Potassium 3.50, Chloride 100.0, Carbon Dioxide 33.6 H, Anion Gap 5.30, BUN 16.0, Creatinine 0.66, Estimated GFR (MDRD) 84.00, BUN/Creatinine Ratio 24.24, Glucose 91.7, Calcium 8.71, Total Bilirubin 0.44, AST 30.5, ALT 19.0, Alkaline Phosphatase 68.8, Total Protein 6.10 L, Albumin 3.05 L, Globulin 3.05, Albumin/Globulin Ratio 1.00 11/13/19 05:15: WBC 8.88, RBC 4.25, Hgb 12.6, Hct 39.1, MCV 92.0, MCH 29.6, MCHC 32.2, RDW Coeff of Alyssa 15.6 H, Plt Count 283, Immature Gran % (Auto) 0.3, Neut % (Auto) 77.8 H, Lymph % (Auto) 11.3, [place] % (Auto) 10.4 H, Eos % (Auto) 0.1, Baso % (Auto) 0.1, Neut # (Auto) 6.9, Lymph # (Auto) 1.0, [place] # (Auto) 0.9, Eos # (Auto) 0.0, Baso # (Auto) 0.0, Immature Gran # (Auto) 0.0 ACTIVITY: UP WITH ASSIST OF ONE AND WALKER PT AND OT TO FOLLOW UP DIET: MECHANICAL SOFT WITH NECTAR THICKENED LIQUIDS COLLECTION SYSTEMS MODELER EVAL AND TREAT HOSPITAL COURSE: 89 year old white female presented initially to the emergency room with shortness of breath and cough. Chest x-ray showed stable appearance of the chest suggesting chronic air way inflammation with possible superimposed pneumonia, reticulonodular opacities throughout both lungs most notably in the right upper and left lower. The patient was admitted with bilateral pneumonia, shortness of breath, chronic anemia, coronary artery disease, severe PAD, generalized weakness, difficulty walking, balance impaired and falls. She was initially tested for COVID which during her hospital stay came back negative. She was started on admission on Zithromax and Rocephin IV. She was also given steroids and inhalers. At one point her hgb dropped to 7.4. She was symptomatic with her anemia. She was transfused two units of packed red blood cells. Blood counts have been stable since. After COVID test was resulted as negative. DUO NEBS were started. IV antibiotics were continued. She has slowly improved throughout her hospital stay. She did have some episodes with difficulty swallowing and possibly choking. Speech was consulted for swallow evaluation. Diet was adjusted per speech therapy recommendations. The patient also has been receiving physical therapy. She is getting up but usually with the assist of one. She continues to have cough and weakness with sputum culture resulting as Serratia Marcescens. She will require continued IV antibiotic therapy and therefore would benefit greatly from swing bed placement. The patient is candidate and will be discharged to swing bed today. The patient was seen and examined with Dr. Hawkins and plan was discussed. TIME SPENT: More than 60 minutes. CHIDI
--- NOTE | 2019-11-16 09:50 | PN ---
DATE OF SERVICE: 11/10/2019 SUBJECTIVE: The patient was seen and examined with the Nurse Practitioner. The patient's condition is improving. Her appetite has improved. PHYSICAL EXAMINATION: HEENT: Head normocephalic, atraumatic. Eyes: Extraocular muscles are intact. Pupils are equal, round and reactive to light and accommodation. Ears: No lesions. Nose appeared normal. Throat: No exudate or erythema. NECK: Supple. No JVD, no carotid bruit. No lymphadenopathy or thyromegaly. LUNGS: Less wheezing. More air entry. Clear to auscultation. Percussion note normal. Chest symmetrical. HEART: S1, S2, no S3. No murmurs. No cyanosis or clubbing. No ascites. Pulses: Dorsalis pedis and posterior tibial pulses +1 to +2 bilaterally. ABDOMEN: Soft. Nontender. Bowel sounds active. No CVA tenderness. No mass felt. EXTREMITIES: No edema. Full range of motion of all extremities, equal. NEUROLOGIC: No focal deficit. Cranial nerves II through XII are grossly intact. No headache, no double vision or headache. SKIN: Not dry. Intact. Turgor - normal. LYMPHATIC: No palpable lymph nodes/no lymphedema. MUSCULOSKELETAL: Normal joints with no swelling. Muscle tone is normal. CONDITION: Stable. History of peripheral arterial disease with comorbidities with chronic lung disease. COVID pending. TIME SPENT: More than 30 minutes. Plan and coordination of the patient's care discussed in the presence of nurse. CHIDI
--- NOTE | 2019-11-16 13:00 | PN ---
DATE OF SERVICE: 11/12/2019 SUBJECTIVE: The patient was seen and examined with the Nurse Practitioner. The patient's condition is stable. She is coughing much less. Clinically the pneumonia seems to be resolving. Cardiovascular status is stable. TIME SPENT: More than 30 minutes. Plan and coordination of the patient's care discussed in the presence of nurse. CHIDI
== END 2019-11-13 15:43 | disposition swing bed (61) | DRG 193 ==
LOC: ED 09:48 → SCU 13:30 → MEDSURG B 11-10 20:23
PROVIDERS: ADMIT Internal Medicine; ATTEND Internal Medicine
DX: R26.2 Difficulty in walking, not elsewhere classified; M62.81 Muscle weakness (generalized); D64.9 Anemia, unspecified; R29.6 Repeated falls; R26.81 Unsteadiness on feet; I25.810 Atherosclerosis of coronary artery bypass graft(s) without angina pectoris; J18.9 Pneumonia, unspecified organism; R91.1 Solitary pulmonary nodule; E78.5 Hyperlipidemia, unspecified; Z51.81 Encounter for therapeutic drug level monitoring; J44.0 Chronic obstructive pulmonary disease with (acute) lower respiratory infection; K21.9 Gastro-esophageal reflux disease without esophagitis; Z20.828 Contact with and (suspected) exposure to other viral communicable diseases; Z79.899 Other long term (current) drug therapy; R13.12 Dysphagia, oropharyngeal phase; M13.0 Polyarthritis, unspecified; I73.9 Peripheral vascular disease, unspecified; A41.53 Sepsis due to Serratia; R06.02 Shortness of breath; I10 Essential (primary) hypertension

== ENCOUNTER 2020-01-14 14:01 | Inpatient (IN) ==
--- NOTE | 2020-01-14 16:08 | ED.PDOC ---
General ED Provider: Dr. JO-ANN HOOKS Chief Complaint: Weakness Stated Complaint: Weakness, difficulty with ambulation exertional dyspnea Time Seen by Physician: 14:30 Mode of Arrival: Walk-In Information Source: Patient Exam Limitations: No limitations Primary Care Provider: RANDY ZAPATA Nursing and Triage Documentation Reviewed and Agree: Yes Does patient meet sepsis criteria?: No System Inflammatory Response Syndrome: Not Applicable Sepsis Protocol: For patient's 13 years and over: Temp is 96.8 and below OR 101 and greater Pulse >90 BPM Resp >20/minute Acutely Altered Mental Status Are patient's symptoms suggestive of a new infection, such as: -Pneumonia -Skin, Soft Tissue -Endocarditis -UTI -Bone, Joint Infection -Implantable Device -Acute Abdominal Infection -Wound Infection -Meningitis -Blood Stream Catheter Infection -Unknown [facility] Medical History (Updated 11/14/19 @ 10:36 by KEITH BARR) COPD (chronic obstructive pulmonary disease) Coronary artery disease Degenerative disk disease Depression Dyslipidemia GERD (gastroesophageal reflux disease) Glaucoma Hiatal hernia Hypertension Hypertension Iron deficiency anemia Osteoarthritis Peripheral artery disease Family History (Updated 11/09/19 @ 14:49 by FESTUS MCKEON RN) Mother Heart attack UNCLE Heart attack BROTHER Heart problem Social History Smoking and tobacco status: Former smoker Surgical History (Updated 11/10/19 @ 07:48 by JAVON KIRAN) History of bilateral carotid endarterectomy History of femoropopliteal bypass Hx of CABG Female Reproductive History Menstrual Hx Hysterectomy: Yes Hx Tubal Ligation: No Course Course Vital Signs: Temp Pulse Resp BP Pulse Ox 01/14/20 14:01 96.4 F L 88 20 161/66 H 96 Discharge Plan Discharge Prescriptions: No Action latanoprost 1 DROP drops 1 drp ophthalmic (eye) BEDTIME RF: 0 carvedilol 6.25 MG tablet 12.5 mg PO BID RF: 0 Azopt 15 ML drops,suspension 1 drp ophthalmic (eye) 0800,1200,1700 RF: 0 aspirin 81 MG tablet,delayed release (DR/EC) 1 tab PO DAILY RF: 0 montelukast [Singulair] 10 MG tablet 10 mg PO DAILY RF: 0 cholecalciferol (vitamin D3) [Vitamin D3] 1,000 UNIT capsule 1 cap PO DAILY RF: 0 omeprazole magnesium [Prilosec OTC] 20 MG tablet,delayed release (DR/EC) 20 mg PO DAILY PRN (Reason: Heartburn) RF: 0 Combigan 10 ML drops 1 drp ophthalmic (eye) 0800,1700 RF: 0 ferrous sulfate [Iron (ferrous sulfate)] 325 mg (65 mg iron) Tablet 325 mg PO DAILY RF: 0 bismuth subsalicylate [Pepto-Bismol] 262 mg/15 mL Suspension 524 mg PO Q30-60M PRN (Reason: UPSET STOMACH) RF: 0 ICaps Tablet Extended Release 1 tab PO BID RF: 0 vitamin E (dl, acetate) 400 unit Capsule 400 unit PO DAILY RF: 0 clopidogrel [Plavix] 75 MG tablet 75 mg PO DAILY RF: 0 Systane Ultra 10 ML drops 1 drp ophthalmic (eye) PRN PRN (Reason: DRY EYES) RF: 0 atorvastatin 40 MG tablet 40 mg PO DAILY RF: 0 chlordiazepoxide HCl 5 MG capsule 5 mg PO BID RF: 0 amlodipine [Norvasc] 2.5 mg Tablet 2.5 mg PO BEDTIME Qty: 30 RF: 1 nystatin 100,000 unit/mL Suspension 100,000 unit PO TID Qty: 60 RF: 0 ED Provider: JO-ANN HOOKS Physician Progress Note: []
[2020-01-14] MEDS ORDERED: ROCEPHIN 1 GM/50 ML D5W 1 GM/50 ML BAG IV STA (16:11)
[2020-01-14] MEDS ORDERED: SOLU-MEDROL 125 MG IVP STA (16:12)
[2020-01-14] MEDS ORDERED: SODIUM CHLORIDE 1,000 ML IV SCH (16:30)
[2020-01-14 16:47] LABS: BASOPHILS # (AUTO) 0.1 K/uL (0-0.2); BASOPHILS % (AUTO) 0.8 % (0.0-3.0); EOSINOPHILS # (AUTO) 0.1 K/ul (0.0-0.7); EOSINOPHILS % (AUTO) 1.5 % (0.0-7.0); HEMOGLOBIN 9.3 g/dl (12.0-16.0); IMMATURE GRANULOCYTE % (AUTO) 0.3 % (0.0-5.0); LYMPHOCYTES % (AUTO) 25.7 (10.0-50.0); MEAN CORPUSCULAR HEMOGLOBIN 28.6 pg (27.0-31.0); MEAN CORPUSCULAR VOLUME 92.3 fl (81.0-99.0); MONOCYTES # (AUTO) 0.7 K/uL (0.4-2.0); MONOCYTES % (AUTO) 8.2 (0-10); NEUTROPHILS % (AUTO) 63.5 % (42.2-75.2); PLATELET COUNT 376 10^3/uL (140-440); RDW COEFFICIENT OF VARIATION 17.5 % (11.6-14.8); RED BLOOD COUNT 3.25 10^6/ul (4.20-5.40); WHITE BLOOD COUNT 7.91 K/ul (4.6-10.2)
[2020-01-14 16:57] LABS: ALANINE AMINOTRANSFERASE 19.7 U/L (0-35); ALBUMIN 3.73 g/dL (3.5-5.0); ALKALINE PHOSPHATASE 75.7 U/L (53-141); ASPARTATE AMINO TRANSFERASE 37.3 U/L (14-36); BILIRUBIN,TOTAL 0.27 mg/dL (0.2-1.3); BLOOD UREA NITROGEN 18.7 mg/dL (7-17); CALCIUM 9.15 mg/dL (8.4-10.2); CARBON DIOXIDE 29.5 mmol/L (22-30.0); CHLORIDE 101.5 mmol/L (98-107); CREATININE 0.86 mg/dL (0.60-1.30); GLUCOSE 84.2 mg/dL (74-106); POTASSIUM 4.31 mmol/L (3.5-5.1); TOTAL PROTEIN 6.98 g/dL (6.3-8.2)
[2020-01-14 17:08] LABS: TROPONIN I 0.027 ng/ml (0.0000-0.120)
[2020-01-14 17:57] LABS: BILIRUBIN,URINE Negative (NEGATIVE); CLARITY,URINE Clear (CLEAR); COLOR,URINE Yellow (YELLOW); GLUCOSE, URINE (UA) Negative (NEGATIVE); KETONES,URINE Negative (NEGATIVE); LEUKOCYTE ESTERASE ,URINE Negative (NEGATIVE); NITRITE,URINE Negative (NEGATIVE); PH,URINE 7.5 (5-9); PROTEIN,URINE Negative (NEGATIVE); URINE, BLOOD Negative (NEGATIVE); UROBILINOGEN,URINE 0.2 (0.2)
[2020-01-14 18:12] VITALS: BMI 16.9
[2020-01-14] MEDS ORDERED: PRILOSEC PO PRN (19:51)
[2020-01-14] MEDS ORDERED: ARTIFICIAL TEARS DROPS OP PRN (19:56)
[2020-01-14] MEDS: XALATAN EACHEYE SCH (20:49)
[2020-01-14] MEDS: LIBRIUM PO SCH (20:49)
[2020-01-14] MEDS: COREG PO SCH (20:50)
[2020-01-14] MEDS ORDERED: PLAVIX PO SCH (21:00)
[2020-01-14] MEDS ORDERED: LIPITOR PO SCH (21:00)
[2020-01-15] MEDS: SODIUM CHLORIDE 1,000 ML IV SCH ×3 (00:33→09:38)
[2020-01-15 05:44] LABS: BASOPHILS % (AUTO) 0.2 % (0.0-3.0); HEMOGLOBIN 8.3 g/dl (12.0-16.0); IMMATURE GRANULOCYTE % (AUTO) 0.2 % (0.0-5.0); LYMPHOCYTES # (AUTO) 0.5 K/uL (0.60-3.4); LYMPHOCYTES % (AUTO) 10.2 (10.0-50.0); MEAN CORPUSCULAR HEMOGLOBIN 28.5 pg (27.0-31.0); MEAN CORPUSCULAR HGB CONC 30.7 (31.8-35.4); MEAN CORPUSCULAR VOLUME 92.8 fl (81.0-99.0); MONOCYTES # (AUTO) 0.1 K/uL (0.4-2.0); MONOCYTES % (AUTO) 1.5 (0-10); NEUTROPHILS # (AUTO) 4.1 K/ul (2.0-6.9); NEUTROPHILS % (AUTO) 87.9 % (42.2-75.2); PLATELET COUNT 328 10^3/uL (140-440); RDW COEFFICIENT OF VARIATION 17.3 % (11.6-14.8); RED BLOOD COUNT 2.91 10^6/ul (4.20-5.40); WHITE BLOOD COUNT 4.71 K/ul (4.6-10.2)
[2020-01-15 05:57] LABS: ALANINE AMINOTRANSFERASE 16.1 U/L (0-35); ALBUMIN 3.1 g/dL (3.5-5.0); ALKALINE PHOSPHATASE 58.8 U/L (53-141); ASPARTATE AMINO TRANSFERASE 28.5 U/L (14-36); BILIRUBIN,TOTAL 0.21 mg/dL (0.2-1.3); BLOOD UREA NITROGEN 20.2 mg/dL (7-17); CALCIUM 8.43 mg/dL (8.4-10.2); CARBON DIOXIDE 25.2 mmol/L (22-30.0); CHLORIDE 105.4 mmol/L (98-107); CREATININE 0.68 mg/dL (0.60-1.30); GLUCOSE 149.2 mg/dL (74-106); POTASSIUM 4.34 mmol/L (3.5-5.1); SODIUM 135.7 mmol/L (134.5-145); TOTAL PROTEIN 6.07 g/dL (6.3-8.2)
[2020-01-15] MEDS ORDERED: TIMOPTIC 0.5% OPTH EACHEYE SCH (08:00)
[2020-01-15] MEDS ORDERED: PLAVIX PO SCH ×2 (09:00→21:00)
[2020-01-15] MEDS ORDERED: LIPITOR PO SCH (09:00)
[2020-01-15] MEDS ORDERED: VISTARIL INJ IM PRN (09:12)
[2020-01-15] MEDS ORDERED: NITROSTAT SL PRN (09:12)
[2020-01-15] MEDS ORDERED: TYLENOL PO PRN (09:12)
[2020-01-15] MEDS ORDERED: ATROPINE SULFATE PFS IVP PRN (09:12)
[2020-01-15] MEDS: DECADRON IM SCH (09:33)
[2020-01-15] MEDS: ASPIRIN EC PO SCH (09:34)
[2020-01-15] MEDS: FERROUS SULFATE PO SCH (09:34)
[2020-01-15] MEDS: LIBRIUM PO SCH ×2 (09:34→21:21)
[2020-01-15] MEDS: VITAMIN E PO SCH (09:34)
[2020-01-15] MEDS: COREG PO SCH ×2 (09:35→21:19)
[2020-01-15] MEDS: SINGULAIR PO SCH (09:35)
[2020-01-15] MEDS: VITAMIN D PO SCH (09:35)
[2020-01-15] MEDS: ROCEPHIN 1 GM/50 ML D5W 1 GM/50 ML BAG IV SCH (09:36)
[2020-01-15] MEDS: BRINZOLAMIDE EACHEYE SCH ×4 (09:37→16:30)
[2020-01-15 09:50] LABS: CREATINE KINASE 20.5 U/L (30-135)
[2020-01-15 10:03] LABS: TROPONIN I 0.016 ng/ml (0.0000-0.120)
[2020-01-15] MEDS: BRIMONIDINE TARTRATE 0.2% OPTH SOL EACHEYE SCH ×2 (10:07→10:14)
[2020-01-15] MEDS: NON-FORMULARY MEDICATION (Brimonidine-Timolol [Combigan] 0.2-0.5 % Drops) EACHEYE SCH ×2 (10:28→16:30)
[2020-01-15] MEDS: NON-FORMULARY MEDICATION (Vit C,E-Zn-Coppr-Lutein-Zeaxan [Preservision Areds-2] 250-200-40 PO SCH ×2 (10:28→21:22)
--- NOTE | 2020-01-15 10:43 | PCM.PROG ---
Attending Provider: ATTENDING PROVIDER: Dr. RANDY ZAPATA DATE OF SERVICE: 01/15/20 SUBJECTIVE: This 89 year old /WHITE F was hospitalized 01/14/20 with weakness, dehydration and pneumonia. REVIEW OF SYSTEMS: CONSTITUTIONAL: No night sweats. No fatigue, malaise, lethargy. No fever or chills. Complaining of weakness. HEENT: Eyes: No visual changes. No eye pain. No eye discharge. ENT: No runny nose. No epistaxis. No sinus pain. No odynophagia. No congestion. RESPIRATORY: No cough, no congestion. No hemoptysis. No shortness of breath. CARDIOVASCULAR: No angina symptoms. No CHF symptoms. No atypical chest pain for CAD. No palpitations. No orthopnea.. GASTROINTESTINAL: No abdominal pain. No nausea or vomiting. No diarrhea or constipation. No hematemesis. No hematochezia. Poor appetite. GENITOURINARY: No urgency. No frequency. No dysuria. No hematuria. No obstruct harpreet symptoms. No discharge. No pain. No significant abnormal bleeding. MUSCULOSKELETAL: No musculoskeletal pain; no joint swelling. NEUROLOGICAL: Awake, alert, oriented to time, place and person. No headache. No neck pain. No syncope. No seizures. No dizziness. PSYCHIATRIC: Not anxious. No depression. No suicidal thoughts. No homicidal thoughts. SKIN: No rash. No lesions. No wounds. ENDOCRINE: No unexplained weight loss. No weight gain. HEMATOLOGIC/LYMPHATIC: No anemia. No purpura. No petechiae. No prolonged or excessive bleeding. No palpable lymph nodes. PHYSICAL EXAMINATION: GENERAL: The patient is awake, alert and oriented, lying in bed in no distress. VITAL SIGNS: Temperature 97.6 F, Pulse 69, Respiratory Rate 20, BP 172/75, Pulse Ox 96% HEENT: Head normocephalic, atraumatic. Eyes: Extraocular muscles are intact. Pupils are equal, round and reactive to light and accommodation. Ears: No lesions. Nose appeared normal. Throat: No exudate or erythema. NECK: Supple. No JVD, no carotid bruit. No lymphadenopathy or thyromegaly. LUNGS: Bilateral wheezing. Clear to auscultation. Percussion note normal. Chest symmetrical. HEART: S1, S2, no S3. No murmurs. No cyanosis or clubbing. No ascites. Pulses: Dorsalis pedis and posterior tibial pulses +1 to +2 both sides. ABDOMEN: Soft. Non-tender. Bowel sounds active. No CVA tenderness. No mass felt. EXTREMITIES: No edema. Full range of motion of all extremities, equal. NEUROLOGIC: No focal deficit. Cranial nerves II through XII are grossly intact. No headache, no double vision or headache. SKIN: Warm and dry. Intact. Turgor-normal. LYMPHATIC: No palpable lymph nodes/no lymphedema. MUSCULOSKELETAL: Normal joints with no swelling. Muscle tone is normal. LAB REVIEW: 01/15/20 05:20 01/15/20 05:20 01/15/20 05:20: Sodium 135.7, Potassium 4.34, Chloride 105.4, Carbon Dioxide 25.2, Anion Gap 9.44, BUN 20.2 H, Creatinine 0.68, Estimated GFR (MDRD) 81.00, BUN/Creatinine Ratio 29.70, Glucose 149.2 H D, Calcium 8.43, Total Bilirubin 0.21, AST 28.5, ALT 16.1, Alkaline Phosphatase 58.8, Total Protein 6.07 L, Albumin 3.10 L, Globulin 2.97, Albumin/Globulin Ratio 1.04 01/15/20 05:20: WBC 4.71, RBC 2.91 L, Hgb 8.3 L, Hct 27.0 L, MCV 92.8, MCH 28.5, MCHC 30.7 L, RDW Coeff of Alyssa 17.3 H, Plt Count 328, Immature Gran % (Auto) 0.2, Neut % (Auto) 87.9 H, Lymph % (Auto) 10.2, Webb % (Auto) 1.5, Eos % (Auto) 0.0, Baso % (Auto) 0.2, Neut # (Auto) 4.1, Lymph # (Auto) 0.5 L, Webb # (Auto) 0.1 L, Eos # (Auto) 0.0, Baso # (Auto) 0.0, Immature Gran # (Auto) 0.0 01/14/20 20:00: Adenovirus (PCR) Not detected, B. pertussis DNA (PCR) Not detected, B.parapertussis DNA PCR Detected H, C. pneumoniae DNA (PCR) Not detected, Coronavirus OC43 (PCR) Not detected, Coronavirus HKU1 (PCR) Not detected, Coronavirus 229E (PCR) Not detected, Coronavirus NL63 (PCR) Not detected, Human Metapneumovir PCR Not detected, Influenza B (RT-PCR) Not detected, M. pneumoniae (PCR) Not detected, Parainfluenza 1 (PCR) Not detected, Parainfluenza 2 (PCR) Not detected, Parainfluenza 3 (PCR) Not detected, Parainfluenza 4 (PCR) Not detected, RSV (PCR) Not detected, Entero/Rhino (PCR) Not detected, SARS-CoV-2 (PCR) Not detected 01/14/20 17:51: Urine Color Yellow, Urine Clarity Clear, Urine pH 7.5, Ur Specific Logan 1.020, Urine Protein Negative, Urine Glucose (UA) Negative, Urine Ketones Negative, Urine Blood Negative, Urine Nitrite Negative, Urine Bilirubin Negative, Urine Urobilinogen 0.2, Ur Leukocyte Esterase Negative 01/14/20 16:45: Procalcitonin < 0.05 01/14/20 16:39: Lactic Acid 0.60 L 01/14/20 16:39: WBC 7.91, RBC 3.25 L, Hgb 9.3 L, Hct 30.0 L, MCV 92.3, MCH 28.6, MCHC 31.0 L, RDW Coeff of Alyssa 17.5 H, Plt Count 376, Immature Gran % (Auto) 0.3, Neut % (Auto) 63.5, Lymph % (Auto) 25.7, Webb % (Auto) 8.2, Eos % (Auto) 1.5, Baso % (Auto) 0.8, Neut # (Auto) 5.0, Lymph # (Auto) 2.0, Webb # (Auto) 0.7, Eos # (Auto) 0.1, Baso # (Auto) 0.1, Immature Gran # (Auto) 0.0 01/14/20 16:39: Sodium 136.0, Potassium 4.31, Chloride 101.5, Carbon Dioxide 29.5, Anion Gap 9.31, BUN 18.7 H, Creatinine 0.86, Estimated GFR (MDRD) 62.00, BUN/Creatinine Ratio 21.74, Glucose 84.2, Calcium 9.15, Total Bilirubin 0.27, AST 37.3 H, ALT 19.7, Alkaline Phosphatase 75.7, Troponin I 0.027, Total Protein 6.98, Albumin 3.73, Globulin 3.25, Albumin/Globulin Ratio 1.14 01/14/20 16:30: TSH 3.260 ASSESSMENT: Please see below. 1. Clinical pneumonia 2. Dehydration 3. Anemia 4. Peripheral artery disease 5. Coronary artery disease PLAN: 1. Continue Telemetry 2. Chest x-ray 3. Type and cross match two units and hold. Plan and coordination of the patient's care discussed in the presence of Power Shovel Operator Helper and nurse. SCRIBED BY: Mimi ASHTON scribed while in presence of service performed by Dr. RANDY ZAPATA on 01/15/20 ([id number])
--- NOTE | 2020-01-15 11:41 | RS.PTINEVL ---
Subjective - Patient information Date of Evaluation: 01/15/20 Date of Arrival on Unit: 01/14/20 Admitted From:: Home Diagnosis: pneumonia, dehydration Usual Living Arrangement: Alone Home Environment: House, Stairs (few), Rail Medical History: Hypertension, COPD, Arthritis Medical History Comments:: CAD, GERD, hiatal hernia, DDD, PAD Surgical History: CABG Surgical History Comments:: B CEA, Fem pop bypass Medications: see chart Subjective Information/ Patient Comments:: pt states that she thinks she broke a tooth while eating finch this am. (notified nursing) - Level of function Prior to this admission, the patient could do the following:: Independent Selfcare, Independent Ambulation, Participated in Social Activities Outside home Current Level of Function: Partially Dependent Current Equipment Used at Home: Rolling walker, cane, standard walker. Interventions - Objective Patient Orientation: Person, Place, Time Current Interventions: IV's, Telemetry Range of Motion - ROM Right Upper Extremity AROM: WFL's Left Upper Extremity AROM: WFL's Right Lower Extremity AROM: WFL's Left Lower Extremity AROM: WFL's Muscle Strength - Muscle Strength Right Upper Extremity Strength: Mild Weakness (shld flex 3/5, elbow flex/ext 4- /5) Left Upper Extremity Strength: Mild Weakness (shld flex 3/5, elbow flex/ext 4- /5) Right Lower Extremity Strength: Mild Weakness (hip flex 4-/5, knee flex/ext 4/5, ankle DF/PF 4/5) Left Lower Extremity Strength: Mild Weakness (hip flex 4-/5, knee flex/ext 4/5, ankle DF/PF 4/5) Sensation - Sensation Right Upper Extremity Sensation: Intact/Normal Left Upper Extremity Sensation: Intact/Normal Right Lower Extremity Sensation: Intact/Normal Left Lower Extremity Sensation: Intact/Normal Palpation Palpation Findings: None/Normal Balance - Sitting Balance and Reactions Static Sitting Balance: Good Dynamic Sitting Balance: Fair Sitting Equilibrium Reactions: Delayed Left, Delayed Right Sitting Protective Reactions: Delayed Left, Delayed Right - Standing Balance and Reactions Static Standing Balance: Poor Dynamic Standing Balance: Poor Standing Equilibrium Reactions: Delayed Left Standing Protective Reactions: Delayed Left Functional Mobility - Bed Mobility Rolling R/L: Not Tested Scooting: Not Tested Supine to Sit: Not Tested Sit to Supine: Not Tested Comments:: pt seen sitting up in bedside chair - Transfers Sit to Stand: Min Assist Stand to Sit: Min Assist - Safety Awareness Safety Awareness: Fair JAVIER INDEX SCORE: n/a Ambulation - Ambulation Assistive Device Used: Rollator Orthotic/Prosthetic Device: No Distance: 140ft Assistance needed with Ambulation: Min Assist Gait Deviations: Forward posture, Short stride Ambulation Comments: increased lat sway Factors Affecting Ambulation: Decreased Balance, Weakness, Decreased Safety, Cognitive Status, Limited Endurance Treatment time - Units charged Gait trainin - Time with patient Length of Evaluation: 19 Total treatment time: 31 Patient Education - Education Patient Education: Home Exercise Program, Education of Plan of Care Teaching Recipient: Patient Teaching Methods: Discussion, Demonstration Assessment - Assessment Problem List:: Decreased level of function, Requires training/education, Decreased safety/Risk of falls, Weakness, Pain limits previous level of function Rehab Potential: Good Further Therapy Indicated?: Yes Candidate for Swing Bed for Therapy Services?: Feel pt may not be a candidate for swing bed due to high functional level. Evaluation Complexity: HISTORY: Medium, EXAM OF BODY SYSTEMS: Medium, CLINICAL PRESENTATION: Medium, CLINICAL DECISION MAKING: Medium Patient's Goal(s): "go back home" Short Term Goals GOAL #1: pt transfer sup to/from sit CGA Goal to be met by: 01/18/20 GOAL #2: pt transfer sit to stand with CGA Goal to be met by: 01/18/20 GOAL #3: pt amb with rwx 150ft with CGA Goal to be met by: 01/18/20 GOAL #4: Improve BLE strength 4 /5 Goal to be met by: 01/18/20 Care Home Goals GOAL #1: pt transferred sup to/from sit to/from stand independently Goal to be met by: 01/20/20 GOAL #2: pt amb with rwx functional household distances independently. Goal to be met by: 01/20/20 GOAL #3: ascend/descend 2-3 steps with HR CGA Goal to be met by: 01/20/20 Plan Plan of Care: Therapeutic EX, Therapeutic Activity Other:: gait training Frequency of Treatment: 1-2 X day, as tolerated Duration of Treatment: 5 days Anticipated Discharge Destination: Home Treatment Diagnosis (ICD 10 Codes): impaired balance R26.81. gait difficulty R 26.2. weakness M62.81. risk of falls z 91.81 Has the Physician been added for Co-signature?: Yes
--- NOTE | 2020-01-15 12:58 | DI ---
EXAM: Chest two view, frontal and lateral views. HISTORY: Shortness of air. Cough. COMPARISON: 11/09/2019, 09/25/2018. FINDINGS: Sternotomy wires noted, some fracture. Heart size is normal. Atherosclerotic calcificati ons present. Bronchial thickening noted which is stable. No consolidation, pleural effusion or pneu mothorax identified. Severe compression deformity of a mid thoracic vertebral body again noted. Sin ce the prior study, findings are unchanged. IMPRESSION: Stable chronic changes. No acute process.
[2020-01-15 17:37] LABS: CREATINE KINASE 24.3 U/L (30-135)
[2020-01-15 17:50] LABS: TROPONIN I 0.015 ng/ml (0.0000-0.120)
[2020-01-15] MEDS: XALATAN EACHEYE SCH (21:19)
[2020-01-15] MEDS: LIPITOR PO SCH (21:20)
[2020-01-16 05:18] LABS: BASOPHILS % (AUTO) 0.2 % (0.0-3.0); HEMATOCRIT 25.7 % (37.0-47.0); IMMATURE GRANULOCYTE % (AUTO) 0.3 % (0.0-5.0); LYMPHOCYTES # (AUTO) 1.7 K/uL (0.60-3.4); LYMPHOCYTES % (AUTO) 13.8 (10.0-50.0); MEAN CORPUSCULAR HGB CONC 31.1 (31.8-35.4); MEAN CORPUSCULAR VOLUME 93.1 fl (81.0-99.0); MONOCYTES # (AUTO) 0.8 K/uL (0.4-2.0); MONOCYTES % (AUTO) 6.5 (0-10); NEUTROPHILS # (AUTO) 9.7 K/ul (2.0-6.9); NEUTROPHILS % (AUTO) 79.2 % (42.2-75.2); PLATELET COUNT 326 10^3/uL (140-440); RED BLOOD COUNT 2.76 10^6/ul (4.20-5.40); WHITE BLOOD COUNT 12.24 K/ul (4.6-10.2)
[2020-01-16 05:34] LABS: ALANINE AMINOTRANSFERASE 15.8 U/L (0-35); ALBUMIN 3.08 g/dL (3.5-5.0); ALKALINE PHOSPHATASE 54.9 U/L (53-141); ASPARTATE AMINO TRANSFERASE 24.9 U/L (14-36); BILIRUBIN,TOTAL 0.21 mg/dL (0.2-1.3); BLOOD UREA NITROGEN 17.4 mg/dL (7-17); CALCIUM 8.28 mg/dL (8.4-10.2); CARBON DIOXIDE 23.3 mmol/L (22-30.0); CHLORIDE 108.2 mmol/L (98-107); CREATININE 0.63 mg/dL (0.60-1.30); GLUCOSE 107.5 mg/dL (74-106); POTASSIUM 3.89 mmol/L (3.5-5.1); SODIUM 136.4 mmol/L (134.5-145); TOTAL PROTEIN 5.98 g/dL (6.3-8.2)
[2020-01-16] MEDS: SODIUM CHLORIDE 1,000 ML IV SCH ×2 (06:23→11:53)
[2020-01-16] MEDS: COREG PO SCH ×2 (09:01→20:56)
[2020-01-16] MEDS: ASPIRIN EC PO SCH (09:01)
[2020-01-16] MEDS: VITAMIN E PO SCH (09:01)
[2020-01-16] MEDS: LIBRIUM PO SCH ×2 (09:01→20:56)
[2020-01-16] MEDS: FERROUS SULFATE PO SCH (09:02)
[2020-01-16] MEDS: SINGULAIR PO SCH (09:02)
[2020-01-16] MEDS: NON-FORMULARY MEDICATION (Vit C,E-Zn-Coppr-Lutein-Zeaxan [Preservision Areds-2] 250-200-40 PO SCH ×2 (09:03→20:56)
[2020-01-16] MEDS: ROCEPHIN 1 GM/50 ML D5W 1 GM/50 ML BAG IV SCH (09:03)
[2020-01-16] MEDS: DECADRON IM SCH (09:05)
[2020-01-16] MEDS: VITAMIN D PO SCH (09:08)
[2020-01-16] MEDS: NON-FORMULARY MEDICATION (Brimonidine-Timolol [Combigan] 0.2-0.5 % Drops) EACHEYE SCH ×2 (09:11→18:01)
[2020-01-16] MEDS: PROPYLENE GLYCOL 0.6% EACHEYE PRN (09:13)
[2020-01-16] MEDS: BRINZOLAMIDE EACHEYE SCH ×3 (09:14→18:01)
[2020-01-16 18:41] LABS: HEMATOCRIT 31.9 % (37.0-47.0); HEMOGLOBIN 10.1 g/dl (12.0-16.0)
[2020-01-16] MEDS: LIPITOR PO SCH (20:55)
[2020-01-16] MEDS: XALATAN EACHEYE SCH (20:56)
[2020-01-17 05:23] LABS: BASOPHILS % (AUTO) 0.3 % (0.0-3.0); EOSINOPHILS % (AUTO) 0.1 % (0.0-7.0); HEMATOCRIT 32.4 % (37.0-47.0); HEMOGLOBIN 10.3 g/dl (12.0-16.0); IMMATURE GRANULOCYTE % (AUTO) 0.4 % (0.0-5.0); LYMPHOCYTES # (AUTO) 1.7 K/uL (0.60-3.4); LYMPHOCYTES % (AUTO) 16.8 (10.0-50.0); MEAN CORPUSCULAR HEMOGLOBIN 29.2 pg (27.0-31.0); MEAN CORPUSCULAR HGB CONC 31.8 (31.8-35.4); MEAN CORPUSCULAR VOLUME 91.8 fl (81.0-99.0); MONOCYTES # (AUTO) 0.8 K/uL (0.4-2.0); MONOCYTES % (AUTO) 8.3 (0-10); NEUTROPHILS # (AUTO) 7.4 K/ul (2.0-6.9); NEUTROPHILS % (AUTO) 74.1 % (42.2-75.2); PLATELET COUNT 296 10^3/uL (140-440); RDW COEFFICIENT OF VARIATION 17.2 % (11.6-14.8); RED BLOOD COUNT 3.53 10^6/ul (4.20-5.40)
[2020-01-17 05:35] LABS: ALANINE AMINOTRANSFERASE 19.9 U/L (0-35); ALBUMIN 3.02 g/dL (3.5-5.0); ALKALINE PHOSPHATASE 56.6 U/L (53-141); ASPARTATE AMINO TRANSFERASE 31.8 U/L (14-36); BILIRUBIN,TOTAL 0.27 mg/dL (0.2-1.3); BLOOD UREA NITROGEN 17.5 mg/dL (7-17); CALCIUM 8.43 mg/dL (8.4-10.2); CARBON DIOXIDE 24.4 mmol/L (22-30.0); CHLORIDE 106.7 mmol/L (98-107); CREATININE 0.73 mg/dL (0.60-1.30); GLUCOSE 95.2 mg/dL (74-106); POTASSIUM 3.82 mmol/L (3.5-5.1); SODIUM 136.4 mmol/L (134.5-145); TOTAL PROTEIN 5.91 g/dL (6.3-8.2)
[2020-01-17] MEDS: VITAMIN D PO SCH (09:01)
[2020-01-17] MEDS: COREG PO SCH ×2 (09:02→16:33)
[2020-01-17] MEDS: ASPIRIN EC PO SCH (09:02)
[2020-01-17] MEDS: FERROUS SULFATE PO SCH (09:02)
[2020-01-17] MEDS: VITAMIN E PO SCH (09:02)
[2020-01-17] MEDS: LIBRIUM PO SCH ×2 (09:02→20:24)
[2020-01-17] MEDS: SINGULAIR PO SCH (09:02)
[2020-01-17] MEDS: PLAVIX PO SCH (09:03)
[2020-01-17] MEDS: DECADRON IM SCH (09:03)
[2020-01-17] MEDS: ROCEPHIN 1 GM/50 ML D5W 1 GM/50 ML BAG IV SCH (09:03)
[2020-01-17] MEDS: NON-FORMULARY MEDICATION (Vit C,E-Zn-Coppr-Lutein-Zeaxan [Preservision Areds-2] 250-200-40 PO SCH ×2 (09:19→20:25)
[2020-01-17] MEDS: PROPYLENE GLYCOL 0.6% EACHEYE PRN ×3 (09:20→16:35)
[2020-01-17] MEDS: BRINZOLAMIDE EACHEYE SCH ×3 (09:20→16:34)
[2020-01-17] MEDS: NON-FORMULARY MEDICATION (Brimonidine-Timolol [Combigan] 0.2-0.5 % Drops) EACHEYE SCH ×2 (09:20→16:34)
[2020-01-17] MEDS: LIPITOR PO SCH (20:24)
[2020-01-17] MEDS: XALATAN EACHEYE SCH (20:26)
[2020-01-18 05:24] VITALS: BP 186/80; TEMP 97.6
[2020-01-18 07:12] LABS: BASOPHILS % (AUTO) 0.2 % (0.0-3.0); HEMATOCRIT 34.2 % (37.0-47.0); HEMOGLOBIN 11.1 g/dl (12.0-16.0); IMMATURE GRANULOCYTE # (AUTO) 0.1 (0.0-1.0); IMMATURE GRANULOCYTE % (AUTO) 0.6 % (0.0-5.0); LYMPHOCYTES # (AUTO) 1.5 K/uL (0.60-3.4); MEAN CORPUSCULAR HEMOGLOBIN 29.7 pg (27.0-31.0); MEAN CORPUSCULAR HGB CONC 32.5 (31.8-35.4); MEAN CORPUSCULAR VOLUME 91.4 fl (81.0-99.0); MONOCYTES # (AUTO) 1.1 K/uL (0.4-2.0); MONOCYTES % (AUTO) 9.7 (0-10); NEUTROPHILS # (AUTO) 8.3 K/ul (2.0-6.9); NEUTROPHILS % (AUTO) 75.5 % (42.2-75.2); PLATELET COUNT 301 10^3/uL (140-440); RDW COEFFICIENT OF VARIATION 17.4 % (11.6-14.8); RED BLOOD COUNT 3.74 10^6/ul (4.20-5.40); WHITE BLOOD COUNT 10.98 K/ul (4.6-10.2)
[2020-01-18 07:26] LABS: ALANINE AMINOTRANSFERASE 23.9 U/L (0-35); ALBUMIN 3.21 g/dL (3.5-5.0); ALKALINE PHOSPHATASE 64.3 U/L (53-141); BILIRUBIN,TOTAL 0.37 mg/dL (0.2-1.3); BLOOD UREA NITROGEN 17.5 mg/dL (7-17); CALCIUM 8.69 mg/dL (8.4-10.2); CARBON DIOXIDE 28.7 mmol/L (22-30.0); CHLORIDE 102.7 mmol/L (98-107); CREATININE 0.7 mg/dL (0.60-1.30); GLUCOSE 103.5 mg/dL (74-106); POTASSIUM 3.94 mmol/L (3.5-5.1); SODIUM 135.6 mmol/L (134.5-145); TOTAL PROTEIN 6.24 g/dL (6.3-8.2)
[2020-01-18] MEDS: PLAVIX PO SCH (10:26)
[2020-01-18] MEDS: VITAMIN E PO SCH (10:26)
[2020-01-18] MEDS: SINGULAIR PO SCH (10:26)
[2020-01-18] MEDS: ASPIRIN EC PO SCH (10:27)
[2020-01-18] MEDS: FERROUS SULFATE PO SCH (10:27)
[2020-01-18] MEDS: COREG PO SCH (10:27)
[2020-01-18] MEDS: LIBRIUM PO SCH (10:27)
[2020-01-18] MEDS: VITAMIN D PO SCH (10:28)
[2020-01-18] MEDS: DECADRON IM SCH (10:28)
[2020-01-18] MEDS: NON-FORMULARY MEDICATION (Brimonidine-Timolol [Combigan] 0.2-0.5 % Drops) EACHEYE SCH (10:31)
[2020-01-18] MEDS: BRINZOLAMIDE EACHEYE SCH ×2 (10:31→13:50)
[2020-01-18] MEDS: PROPYLENE GLYCOL 0.6% EACHEYE PRN (10:31)
[2020-01-18] MEDS: NON-FORMULARY MEDICATION (Vit C,E-Zn-Coppr-Lutein-Zeaxan [Preservision Areds-2] 250-200-40 PO SCH (10:38)
[2020-01-18] MEDS: ROCEPHIN 1 GM/50 ML D5W 1 GM/50 ML BAG IV SCH (10:59)
--- NOTE | 2020-01-18 12:34 | CM.DICTOOL ---
ADMISSION: 01/14/20 16:26 DISCHARGE: JANUARY 18, 2020 DATE OF SERVICE: 01/18/20 FINAL DIAGNOSIS PNEUMONIA, CLINICAL DEHYDRATION ANEMIA, TRANSFUSION OF 1 UNIT PACKED CELLS PNEUMONIA, (SERRATIA MARCESCENS, 10/2019) COPD HYPERTENSION DYSLIPIDEMIA DIABETES, TYPE 2 (A1C 5.5 07/14) CAD PAD CERVICAL RADICULOPATHY POLYARTHRITIS PULMONARY NODULES CABG FEMORAL/POPLITEAL BYPASS BILATERAL CAROTID ENDARTERECTOMY, 1999 LAST VITALS Temp Pulse Resp BP Pulse Ox 97.6 F 70 14 186/80 H 97 01/18/20 05:08 01/18/20 05:08 01/18/20 05:08 01/18/20 05:08 01/18/20 05:08 TAKE THESE MEDICATIONS AT HOME Amlodipine Besylate (Amlodipine Besylate 5 Mg Tablet) 5 mg PO BEDTIME KARTIK (RX) Aspirin (Aspirin 81 Mg Tablet.) 81 mg PO DAILYWM [facility] Last Admin: 01/18/20 10:27 Dose: 81 mg Documented by: Atorvastatin Calcium (Atorvastatin Calcium 20 Mg Tablet) 40 mg PO BEDTIME [facility] Last Admin: 01/17/20 20:24 Dose: 40 mg Documented by: Carvedilol (Carvedilol 12.5 Mg Tablet) 12.5 mg PO BIDWM [facility] Last Admin: 01/18/20 10:27 Dose: 12.5 mg Documented by: Chlordiazepoxide HCl (Chlordiazepoxide Hcl 5 Mg Capsule) 5 mg PO BID [facility] Last Admin: 01/18/20 10:27 Dose: 5 mg Documented by: Cholecalciferol (Cholecalciferol (Vitamin D3) 1,000 Unit Tablet) 1,000 unit PO DAILY [facility] Last Admin: 01/18/20 10:28 Dose: 1,000 unit Documented by: Clopidogrel Bisulfate (Clopidogrel Bisulfate 75 Mg Tablet) 75 mg PO DAILY [facility] Last Admin: 01/18/20 10:26 Dose: 75 mg Documented by: Ferrous Sulfate (Ferrous Sulfate 324 Mg Tablet.) 324 mg PO DAILY KARTIK (RX) Last Admin: 01/18/20 10:27 Dose: 324 mg Documented by: Latanoprost (Latanoprost 2.5 Ml Opth Luisa) 1 drop EACHEYE BEDTIME [facility] Last Admin: 01/17/20 20:26 Dose: 1 drop Documented by: Montelukast Sodium (Montelukast Sodium 10 Mg Tablet) 10 mg PO DAILY [facility] Last Admin: 01/18/20 10:26 Dose: 10 mg Documented by: Non-Formulary Medication (Brinzolamide [Azopt]) 1 drop EACHEYE 0800,1200,1700 [facility] Last Admin: 01/18/20 10:31 Dose: 1 drop Documented by: Non-Formulary Medication (Vit C,P-Mg-Vlgha-Lutein-Zeaxan [Preservision Areds-2]) 1 tab PO BID [facility] Last Admin: 01/18/20 10:38 Dose: 1 tab Documented by: Non-Formulary Medication (Brimonidine-Timolol [Combigan]) 1 drop EACHEYE 0800,1700 [facility] Last Admin: 01/18/20 10:31 Dose: 1 drop Documented by: Non-Formulary Medication (Propylene Glycol [Systane Complete]) 1 drop EACHEYE PRN PRN PRN Reason: DRY EYE Last Admin: 01/18/20 10:31 Dose: 1 drop Documented by: Omeprazole (Omeprazole 20 Mg Capsule.) 20 mg PO DAILY PRN PRN Reason: Heartburn Vitamin E (Vitamin E (Dl,Tocopheryl Acet) 400 Unit Capsule) 400 unit PO DAILY [facility] Last Admin: 01/18/20 10:26 Dose: 400 unit Documented by: KEFLEX 500 MG TID FOR 7 DAYS (RX) ALLERGIES brimonidine [From Alphagan P] Adverse Reaction (Verified 01/14/20 19:00) METHAPLAMED Adverse Reaction (Uncoded 01/14/20 19:00) DISCONTINUED MEDICATIONS NONE NEW PRESCRIPTIONS: KEFLEX 500 MG TID FOR 7 DAYS FERROUS SULFATE 325 MG DAILY AMLODIPINE 5 MG AT BEDTIME DAILY SMOKING: NOT APPLICABLE DISEASE SPECIFIC EDUCATION: NEW MEDICATION DIET (NO SPECIAL DIET, ENCOURAGED SMALL FREQUENT MEALS) APPOINTMENT LAB REVIEW: 01/18/20 07:07 01/18/20 07:07 01/18/20 07:07: Sodium 135.6, Potassium 3.94, Chloride 102.7, Carbon Dioxide 28.7, Anion Gap 8.14, BUN 17.5 H, Creatinine 0.70, Estimated GFR (MDRD) 79.00, BUN/Creatinine Ratio 25.00, Glucose 103.5, Calcium 8.69, Total Bilirubin 0.37, AST 38.0 H, ALT 23.9, Alkaline Phosphatase 64.3, Total Protein 6.24 L, Albumin 3.21 L, Globulin 3.03, Albumin/Globulin Ratio 1.05 01/18/20 07:07: WBC 10.98 H, RBC 3.74 L, Hgb 11.1 L, Hct 34.2 L, MCV 91.4, MCH 29.7, MCHC 32.5, RDW Coeff of Alyssa 17.4 H, Plt Count 301, Immature Gran % (Auto) 0.6, Neut % (Auto) 75.5 H, Lymph % (Auto) 14.0, [place] % (Auto) 9.7, Eos % (Auto) 0.0, Baso % (Auto) 0.2, Neut # (Auto) 8.3 H, Lymph # (Auto) 1.5, [place] # (Auto) 1.1, Eos # (Auto) 0.0, Baso # (Auto) 0.0, Immature Gran # (Auto) 0.1 PLAN: DISCHARGE: HOME ACTIVITY: RESUME TOLERATED USE ROLLATOR AN APPOINTMENT IS SCHEDULED WITH DR. ZAPATA/BERNIE PHELPS APRN/MARICHUY DUNNE APRN ON January AT 10:45 AM CODE STATUS: DO NOT INTUBATE, CPR ONLY MS. HINES IS ALERT AND ORIENTED X 4. SHE REPORTS SHE IS GLAD TO BE GOING HOME TODAY, BUT IS GOING TO MISS PUSHING A BUTTON FOR SOMETHING SHE WANTS/NEEDS. SHE STATES "I WILL JUST HAVE TO DO IT MYSELF". SHE IS INDEPENDENT WITH BED MOBILITY AND IS ABLE TO TRANSFER TO THE CHAIR WITHOUT ASSISTANCE. SHE IS AMBULATORY TO THE BATHROOM AND IN THE ROOM WITH SBA OF NURSING, BUT ALSO USES THE ROLLATOR. MS. HINES IS INDEPENDENT WITH ACTIVITIES OF DAILY LIVING. MEAL INTAKES ARE GOOD AT 10-75%. SHE IS SELF FEEDING. NO REPORTS OF ABDOMINAL PAIN OR NAUSEA. MS. HINES IS CONTINENT OF BOWEL AND BLADDER. HYDRATION STATUS IS IMPROVED. SKIN IS INTACT, BUT A BRUISE IS NOTED TO THE RIGHT FOREARM. MD BERNIE HINES APRN
--- NOTE | 2020-01-18 13:01 | HP ---
DATE OF SERVICE: 01/14/20 REASON FOR HOSPITALIZATION: Weakness, difficulty with ambulation, exertional dyspnea. HISTORY OF PRESENT ILLNESS: 89-year-old white female brought to the emergency room by family because of above complaints of nearly several days duration. She lives by herself, not been able to take care of herself. The patient has multiple medical problems, coronary heart disease, coronary artery bypass surgery, severe peripheral vascular disease, carotid endarterectomy-bilateral, osteoarthritis, chronic anemia. The patient had maybe mild cough but no congestion, no fever, no chills. PAST MEDICAL/SURGICAL HISTORY: Chronic lung disease Coronary artery disease DJD of the spine Generalized osteoarthritis Dyslipidemia Glaucoma Hypertension Peripheral arterial disease History of bilateral carotid endarterectomy History of femoral bypass Popliteal bypass Coronary artery bypass surgery REVIEW OF SYSTEMS: CONSTITUTIONAL: Weakness and fatigue. No night sweats. No malaise, lethargy. No fever or chills. HEENT: Eyes: No visual changes. No eye pain. No eye discharge. ENT: No runny nose. No epistaxis. No sinus pain. No sore throat. No odynophagia. No ear pain. No congestion. RESPIRATORY: Mild cough, maybe congestion. No hemoptysis. CARDIOVASCULAR: Shortness of breath. No angina symptoms. No CHF symptoms. No atypical chest pain for CAD. No palpitations. No PND. No orthopnea. GASTROINTESTINAL: Poor appetite. No abdominal pain. No nausea or vomiting. No diarrhea or constipation. No hematemesis. No hematochezia. GENITOURINARY: No urgency. No frequency. No dysuria. No hematuria. No obstructive symptoms. No discharge. No pain. No significant abnormal bleeding. MUSCULOSKELETAL: Weakness with generalized osteoarthritis. Unable to walk without support. NEUROLOGICAL: No headache. No neck pain. No syncope. No seizures. No dizziness. PSYCHIATRIC: Not anxious. No depression. No suicidal thoughts. No homicidal thoughts. SKIN: No rash. No lesions. No wounds. ENDOCRINE: No unexplained weight loss. No weight gain. HEMATOLOGIC/LYMPHATIC: No anemia. No purpura. No petechiae. No prolonged or excessive bleeding. No palpable lymph nodes. PERSONAL/FAMILY/SOCIAL HISTORY: The patient is a , lives by herself with the help of her two sons. Smoker. No alcohol abuse. She tries to do all activity of daily living. No history of recent falls. The patient's code status is DNI, CPR only. MEDICATIONS: Aspirin Carvedilol Cholecalciferol Singulair Omeprazole Plavix Atorvastatin Chlordizepoxide Combigan ALLERGIES: BRIMONIDINE (METHAPLAMED) PHYSICAL EXAMINATION: GENERAL: The patient is oriented to time, place and person. VITAL SIGNS: Temperature 96, pulse 88, respiratory rate 20, blood pressure 160/66, pulse ox 96% on room air. The patient looks pale. HEENT: Head normocephalic, atraumatic. Eyes: Extraocular muscles are intact. Pupils are equal, round and reactive to light and accommodation. Ears: No lesions. Nose appeared normal. Throat: No exudate or erythema. NECK: Positive for scar of bilateral carotid endarterectomy seen. Supple. No JVD, no carotid bruit. No lymphadenopathy or thyromegaly. LUNGS: Decreased breath sounds. Good air entry. Clear to auscultation. Percussion note normal. Chest symmetrical. HEART: S1, S2, no S3. No murmur. No cyanosis or clubbing. No ascites. Pulses: Dorsalis pedis and posterior tibial pulses +1 to +2 bilaterally. ABDOMEN: Soft. Nontender. Bowel sounds active. No ascites. No CVA tenderness. No mass felt. EXTREMITIES: Feeble pulses. Trace edema. Full range of motion of all extremities, equal. NEUROLOGIC: No focal deficit. Cranial nerves II through XII are grossly intact. No headache, no double vision or headache. SKIN: Dry. Mucous membranes dry. LYMPHATIC: No palpable lymph nodes/no lymphedema. MUSCULOSKELETAL: Normal joints with no swelling. Muscle tone is normal. LABS: Hemoglobin 9.3, hematocrit 30, WBC 7,900, normal differential. Lactic acid low. Procalcitonin level low. Creatinine 0.8, BUN 18, liver profile normal. Covid negative. Flu negative. ASSESSMENT: 1. Cough, generalized weakness, rule out pneumonia. 2. Acute bronchitis - just the beginning of it, questionable diagnosis. 3. Weakness. 4. Inability to walk without support. 5. Dehydration. 6. History of coronary artery bypass surgery with coronary artery disease, rule out ME. 7. Bilateral carotid endarterectomy. 8. Rule out syncope or TIAs with deterioration of mental status in some ways acording to the family, both sons along with weakness of extremities. 9. Dyslipidemia. 10. History of hypertension. 11. Peripheral arterial disease with femoral popliteal bypass. 12. Anemia, chronic with myelodysplastic syndrome. PLAN: 1. Monitor CBC, CMP. 2. Telemetry. 3. Serial cardiac markers and EKGs. 4. IV fluids. 5. Sons feel that the patient living by herself, not being able to take care of herself, both of them visit her every day basis but not able to care for her. They strongly feel that the patient should be in the snf. Will try to convince the patient. 6. Will do echocardiogram. 7. Continue all the medications she has been on. CONDITION: Stable. TIME SPENT: More than 70 minutes. CHIDI
--- NOTE | 2020-01-18 13:19 | PN ---
DATE OF SERVICE: 01/17/20 SUBJECTIVE: The patient was seen and examined today. The patient's condition has improved. She is feeling better. Her color looks a lot better. She was given a unit of packed red cells. REVIEW OF SYSTEMS: CONSTITUTIONAL: Feeling better, feeling stronger. No night sweats. No fatigue, malaise, lethargy. No fever or chills. HEENT: Eyes: No visual changes. No eye pain. No eye discharge. ENT: No runny nose. No epistaxis. No sinus pain. No sore throat. No odynophagia. No congestion. RESPIRATORY: No cough, no congestion. No hemoptysis. No shortness of breath. CARDIOVASCULAR: No angina symptoms. No CHF symptoms. No atypical chest pain for CAD. No palpitations. No PND. No orthopnea. GASTROINTESTINAL: Appetite has improved. No abdominal pain. No nausea or vomiting. No diarrhea or constipation. No hematemesis. No hematochezia. GENITOURINARY: No urgency. No frequency. No dysuria. No hematuria. No obstructive symptoms. No discharge. No pain. No significant abnormal bleeding. MUSCULOSKELETAL: No musculoskeletal pain; no joint swelling. NEUROLOGICAL: No headache. No neck pain. No syncope. No seizures. No dizziness. PSYCHIATRIC: Not anxious. No depression. No suicidal thoughts. No homicidal thoughts. SKIN: No rash. No lesions. No wounds. ENDOCRINE: No unexplained weight loss. No weight gain. HEMATOLOGIC/LYMPHATIC: No anemia. No purpura. No petechiae. No prolonged or excessive bleeding. No palpable lymph nodes. PHYSICAL EXAMINATION: VITAL SIGNS: Temperature 97.3, pulse 64, respiratory rate 18, blood pressure 180/70, pulse ox 97%. HEENT: Head normocephalic, atraumatic. Eyes: Extraocular muscles are intact. Pupils are equal, round and reactive to light and accommodation. Ears: No lesions. Nose appeared normal. Throat: No exudate or erythema. NECK: Supple. No JVD, no carotid bruit. No lymphadenopathy or thyromegaly. LUNGS: Decreased breath sounds but clear to auscultation. Percussion note normal. Chest symmetrical. HEART: S1, S2, no S3. No murmurs. No cyanosis or clubbing. No ascites. Pulses: Dorsalis pedis and posterior tibial pulses +1 to +2 bilaterally. ABDOMEN: Soft. Nontender. Bowel sounds active. No CVA tenderness. No mass felt. EXTREMITIES: No edema. Full range of motion of all extremities, equal. NEUROLOGIC: No focal deficit. Cranial nerves II through XII are grossly intact. No headache, no double vision or headache. SKIN: Not dry. Intact. Turgor - normal. LYMPHATIC: No palpable lymph nodes/no lymphedema. MUSCULOSKELETAL: Normal joints with no swelling. Muscle tone is normal. LABS: Hemoglobin 10.3, hematocrit 32, WBC 10,000, normal differential. ASSESSMENT: 1. Anemia. 2. Myelodysplastic syndrome seems to have improved. 3. Dehydration has resolved. 4. The patient's fatigue is better. PLAN: 1. The patient is on daily Dexamethasone. 2. Will continue Rocephin. 3. Cardiovascular status is stable. 4. The patient had an echo done which showed normal LV contractility, mitral valve prolapse, calcified aortic valves. 5. May be discharged tomorrow. 6. Declined to be seen by hematology/oncologist at the present time. 7. The patient is going to be explained about residential placement. The sons were concerned and I told them it is up to them if they decide to put her in the residential, will proceed with it. Right now it is kind of dangerous because Covid is breaking out in the nursing homes. CONDITION: Stable. TIME SPENT: More than 30 minutes. Plan and coordination of the patient's care discussed in the presence of nurse. CHIDI
--- NOTE | 2020-01-18 13:22 | PN ---
DATE OF SERVICE: 01/14/20 SUBJECTIVE: Ms. Marquez was seen and examined in the emergency room by ER attending and she was hospitalized with generalized weakness and dehydration. The patient is going to be admitted to the hospital with telemetry and routine telemetry orders. Cardiovascular status so far is stable. TIME SPENT: More than 30 minutes. Plan and coordination of the patient's care discussed in the presence of nurse. CHIDI
--- NOTE | 2020-01-18 13:46 | PN ---
DATE OF SERVICE: 01/16/20 SUBJECTIVE: 89-year-old white female hospitalized with weakness, possibility of pneumonia, dehydration. Condition has improved. Hydration status has improved. Kidney functions are a lot better. They seem to be coming from anemia. She is also short of breath and fatigued, symptomatic anemia. Plan to give one unit of packed red cells. There is no evidence of active GI bleed. The patient has been transfused in the past before. She has myelodysplastic syndrome. She has been on iron supplements. PHYSICAL EXAMINATION: GENERAL: The patient looks pale. HEENT: Head normocephalic, atraumatic. Eyes: Extraocular muscles are intact. Pupils are equal, round and reactive to light and accommodation. Ears: No lesions. Nose appeared normal. Throat: No exudate or erythema. NECK: Supple. No JVD, no carotid bruit. No lymphadenopathy or thyromegaly. LUNGS: Clear to auscultation. Percussion note normal. Chest symmetrical. HEART: S1, S2, no S3. No murmurs. No cyanosis or clubbing. No ascites. Pulses: Dorsalis pedis and posterior tibial pulses +1 to +2 bilaterally. ABDOMEN: Soft. Nontender. Bowel sounds active. No CVA tenderness. No mass felt. EXTREMITIES: No edema. Full range of motion of all extremities, equal. NEUROLOGIC: No focal deficit. Cranial nerves II through XII are grossly intact. No headache, no double vision or headache. SKIN: Dry. Turgor - somewhat better with hydration. LYMPHATIC: No palpable lymph nodes/no lymphedema. MUSCULOSKELETAL: Normal joints with no swelling. Muscle tone is normal. ASSESSMENT: 1. Fatigue, tired feeling. 2. Dehydration seems to have resolved. PLAN: 1. Give 1 unit of packed red cells for symptomatic anemia. 2. Continue iron supplements. 3. The son is present in the room and he wants the [facility] as the patient is living by herself and she is neglecting to eat. She is unable to take care of a lot of daily activity of living. Both sons visit her every day but not enough. LABS: Today hemoglobin 8, hematocrit 25, WBC 12,000, normal differential. Creatinine 0.6, BUN 17, potassium 3.8. TSH normal. TIME SPENT: More than 30 minutes. Plan and coordination of the patient's care discussed in the presence of nurse. CHIDI
[2020-01-18] MEDS ORDERED: NORVASC PO SCH (21:00)
--- NOTE | 2020-01-19 11:24 | DS ---
DATE OF SERVICE: 01/18/2020 FINAL DIAGNOSIS: PNEUMONIA, CLINICAL DEHYDRATION ANEMIA, TRANSFUSION OF 1 UNIT PACKED CELLS PNEUMONIA, (SERRATIA MARCESCENS, 10/2019) COPD HYPERTENSION DYSLIPIDEMIA DIABETES, TYPE 2 (A1C 5.5 07/14) CAD PAD CERVICAL RADICULOPATHY POLYARTHRITIS PULMONARY NODULES CABG FEMORAL/POPLITEAL BYPASS BILATERAL CAROTID ENDARTERECTOMY, 1999 LAST VITALS: Temp Pulse Resp BP Pulse Ox 97.6 F 70 14 186/80 H 97 01/18/20 05:08 01/18/20 05:08 01/18/20 05:08 01/18/20 05:08 01/18/20 05:08 TAKE THESE MEDICATIONS AT HOME: Amlodipine Besylate (Amlodipine Besylate 5 Mg Tablet) 5 mg PO BEDTIME KARTIK (RX) Aspirin (Aspirin 81 Mg Tablet.) 81 mg PO DAILYWM [facility] Last Admin: 01/18/20 10:27 Dose: 81 mg Documented by: Atorvastatin Calcium (Atorvastatin Calcium 20 Mg Tablet) 40 mg PO BEDTIME [facility] Last Admin: 01/17/20 20:24 Dose: 40 mg Documented by: Carvedilol (Carvedilol 12.5 Mg Tablet) 12.5 mg PO BIDWM [facility] Last Admin: 01/18/20 10:27 Dose: 12.5 mg Documented by: Chlordiazepoxide HCl (Chlordiazepoxide Hcl 5 Mg Capsule) 5 mg PO BID [facility] Last Admin: 01/18/20 10:27 Dose: 5 mg Documented by: Cholecalciferol (Cholecalciferol (Vitamin D3) 1,000 Unit Tablet) 1,000 unit PO DAILY [facility] Last Admin: 01/18/20 10:28 Dose: 1,000 unit Documented by: Clopidogrel Bisulfate (Clopidogrel Bisulfate 75 Mg Tablet) 75 mg PO DAILY [facility] Last Admin: 01/18/20 10:26 Dose: 75 mg Documented by: Ferrous Sulfate (Ferrous Sulfate 324 Mg Tablet.) 324 mg PO DAILY KARTIK (RX) Last Admin: 01/18/20 10:27 Dose: 324 mg Documented by: Latanoprost (Latanoprost 2.5 Ml Opth Luisa) 1 drop EACHEYE BEDTIME [facility] Last Admin: 01/17/20 20:26 Dose: 1 drop Documented by: Montelukast Sodium (Montelukast Sodium 10 Mg Tablet) 10 mg PO DAILY [facility] Last Admin: 01/18/20 10:26 Dose: 10 mg Documented by: Non-Formulary Medication (Brinzolamide [Azopt]) 1 drop EACHEYE 0800,1200,1700 [facility] Last Admin: 01/18/20 10:31 Dose: 1 drop Documented by: Non-Formulary Medication (Vit C,R-Yt-Zhqfw-Lutein-Zeaxan [Preservision Areds-2]) 1 tab PO BID [facility] Last Admin: 01/18/20 10:38 Dose: 1 tab Documented by: Non-Formulary Medication (Brimonidine-Timolol [Combigan]) 1 drop EACHEYE 0800,1700 [facility] Last Admin: 01/18/20 10:31 Dose: 1 drop Documented by: Non-Formulary Medication (Propylene Glycol [Systane Complete]) 1 drop EACHEYE PRN PRN PRN Reason: DRY EYE Last Admin: 01/18/20 10:31 Dose: 1 drop Documented by: Omeprazole (Omeprazole 20 Mg Capsule.) 20 mg PO DAILY PRN PRN Reason: Heartburn Vitamin E (Vitamin E (Dl,Tocopheryl Acet) 400 Unit Capsule) 400 unit PO DAILY [facility] Last Admin: 01/18/20 10:26 Dose: 400 unit Documented by: KEFLEX 500 MG TID FOR 7 DAYS (RX) ALLERGIES: brimonidine [From Alphagan P] Adverse Reaction (Verified 01/14/20 19:00) METHAPLAMED Adverse Reaction (Uncoded 01/14/20 19:00) DISCONTINUED MEDICATIONS: NONE NEW PRESCRIPTIONS: KEFLEX 500 MG TID FOR 7 DAYS FERROUS SULFATE 325 MG DAILY AMLODIPINE 5 MG AT BEDTIME DAILY SMOKING: NOT APPLICABLE DISEASE SPECIFIC EDUCATION: NEW MEDICATION DIET (NO SPECIAL DIET, ENCOURAGED SMALL FREQUENT MEALS) APPOINTMENT LAB REVIEW: 01/18/20 07:07 01/18/20 07:07 01/18/20 07:07: Sodium 135.6, Potassium 3.94, Chloride 102.7, Carbon Dioxide 28.7, Anion Gap 8.14, BUN 17.5 H, Creatinine 0.70, Estimated GFR (MDRD) 79.00, BUN/Creatinine Ratio 25.00, Glucose 103.5, Calcium 8.69, Total Bilirubin 0.37, AST 38.0 H, ALT 23.9, Alkaline Phosphatase 64.3, Total Protein 6.24 L, Albumin 3.21 L, Globulin 3.03, Albumin/Globulin Ratio 1.05 01/18/20 07:07: WBC 10.98 H, RBC 3.74 L, Hgb 11.1 L, Hct 34.2 L, MCV 91.4, MCH 29.7, MCHC 32.5, RDW Coeff of Alyssa 17.4 H, Plt Count 301, Immature Gran % (Auto) 0.6, Neut % (Auto) 75.5 H, Lymph % (Auto) 14.0, Bent % (Auto) 9.7, Eos % (Auto) 0.0, Baso % (Auto) 0.2, Neut # (Auto) 8.3 H, Lymph # (Auto) 1.5, Bent # (Auto) 1.1, Eos # (Auto) 0.0, Baso # (Auto) 0.0, Immature Gran # (Auto) 0.1 DISCHARGE INSTRUCTION: DISCHARGE: HOME. AN APPOINTMENT IS SCHEDULED WITH DR. ZAPATA/BERNIE PHELPS APRN/MARICHUY DUNNE APRN ON January AT 10:45 AM CODE STATUS: DO NOT INTUBATE, CPR ONLY ACTIVITY: RESUME TOLERATED USE ROLLATOR HOSPITAL COURSE: 89 year old white female hospitalized with weakness, unable to walk, weak and tired feeling. The patient had bronchitis and also had dehydration. She was given IV fluids. The patient's hgb went down to 8. She was given 1 unit of packed red cells. There was no evidence of active GI bleed. The patient has myelodysplastic syndrome and likely hct drops periodically and she has been given some blood transfusions in the past. She has declined to go to hematology/oncologist. Also she declined any colonoscopy or any further workup or even CT scan of the abdomen. She will resign DNR. She says that I feel fine. I feel the way I feel I don't want any test or any other physician to be seen. At the time of discharge the patient's appetite has improved. She feels a lot better. Hgb was 10.3, hct 32, creatinine 0.7, BUN 17. The patient has multiple comorbidities like coronary bypass surgery, endarterectomy, FEM POP, pulses are extremely feeble for dorsalis pedis and posterior tibials. She is very poor candidate for any procedures. The patient is DNR and would like to go home. The son [facility] to [facility] to the [facility], he is thinking probably about assisted living. At present time she is going to be doing home. COVID effecting both nursing homes is not the right time for her to go at least for next couple of weeks. She understands that. The patient lives by herself with help of two sons that visit her everyday. She is going to be seen in 5-7 days. She is going to be on iron supplements. TIME SPENT: More than 60 minutes. CHIDI
--- NOTE | 2020-01-19 11:25 | PN ---
01/14/2020: Level 5 01/15/2020: Intermediate 01/16/2020: Intermediate 01/17/2020: Intermediate 01/18/2020: D as in discharge MTDD
--- NOTE | 2020-01-20 08:55 | ECHO2D ---
Date of Exam: 01/17/2020 Ordering Physician: DR. ZAPATA Room #: [id number] Reason for Echo: HYPERTENSION, HYPERLIPIDEMIA, CORONARY ARTERY DISEASE, PERIPHERAL ARTERY DISEASE M-Mode Normal Adult Results LV Dimensions Normal Adult Results AoV Opening excursions >1.6 >1.6 LVEDD-base- 3.5-5.8 4.4 Ao root dimensions 2.0-3.7 2.9 LVESD-base- 3.1-4.6 L. Atrium dimensions 1.9-3.8 3.7 Post. Wall thickness 0.8-1.1 1.0 IV septum (thickness) 0.7-1.2 1.0 Post. Wall excursion 0.72-1.3 NORMAL Septal motion NORMAL Systolic motion R. Ventricular cavity 1.5-2.0 NORMAL LVEF 60% 62% Paradoxical septal wall motion NORMAL 2-D : 2-D M Mode Echocardiogram was performed using apical four chamber and left parasternal long and short axis views. Mitral, tricuspid and aortic valves appear to be normal. Contractility of the left ventricle seems to be normal, so is the cavity size. Left atrial cavity size and aortic root appear to be normal. There is no pericardial effusion. There is no thrombus noted in the left ventricle or left atrial cavity. No mitral valve prolapse noted. COLOR FLOW: MILD MITRAL REGURGITATION M-MODE: MV: MAY BE MITRAL VALVE PROLAPSE AV: NORMAL TV: NORMAL PV: NORMAL CHAMBER SIZE: NORMAL WALL MOTION: NORMAL PERICARDIUM: NORMAL INTERPRETATION: 1. NORMAL 2'D' 'M' MODE ECHOCARDIOGRAM 2. MILD MITRAL REGURGITATION MTDD
== END 2020-01-18 14:30 | disposition home or self-care (01) | DRG 948 ==
LOC: ED 14:01 → MEDSURG A 16:26
PROVIDERS: ADMIT Internal Medicine; ATTEND Internal Medicine
DX: I10 Essential (primary) hypertension; E11.9 Type 2 diabetes mellitus without complications; I25.10 Atherosclerotic heart disease of native coronary artery without angina pectoris; R53.1 Weakness; R06.00 Dyspnea, unspecified; D64.9 Anemia, unspecified; J44.1 Chronic obstructive pulmonary disease with (acute) exacerbation; E86.0 Dehydration; I73.9 Peripheral vascular disease, unspecified; R05 Cough